=== PATIENT | female | born 1955 | race Caucasian/White ===

== ENCOUNTER 2018-02-08 07:48 | Observation (INO) | payer MEDICARE, OTHER ==
[~2018-02-08] VITALS: Ht 165.1 cm; Wt 109.1 kg
[~2018-02-08 07:48] MED LIST: ALPR1TAB2 PO; APIX5TAB3 PO; CARV-50 PO; CYCL-1 PO; FURO40TA4 PO; GLIM4TAB79 PO; LEVO100T PO; LEVO175T2 PO; METF500T PO; OXYC-150 PO; POTA10TA36 PO; ZES10T PO
[2018-02-08] MEDS ORDERED: dexamethasone sod phosphate 10mg/ml inj IV STA (08:09)
[2018-02-08] MEDS ORDERED: ketorolac trometh. 30mg/ml inj. IV ONE (08:10)
[2018-02-08] MEDS ORDERED: orphenadrine citrate 60mg/2ml inj. IM ONE (08:10)
[2018-02-08 10:27] LABS: BASOPHILS % (AUTO) 0.5 % (0-1); EOSINOPHILS # (AUTO) 0.2 X10'3 (0-0.9); EOSINOPHILS % (AUTO) 1.9 % (0-6); HEMATOCRIT 41.5 % (35.0-45.0); HEMOGLOBIN 13.6 g/dl (12.0-16.0); LYMPHOCYTES # (AUTO) 1.4 X10'3 (1.1-4.8); LYMPHOCYTES % (AUTO) 14.7 % (21-51); MEAN CORPUSCULAR HEMOGLOBIN 30.2 PG (27.0-31.0); MEAN CORPUSCULAR HGB CONC 32.8 % (33.0-36.5); MEAN CORPUSCULAR VOLUME 92.3 FL (78-98); MEAN PLATELET VOLUME 11.6 FL (7.4-10.4); MONOCYTES # (AUTO) 0.7 X10'3 (0-0.9); MONOCYTES % (AUTO) 6.9 % (2-12); NEUTROPHILS # (AUTO) 7.3 X10'3 (1.8-7.7); PLATELET COUNT 143 X10'3 (140-440); RED CELL DISTRIBUTION WIDTH 14.6 % (11.5-14.5); WHITE BLOOD COUNT 9.5 X10'3 (4.5-11.0)
[2018-02-08 10:28] LABS: INR 1.1 INR; PROTHROMBIN TIME 10.8 SECONDS (9.0-12.0)
[2018-02-08 10:39] LABS: ALANINE AMINOTRANSFERASE 10 U/L (12-78); ALBUMIN 3.6 G/DL (3.4-5.0); ALBUMIN/GLOBULIN RATIO 0.9 (1.1-1.5); ALKALINE PHOSPHATASE 91 IU/L (46-116); ANION GAP 12 (8-16); ASPARTATE AMINO TRANSFERASE 9 U/L (10-37); BILIRUBIN,TOTAL 0.5 MG/DL (0.1-1.0); BLOOD UREA NITROGEN 24 MG/DL (7-18); BUN/CREATININE RATIO 15.3 (6.6-38.0); CALCIUM 9.2 MG/DL (8.5-10.1); CHLORIDE 100 MMOL/L (99-107); CREATININE 1.57 MG/DL (0.40-0.90); POTASSIUM 3.7 MMOL/L (3.5-5.1); SODIUM 134 MMOL/L (135-145); TOTAL CARBON DIOXIDE 22.1 MMOL/L (24-32); TOTAL PROTEIN 7.4 G/DL (6.4-8.2); eGFR 33 ML/MIN
[2018-02-08 10:45] LABS: GLUCOSE 488 MG/DL (70-104)
[2018-02-08] MEDS ORDERED: heparin 25,000 UNIT/250ml bag 250 ML IV SCH (10:48)
[2018-02-08] MEDS ORDERED: heparin 10,000 units/1 ML INJ IV ONE (10:50)
[2018-02-08] MEDS ORDERED: heparin 10,000 units/1 ML INJ IV PRN (10:50)
[2018-02-08] MEDS ORDERED: normal saline 1000ML IV soln IVB ONE (11:00)
[2018-02-08] MEDS ORDERED: METFORMIN PO (11:13)
[2018-02-08] MEDS ORDERED: insulin regular, human 10 units/0.1 ml syringe SQ ONE ×2 (14:15→21:05)
[2018-02-08] MEDS ORDERED: morphine 4 MG/ML inj SYRINge IV ONE (14:55)
[2018-02-08] MEDS ORDERED: potassium Cl 20 mEq SR tablet PO PRN ×2 (16:25)
[2018-02-08] MEDS ORDERED: magnesium 1gm/100ml D5W IVPB 100 ML IV PRN (16:25)
[2018-02-08] MEDS ORDERED: magnesium 4gm in 100ml NS 100 ML IV PRN (16:25)
[2018-02-08] MEDS ORDERED: magnesium hydroxide 30ml (MOM) UD suspension PO PRN (16:25)
[2018-02-08] MEDS ORDERED: mag hydrox/Alum hydrox/simeth 30ml oral suspension PO PRN (16:25)
[2018-02-08] MEDS ORDERED: potassium Cl 40MEQ/NS 500ml 500 ML IV PRN ×2 (16:25)
[2018-02-08] MEDS ORDERED: magnesium Cl slow-release 64mg tablet PO PRN (16:25)
[2018-02-08] MEDS ORDERED: acetaminophen 325mg tablet PO PRN ×2 (16:25)
[2018-02-08] MEDS ORDERED: ALPRAZolam 0.5mg tablet PO PRN (17:15)
[2018-02-08] MEDS ORDERED: metFORMIN 500mg tablet PO SCH (17:30)
[2018-02-08] MEDS: morphine 2 MG/ML inj. syringe IV PRN (18:52)
[2018-02-08] MEDS: apixaban 5mg tablet PO SCH (19:40)
[2018-02-08] MEDS: carVEDilol 12.5mg tablet PO SCH (19:40)
[2018-02-08] MEDS ORDERED: glucagon, human recombinant 1mg kit SUBCUT PRN (19:45)
[2018-02-08] MEDS ORDERED: MESSAGE TO PHARMACY PO ONE (19:45)
[2018-02-08] MEDS ORDERED: dextrose 50%-water 50ml dispensing syringe IV PRN ×2 (19:45)
[2018-02-08] MEDS ORDERED: dextrose ORAL solution 15 GM/59 ML bottle PO PRN ×2 (19:45)
[2018-02-08] MEDS ORDERED: METFORMIN PO SCH (20:00)
[2018-02-08] MEDS ORDERED: ALPRAZOLAM PO SCH (20:00)
[2018-02-08 20:04] LABS: HEMOGLOBIN A1C 12.6 % (4.5-6.2)
[2018-02-08] MEDS ORDERED: insulin regular, human 10 units/0.1 ml syringe IV ONE (20:55)
[2018-02-08] MEDS ORDERED: temazepam 15mg capsule PO PRN (21:00)
[2018-02-08 21:20] VITALS: BP 136/74
[2018-02-08] MEDS: lisinopril 10 MG tablet PO SCH (21:43)
[2018-02-08] MEDS: insulin glargine (Lantus) pen - multi-dose SQ SCH (22:36)
[2018-02-08] MEDS: insulin Lispro (HumaLOG) vial - multi-dose SQ SCH (22:37)
[2018-02-09] VITALS (9 sets, daily range): BP systolic 72–118; BP diastolic 36–63
[2018-02-09] MEDS: oxyCODONE/APAP 10/325mg tablet PO PRN ×2 (02:13→16:30)
[2018-02-09] MEDS: morphine 2 MG/ML inj. syringe IV PRN (03:57)
[2018-02-09] MEDS: ondansetron/PF 4mg/2ml inj IV PRN ×3 (05:48→23:20)
[2018-02-09 06:20] LABS: HEMATOCRIT 37.3 % (35.0-45.0); HEMOGLOBIN 12.3 g/dl (12.0-16.0); MEAN CORPUSCULAR HEMOGLOBIN 30.3 PG (27.0-31.0); MEAN CORPUSCULAR HGB CONC 32.9 % (33.0-36.5); MEAN CORPUSCULAR VOLUME 92.1 FL (78-98); MEAN PLATELET VOLUME 10.4 FL (7.4-10.4); PLATELET COUNT 145 X10'3 (140-440); RED BLOOD COUNT 4.05 X10'6 (4.20-5.60); RED CELL DISTRIBUTION WIDTH 14.3 % (11.5-14.5); WHITE BLOOD COUNT 7.8 X10'3 (4.5-11.0)
[2018-02-09 07:12] LABS: ALBUMIN 3.3 G/DL (3.4-5.0); ANION GAP 12 (8-16); BLOOD UREA NITROGEN 30 MG/DL (7-18); BUN/CREATININE RATIO 20.4 (6.6-38.0); CALCIUM 9.2 MG/DL (8.5-10.1); CHLORIDE 99 MMOL/L (99-107); CREATININE 1.47 MG/DL (0.40-0.90); GLUCOSE 390 MG/DL (70-104); MAGNESIUM 1.8 MG/DL (1.5-2.4); POTASSIUM 3.9 MMOL/L (3.5-5.1); SODIUM 135 MMOL/L (135-145); TOTAL CARBON DIOXIDE 24.2 MMOL/L (24-32); eGFR 36 ML/MIN
[2018-02-09] MEDS: carVEDilol 12.5mg tablet PO SCH ×2 (07:53→19:58)
[2018-02-09] MEDS: apixaban 5mg tablet PO SCH ×2 (07:53→19:55)
[2018-02-09] MEDS: furosemide 40mg tablet PO SCH (07:54)
[2018-02-09] MEDS: potassium chloride 10mEq ER tablet PO SCH (07:54)
[2018-02-09] MEDS: K and/or MAG REPLACEMENT MC SCH (08:00)
[2018-02-09] MEDS ORDERED: levoTHYROXINE 100mcg tablet PO SCH (08:00)
[2018-02-09] MEDS: insulin Lispro (HumaLOG) vial - multi-dose SQ SCH ×2 (08:56→18:51)
[2018-02-09] MEDS: cyclobenzaprine 10mg tablet PO PRN (09:01)
[2018-02-09] MEDS ORDERED: levoTHYROXINE 75mcg tablet PO SCH (09:40)
[2018-02-09] MEDS ORDERED: levoTHYROXINE 25mcg tablet PO ONE (10:00)
[2018-02-09] MEDS: proCHLORperazine 5mg tablet PO PRN ×2 (11:23→17:34)
[2018-02-09] MEDS: nystatin 15 GM powder TP SCH ×2 (12:57→21:14)
[2018-02-09] MEDS ORDERED: normal saline 1000ml 1,000 ML IV ONE (19:40)
[2018-02-09] MEDS: lisinopril 10 MG tablet PO SCH (19:57)
[2018-02-09] MEDS: normal saline 1000ml 1,000 ML IV SCH ×2 (21:06→23:14)
[2018-02-09] MEDS: insulin glargine (Lantus) pen - multi-dose SQ SCH (21:13)
[2018-02-09] MEDS: DOPamine 400mg/D5W 250ml 250 ML IV SCH (23:29)
[2018-02-10] VITALS (18 sets, daily range): BP systolic 77–120; BP diastolic 31–82
[2018-02-10] MEDS ORDERED: diphenhydrAMINE 50 mg/ml inj IV PRN (00:05)
[2018-02-10] MEDS: proCHLORperazine 10 MG/2 ml inj IV PRN ×2 (00:28→15:18)
[2018-02-10 03:43] LABS: CLARITY,URINE CLOUDY (Clear); COLOR,URINE YELLOW (Yellow); GLUCOSE, URINE NEGATIVE (Neg); KETONES,URINE TRACE mg/dl (Neg); LEUKOCYTE ESTERASE ,URINE MODERATE (Neg); NITRITES, URINE NEGATIVE (Neg); OCCULT BLOOD,URINE LARGE (Neg); PROTEIN,URINE 100 mg/dl (Neg); UROBILINOGEN,URINE 0.2 E.U/dL (0.2-1.0)
[2018-02-10 03:45] LABS: UA COLLECTION TYPE NON-SPECIFIED
[2018-02-10 04:05] LABS: BACTERIA,URINE 4+ /HPF (Neg); SQUAMOUS EPITHELIAL CELL,UR MODERATE /LPF (FEW); WBC,URINE TNTC /HPF (0-4); YEAST MODERATE /HPF (NEGATIVE)
[2018-02-10] MEDS: oxyCODONE/APAP 10/325mg tablet PO PRN ×3 (04:41→19:19)
[2018-02-10 06:03] LABS: HEMATOCRIT 37.5 % (35.0-45.0); HEMOGLOBIN 12.3 g/dl (12.0-16.0); MEAN CORPUSCULAR HEMOGLOBIN 30.4 PG (27.0-31.0); MEAN CORPUSCULAR HGB CONC 32.8 % (33.0-36.5); MEAN CORPUSCULAR VOLUME 92.7 FL (78-98); MEAN PLATELET VOLUME 11.1 FL (7.4-10.4); PLATELET COUNT 182 X10'3 (140-440); RED BLOOD COUNT 4.05 X10'6 (4.20-5.60); RED CELL DISTRIBUTION WIDTH 14.4 % (11.5-14.5); WHITE BLOOD COUNT 9.7 X10'3 (4.5-11.0)
[2018-02-10 06:15] LABS: ALBUMIN 3.3 G/DL (3.4-5.0); ANION GAP 11 (8-16); BLOOD UREA NITROGEN 42 MG/DL (7-18); BUN/CREATININE RATIO 20.7 (6.6-38.0); CALCIUM 8.7 MG/DL (8.5-10.1); CHLORIDE 101 MMOL/L (99-107); CREATININE 2.03 MG/DL (0.40-0.90); GLUCOSE 287 MG/DL (70-104); MAGNESIUM 1.9 MG/DL (1.5-2.4); POTASSIUM 4.3 MMOL/L (3.5-5.1); SODIUM 136 MMOL/L (135-145); TOTAL CARBON DIOXIDE 24.4 MMOL/L (24-32); eGFR 25 ML/MIN
[2018-02-10] MEDS: carVEDilol 12.5mg tablet PO SCH (07:48)
[2018-02-10] MEDS: apixaban 5mg tablet PO SCH ×2 (07:48→19:18)
[2018-02-10] MEDS: furosemide 40mg tablet PO SCH (07:48)
[2018-02-10] MEDS: potassium chloride 10mEq ER tablet PO SCH (07:48)
[2018-02-10] MEDS: levoTHYROXINE 75mcg tablet PO SCH (07:49)
[2018-02-10] MEDS: CefTRIAXone/D5W-Rocephin 1gm 50 ML IV SCH ×2 (07:49→19:20)
[2018-02-10] MEDS: insulin Lispro (HumaLOG) vial - multi-dose SQ SCH ×2 (07:53→13:07)
[2018-02-10] MEDS: K and/or MAG REPLACEMENT MC SCH (08:00)
[2018-02-10] MEDS: DOPamine 400mg/D5W 250ml 250 ML IV SCH (08:00)
[2018-02-10] MEDS: nystatin 15 GM powder TP SCH ×3 (08:00→20:45)
[2018-02-10] MEDS ORDERED: normal saline 1000ml 1,000 ML IV ONE (10:40)
[2018-02-10] MEDS: normal saline 1000ml 1,000 ML IV SCH (11:53)
[2018-02-10] MEDS: carVEDilol 3.125mg tablet PO SCH (19:18)
[2018-02-10] MEDS: pantoprazole 40mg Tablet.DR PO SCH (19:18)
[2018-02-10] MEDS: cyclobenzaprine 10mg tablet PO PRN (20:45)
[2018-02-10] MEDS: insulin glargine (Lantus) pen - multi-dose SQ SCH (21:47)
[2018-02-11] MEDS: oxyCODONE/APAP 10/325mg tablet PO PRN ×2 (01:13→07:21)
[2018-02-11 03:00] VITALS: BP 108/63
[2018-02-11] MEDS: normal saline 1000ml 1,000 ML IV SCH (04:27)
[2018-02-11] MEDS: cyclobenzaprine 10mg tablet PO PRN (05:55)
[2018-02-11 06:38] LABS: HEMATOCRIT 34.1 % (35.0-45.0); HEMOGLOBIN 11.2 g/dl (12.0-16.0); MEAN CORPUSCULAR HEMOGLOBIN 30.4 PG (27.0-31.0); MEAN CORPUSCULAR HGB CONC 32.8 % (33.0-36.5); MEAN CORPUSCULAR VOLUME 92.7 FL (78-98); MEAN PLATELET VOLUME 10.8 FL (7.4-10.4); PLATELET COUNT 151 X10'3 (140-440); RED BLOOD COUNT 3.68 X10'6 (4.20-5.60); RED CELL DISTRIBUTION WIDTH 15.1 % (11.5-14.5); WHITE BLOOD COUNT 6.8 X10'3 (4.5-11.0)
[2018-02-11 06:54] LABS: ALBUMIN 2.8 G/DL (3.4-5.0); ANION GAP 8 (8-16); BLOOD UREA NITROGEN 46 MG/DL (7-18); BUN/CREATININE RATIO 21.8 (6.6-38.0); CHLORIDE 104 MMOL/L (99-107); CREATININE 2.11 MG/DL (0.40-0.90); GLUCOSE 204 MG/DL (70-104); MAGNESIUM 1.8 MG/DL (1.5-2.4); POTASSIUM 4.8 MMOL/L (3.5-5.1); SODIUM 135 MMOL/L (135-145); TOTAL CARBON DIOXIDE 22.6 MMOL/L (24-32); eGFR 24 ML/MIN
[2018-02-11 07:00] VITALS: BP 81/37
[2018-02-11 07:15] VITALS: BP 106/61
[2018-02-11] MEDS: levoTHYROXINE 75mcg tablet PO SCH (07:20)
[2018-02-11] MEDS: CefTRIAXone/D5W-Rocephin 1gm 50 ML IV SCH (07:20)
[2018-02-11] MEDS: pantoprazole 40mg Tablet.DR PO SCH (07:21)
[2018-02-11] MEDS: carVEDilol 3.125mg tablet PO SCH (07:22)
[2018-02-11] MEDS: furosemide 40mg tablet PO SCH (07:22)
[2018-02-11] MEDS: apixaban 5mg tablet PO SCH (07:22)
[2018-02-11] MEDS: nystatin 15 GM powder TP SCH ×2 (07:39→13:00)
[2018-02-11] MEDS: potassium chloride 10mEq ER tablet PO SCH (07:39)
[2018-02-11] MEDS: K and/or MAG REPLACEMENT MC SCH (07:39)
[2018-02-11] MEDS ORDERED: magnesium 2GM in 50ml NS 50 ML IV PRN (08:36)
[2018-02-11] MEDS: insulin Lispro (HumaLOG) vial - multi-dose SQ SCH ×2 (09:17→13:32)
[2018-02-11] MEDS: proCHLORperazine 10 MG/2 ml inj IV PRN (09:30)
[2018-02-11 11:00] VITALS: BP 119/58
[2018-02-11] MEDS ORDERED: FURO-150 PO (14:16)
[2018-02-11] MEDS ORDERED: COR3.125T PO (14:16)
[2018-02-11] MEDS ORDERED: ASPI-611 PO (14:16)
[2018-02-11] MEDS ORDERED: LISI2.5T2 PO (14:16)
[2018-02-11] MEDS ORDERED: APIX5TAB3 PO (14:16)
[2018-02-11] MEDS ORDERED: PANT40TA4 PO (14:16)
[2018-02-11] MEDS ORDERED: NYSPWD TP (14:16)
[2018-02-11] MEDS ORDERED: LANTUS SQ (14:16)
[2018-02-11] MEDS ORDERED: ALPR1TAB2 PO (14:16)
[2018-02-11] MEDS ORDERED: LEVO75TA7 PO (14:16)
[2018-02-11] MEDS ORDERED: CEFD300C3 PO (14:27)
[2018-02-11 15:00] VITALS: BP 97/47
== END 2018-02-11 16:25 | disposition home or self-care (01) ==
LOC: ER 07:48 → ED HOLD 16:24 → ORTHO 4S 21:26 → PCU 3S 02-09 22:56
PROVIDERS: ADMIT Family Medicine; ATTEND Family Medicine
DX: M51.36 Other intervertebral disc degeneration, lumbar region (principal); R26.2 Difficulty in walking, not elsewhere classified; I13.0 Hypertensive heart and chronic kidney disease with heart failure and stage 1 through stage 4 chronic kidney disease, or unspecified chronic kidney disease; E11.22 Type 2 diabetes mellitus with diabetic chronic kidney disease; I50.9 Heart failure, unspecified; N18.9 Chronic kidney disease, unspecified; E78.00 Pure hypercholesterolemia, unspecified; E87.1 Hypo-osmolality and hyponatremia; E89.0 Postprocedural hypothyroidism; I25.10 Atherosclerotic heart disease of native coronary artery without angina pectoris; I82.402 Acute embolism and thrombosis of unspecified deep veins of left lower extremity; I82.511 Chronic embolism and thrombosis of right femoral vein; I25.2 Old myocardial infarction; J44.9 Chronic obstructive pulmonary disease, unspecified; K21.9 Gastro-esophageal reflux disease without esophagitis; G89.29 Other chronic pain; E66.01 Morbid (severe) obesity due to excess calories; Z79.01 Long term (current) use of anticoagulants; Z86.711 Personal history of pulmonary embolism; Z91.19 Patient's noncompliance with other medical treatment and regimen; Z95.5 Presence of coronary angioplasty implant and graft
CPT/HCPCS: 36415; 72100; 74176; 80048; 80053; 81001; 82948; 83036; 83735; 84443; 85025; 85027; 85610; 85730; 87070; 87077; 87088; 87186; 93005; 93306; 93970; 96365; 96366; 96367; 96368; 96372; 96375; 96376; 97116; 97161; 97530; 97535; 99285; G0378; J0696; J0780; J1100; J1200; J1265; J1644; J1815; J1885; J2270; J2360; J2405; J7030; Q0164; Q2037

== ENCOUNTER 2018-05-18 12:48 | Inpatient (IN) | payer MEDICARE, OTHER | END 2018-05-21 16:45 | disposition home or self-care (01) | LOC: ER 12:48 → PCU 3S 05-19 02:51 → ED HOLD 14:35 ==

== ENCOUNTER 2018-06-05 14:08 | Emergency (ER) | payer MEDICARE, OTHER ==
[~2018-06-05] VITALS: Ht 162.6 cm; Wt 113.6 kg
[~2018-06-05 14:08] MED LIST changes: +ACET-812 PO; -ALPR1TAB2 PO; -APIX5TAB3 PO; -CARV-50 PO; +CARV3.122 PO; -CYCL-1 PO; +FAMO40TA73 PO; +FURO-149 PO; -FURO40TA4 PO; +GABA100C PO; -LEVO100T PO; -LEVO175T2 PO; +LEVO75TA7 PO; +LISI2.5T2 PO; +METF-436 PO; -METF500T PO; +NPH,100V2 SQ; -OXYC-150 PO; +PER5325T PO; +WARF-55 PO; -ZES10T PO
[2018-06-05 14:26] VITALS: BP 151/95
[2018-06-05 15:31] LABS: BASOPHILS # (AUTO) 0.1 X10'3 (0-0.2); EOSINOPHILS # (AUTO) 0.1 X10'3 (0-0.9); EOSINOPHILS % (AUTO) 1.2 % (0-6); HEMATOCRIT 43.8 % (35.0-45.0); LYMPHOCYTES % (AUTO) 15.7 % (21-51); MEAN CORPUSCULAR HEMOGLOBIN 28.4 PG (27.0-31.0); MEAN CORPUSCULAR HGB CONC 31.9 g/dL (33.0-36.5); MONOCYTES # (AUTO) 0.4 X10'3 (0-0.9); MONOCYTES % (AUTO) 7.1 % (2-12); NEUTROPHILS # (AUTO) 4.6 X10'3 (1.8-7.7); PLATELET COUNT 224 X10'3 (140-440); RED BLOOD COUNT 4.92 X10'6 (4.20-5.60); RED CELL DISTRIBUTION WIDTH 16.1 % (11.5-14.5); WHITE BLOOD COUNT 6.2 X10'3 (4.5-11.0)
[2018-06-05 15:40] LABS: INR 1.7 INR; PROTHROMBIN TIME 16.8 SECONDS (9.0-12.0)
[2018-06-05 15:53] LABS: ALANINE AMINOTRANSFERASE 33 U/L (12-78); ALBUMIN 3.6 G/DL (3.4-5.0); ALBUMIN/GLOBULIN RATIO 0.9 (1.1-1.5); ALKALINE PHOSPHATASE 188 IU/L (46-116); ANION GAP 13 (8-16); ASPARTATE AMINO TRANSFERASE 22 U/L (10-37); BILIRUBIN,TOTAL 0.6 MG/DL (0.1-1.0); BLOOD UREA NITROGEN 24 MG/DL (7-18); BUN/CREATININE RATIO 15.9 (6.6-38.0); CALCIUM 9.3 MG/DL (8.5-10.1); CHLORIDE 96 MMOL/L (99-107); CREATININE 1.51 MG/DL (0.40-0.90); POTASSIUM 3.5 MMOL/L (3.5-5.1); SODIUM 137 MMOL/L (135-145); TOTAL CARBON DIOXIDE 27.7 MMOL/L (24-32); TOTAL PROTEIN 7.5 G/DL (6.4-8.2); eGFR 35 ML/MIN
[2018-06-05 15:55] LABS: GLUCOSE 543 MG/DL (70-104)
--- NOTE | 2018-06-05 16:56 | NUR ---
PT STATED, HASNT TAKEN HER METFORMIN IN A FEW DAYS BECAUSE SHES NOT FEELING WELL. PT HAD A SMOOTHIE TODAY. INFORMED DR. OVERTON.
[2018-06-05] MEDS ORDERED: furosemide 10 MG/1 ML 10ml inj IV ONE (17:05)
[2018-06-05] MEDS ORDERED: NPH, human insulin isophane inj. SQ STA (17:09)
[2018-06-05] MEDS ORDERED: metFORMIN 500mg tablet PO ONE ×2 (17:10)
--- NOTE | 2018-06-05 17:26 | NUR ---
nph 40units 0.4 verified with loly maxwell.
[2018-06-05] MEDS ORDERED: BUDE10.2 INH (17:52)
[2018-06-05] MEDS ORDERED: ALBU18HF2 INH (17:52)
== END 2018-06-05 18:10 | disposition home or self-care (01) ==
LOC: ER 14:08
DX: I11.0 Hypertensive heart disease with heart failure (principal); I50.20 Unspecified systolic (congestive) heart failure; I50.84 End stage heart failure; E11.65 Type 2 diabetes mellitus with hyperglycemia; I25.10 Atherosclerotic heart disease of native coronary artery without angina pectoris; E78.00 Pure hypercholesterolemia, unspecified; I25.2 Old myocardial infarction; J44.9 Chronic obstructive pulmonary disease, unspecified; K21.9 Gastro-esophageal reflux disease without esophagitis; E11.9 Type 2 diabetes mellitus without complications; M19.90 Unspecified osteoarthritis, unspecified site; G89.29 Other chronic pain; Z86.718 Personal history of other venous thrombosis and embolism; Z90.710 Acquired absence of both cervix and uterus; Z95.1 Presence of aortocoronary bypass graft; Z95.0 Presence of cardiac pacemaker; Z88.6 Allergy status to analgesic agent; Z88.1 Allergy status to other antibiotic agents; Z88.2 Allergy status to sulfonamides; Z88.8 Allergy status to other drugs, medicaments and biological substances; Z79.01 Long term (current) use of anticoagulants
CPT/HCPCS: 36415; 71045; 80053; 83880; 84484; 85025; 85610; 93005; 96372; 96374; 99284; J1940

== ENCOUNTER 2018-10-02 14:54 | Observation (INO) | payer MEDICARE ==
[~2018-10-02] VITALS: Ht 162.6 cm; Wt 100.0 kg
[~2018-10-02 14:54] MED LIST changes: +ALBU18HF2 INH; +BUDE10.2 INH; +CYCL-1 PO
--- NOTE | 2018-10-02 15:13 | NUR ---
[facility] WITH C/O GLF YESTERDAY EVENING. STATES SHE TRIED TO CATCH HERSELF BY GRABBING ONTO DOOR FRAME, BUT NOW IS HAVING PAIN IN LEFT SHOULDER,RADIATING DOWN LEFT ARM. FELL TO THE GROUND ON BUTTOCKS AND C/O LOWER BACK AND BUTTOCK PAIN RATED 8/10. DENIES HITTING HEAD OR LOSS OF CONSCIOUSNESS.
[2018-10-02 16:20] LABS: BASOPHILS # (AUTO) 0.1 X10'3 (0-0.2); EOSINOPHILS # (AUTO) 0.1 X10'3 (0-0.9); EOSINOPHILS % (AUTO) 1.6 % (0-6); HEMATOCRIT 44.9 % (35.0-45.0); HEMOGLOBIN 14.5 g/dl (12.0-16.0); LYMPHOCYTES % (AUTO) 16.6 % (21-51); MEAN CORPUSCULAR HEMOGLOBIN 29.2 PG (27.0-31.0); MEAN CORPUSCULAR HGB CONC 32.2 g/dL (33.0-36.5); MEAN CORPUSCULAR VOLUME 90.6 FL (78-98); MONOCYTES # (AUTO) 0.5 X10'3 (0-0.9); NEUTROPHILS # (AUTO) 4.5 X10'3 (1.8-7.7); NEUTROPHILS % (AUTO) 72.8 % (42-75); PLATELET COUNT 197 X10'3 (140-440); RED BLOOD COUNT 4.95 X10'6 (4.20-5.60); RED CELL DISTRIBUTION WIDTH 16.2 % (11.5-14.5); WHITE BLOOD COUNT 6.1 X10'3 (4.5-11.0)
[2018-10-02 16:34] LABS: ALANINE AMINOTRANSFERASE 9 U/L (12-78); ALBUMIN/GLOBULIN RATIO 0.9 (1.1-1.5); ALKALINE PHOSPHATASE 97 IU/L (46-116); ANION GAP 11 (8-16); ASPARTATE AMINO TRANSFERASE 8 U/L (10-37); BILIRUBIN,TOTAL 0.9 MG/DL (0.1-1.0); BLOOD UREA NITROGEN 13 MG/DL (7-18); BUN/CREATININE RATIO 9.7 (6.6-38.0); CALCIUM 8.4 MG/DL (8.5-10.1); CHLORIDE 98 MMOL/L (99-107); CREATININE 1.34 MG/DL (0.40-0.90); MAGNESIUM 1.6 MG/DL (1.5-2.4); SODIUM 138 MMOL/L (135-145); TOTAL CARBON DIOXIDE 29.2 MMOL/L (24-32); TOTAL PROTEIN 6.5 G/DL (6.4-8.2); TROPONIN I < 0.04 NG/ML (0.0-0.05); eGFR 40 ML/MIN
[2018-10-02 16:40] LABS: GLUCOSE 482 MG/DL (70-104)
[2018-10-02 16:41] LABS: POTASSIUM 2.7 MMOL/L (3.5-5.1)
[2018-10-02] MEDS ORDERED: potassium Cl 20 mEq SR tablet PO ONE (17:15)
[2018-10-02] MEDS ORDERED: magnesium 2GM in 50ml NS 50 ML IV ONE (17:15)
[2018-10-02] MEDS ORDERED: potassium 10mEq/100ml NS w/LIDOcaine (10mg/bag) IV ONE (17:15)
[2018-10-02] MEDS ORDERED: potassium CL 10mEq/100ml bag 100 ML IV ONE (17:15)
[2018-10-02] MEDS ORDERED: normal saline 1000ML IV soln IVB ONE (17:45)
[2018-10-02] MEDS ORDERED: insulin regular, human 10 units/0.1 ml syringe SQ ONE (17:45)
[2018-10-02] MEDS ORDERED: morphine 4 MG/ML inj SYRINge IV ONE (17:55)
[2018-10-02] MEDS ORDERED: ALBU8.5H8 INH (18:23)
[2018-10-02] MEDS ORDERED: diphenhydrAMINE 50 mg/ml inj IV ONE (19:15)
[2018-10-02 19:37] LABS: CLARITY,URINE SLIGHTLY CLOUDY (Clear); COLOR,URINE YELLOW (Yellow); GLUCOSE, URINE >=1000 mg/dl (Neg); KETONES,URINE NEGATIVE (Neg); LEUKOCYTE ESTERASE ,URINE SMALL (Neg); NITRITES, URINE NEGATIVE (Neg); OCCULT BLOOD,URINE MODERATE (Neg); PROTEIN,URINE 100 mg/dl (Neg); UROBILINOGEN,URINE 0.2 E.U/dL (0.2-1.0)
[2018-10-02 19:39] LABS: UA COLLECTION TYPE OTHER
[2018-10-02 19:51] LABS: BACTERIA,URINE 4+ /HPF (Neg); SQUAMOUS EPITHELIAL CELL,UR FEW /LPF (FEW); WBC CLUMPS,URINE MODERATE /HPF (NEGATIVE); WBC,URINE TNTC /HPF (0-4)
[2018-10-02] MEDS ORDERED: magnesium hydroxide 30ml (MOM) UD suspension PO PRN (20:35)
[2018-10-02] MEDS ORDERED: potassium Cl 20 mEq SR tablet PO PRN (20:35)
[2018-10-02] MEDS ORDERED: acetaminophen 325mg tablet PO PRN ×2 (20:35)
[2018-10-02] MEDS ORDERED: mag hydrox/Alum hydrox/simeth 30ml oral suspension PO PRN (20:35)
[2018-10-02] MEDS ORDERED: potassium CL 10mEq/100ml bag 100 ML IV PRN ×2 (20:35)
[2018-10-02 20:49] LABS: POTASSIUM 2.6 MMOL/L (3.5-5.1)
[2018-10-02] MEDS ORDERED: insulin glargine (Lantus) pen - multi-dose SQ SCH (21:00)
[2018-10-02] MEDS: potassium Cl 20 mEq SR tablet PO PRN (21:11)
[2018-10-02] MEDS ORDERED: dextrose 50%-water 50ml dispensing syringe IV PRN ×2 (22:05)
[2018-10-02] MEDS ORDERED: dextrose ORAL solution 15 GM/59 ML bottle PO PRN ×2 (22:05)
[2018-10-02] MEDS ORDERED: glucagon, human recombinant 1mg kit SUBCUT PRN (22:05)
[2018-10-02] MEDS ORDERED: oxyCODONE/APAP 10/325mg tablet PO PRN (22:10)
[2018-10-02 22:15] VITALS: BP 133/86
[2018-10-02] MEDS: insulin Lispro (HumaLOG) vial - multi-dose SQ SCH (22:43)
[2018-10-02 23:10] LABS: HEMOGLOBIN A1C 12.4 % (4.5-6.2)
[2018-10-03] MEDS: potassium Cl 20 mEq SR tablet PO PRN (02:18)
[2018-10-03] MEDS: ondansetron/PF 4mg/2ml inj IV PRN ×2 (03:21→11:48)
[2018-10-03 05:24] LABS: BASOPHILS # (AUTO) 0.1 X10'3 (0-0.2); BASOPHILS % (AUTO) 1.2 % (0-1); EOSINOPHILS # (AUTO) 0.1 X10'3 (0-0.9); EOSINOPHILS % (AUTO) 2.5 % (0-6); HEMATOCRIT 45.4 % (35.0-45.0); HEMOGLOBIN 14.9 g/dl (12.0-16.0); LYMPHOCYTES # (AUTO) 1.4 X10'3 (1.1-4.8); LYMPHOCYTES % (AUTO) 24.8 % (21-51); MEAN CORPUSCULAR HEMOGLOBIN 29.7 PG (27.0-31.0); MEAN CORPUSCULAR HGB CONC 32.8 g/dL (33.0-36.5); MEAN CORPUSCULAR VOLUME 90.6 FL (78-98); MEAN PLATELET VOLUME 10.6 FL (7.4-10.4); MONOCYTES # (AUTO) 0.5 X10'3 (0-0.9); MONOCYTES % (AUTO) 8.4 % (2-12); NEUTROPHILS # (AUTO) 3.6 X10'3 (1.8-7.7); NEUTROPHILS % (AUTO) 63.1 % (42-75); PLATELET COUNT 183 X10'3 (140-440); RED BLOOD COUNT 5.01 X10'6 (4.20-5.60); RED CELL DISTRIBUTION WIDTH 16.7 % (11.5-14.5); WHITE BLOOD COUNT 5.8 X10'3 (4.5-11.0)
[2018-10-03 05:25] LABS: ALBUMIN 3.2 G/DL (3.4-5.0); ANION GAP 5 (8-16); BLOOD UREA NITROGEN 14 MG/DL (7-18); BUN/CREATININE RATIO 11.7 (6.6-38.0); CALCIUM 8.9 MG/DL (8.5-10.1); CHLORIDE 101 MMOL/L (99-107); GLUCOSE 361 MG/DL (70-104); POTASSIUM 3.5 MMOL/L (3.5-5.1); SODIUM 138 MMOL/L (135-145); TOTAL CARBON DIOXIDE 32.3 MMOL/L (24-32); eGFR 45 ML/MIN
[2018-10-03 06:00] VITALS: BP 119/86
--- NOTE | 2018-10-03 06:11 | NUR ---
Reviewed all of [facility] RN charting and in agreement for this shift including medication administration.
--- NOTE | 2018-10-03 06:33 | NUR ---
Report given to Alisha HERNANDEZ.
[2018-10-03] MEDS ORDERED: K and/or MAG REPLACEMENT MC SCH (08:00)
[2018-10-03] MEDS: insulin Lispro (HumaLOG) vial - multi-dose SQ SCH ×2 (09:13→13:27)
--- NOTE | 2018-10-03 09:30 | NUR ---
Report to Rachel HERNANDEZ
[2018-10-03 10:00] VITALS: BP 108/71
[2018-10-03] MEDS ORDERED: diphenhydrAMINE 25 MG/10 ML UD oral solution PO ONE (11:05)
[2018-10-03] MEDS ORDERED: PER5325T PO (12:19)
--- NOTE | 2018-10-03 14:23 | NUR ---
Patient discharged home at 1415. PIV removed with cannula intact, telemetry monitoring discontinued. Patient discharge paperwork and education was reviewed before signing. Patient belongings and packet were sent with the patient home. Patient was given medication prescription and was wheeled down by staff. Patient left via private vehicle with friend to her home.
--- NOTE | 2018-10-03 15:21 | NUR ---
DM Consult: A1C 12.4. Pt declined verbal DM ed during RD visit; written DM ed and RD contact information left at bedside. Addendum: 10/03/18 at [address] Amended: Links added.
[2018-10-03] MEDS ORDERED: insulin glargine (Lantus) pen - multi-dose SQ SCH (21:00)
== END 2018-10-03 14:25 | disposition home or self-care (01) ==
LOC: ER 14:54 → ORTHO 4S 20:40
PROVIDERS: ADMIT Hospitalist; ATTEND Hospitalist
DX: M25.512 Pain in left shoulder (principal); R20.0 Anesthesia of skin; E03.9 Hypothyroidism, unspecified; I11.0 Hypertensive heart disease with heart failure; I50.22 Chronic systolic (congestive) heart failure; E87.6 Hypokalemia; K31.84 Gastroparesis; I25.10 Atherosclerotic heart disease of native coronary artery without angina pectoris; E78.00 Pure hypercholesterolemia, unspecified; K21.9 Gastro-esophageal reflux disease without esophagitis; G89.29 Other chronic pain; F32.9 Major depressive disorder, single episode, unspecified; J44.9 Chronic obstructive pulmonary disease, unspecified; I25.2 Old myocardial infarction; E11.9 Type 2 diabetes mellitus without complications; Z90.49 Acquired absence of other specified parts of digestive tract; Z95.0 Presence of cardiac pacemaker; Z98.61 Coronary angioplasty status
CPT/HCPCS: 36415; 70450; 71045; 72110; 72125; 72170; 73030; 80048; 80053; 81001; 82947; 82948; 83036; 83735; 84132; 84484; 85025; 85610; 85730; 87077; 87081; 87088; 87186; 96361; 96365; 96366; 96368; 96372; 96375; 96376; 99284; G0378; J1200; J1815; J2270; J2405; J3475; J3480; Q0163

== ENCOUNTER 2018-10-13 08:02 | Inpatient (IN) | payer MEDICARE ==
[~2018-10-13] VITALS: Ht 162.6 cm; Wt 100.0 kg
[~2018-10-13 08:02] MED LIST changes: -ACET-812 PO; -ALBU18HF2 INH; +ALBU8.5H8 INH; -BUDE10.2 INH; -CYCL-1 PO; -GABA100C PO; +GLIM4TAB4 PO; -GLIM4TAB79 PO
[2018-10-13 09:17] LABS: ALANINE AMINOTRANSFERASE 25 U/L (12-78); ALBUMIN 3.2 G/DL (3.4-5.0); ALBUMIN/GLOBULIN RATIO 0.9 (1.1-1.5); ALKALINE PHOSPHATASE 170 IU/L (46-116); ANION GAP 10 (8-16); ASPARTATE AMINO TRANSFERASE 23 U/L (10-37); BILIRUBIN,TOTAL 0.9 MG/DL (0.1-1.0); BLOOD UREA NITROGEN 23 MG/DL (7-18); BUN/CREATININE RATIO 15.5 (6.6-38.0); CALCIUM 8.8 MG/DL (8.5-10.1); CHLORIDE 98 MMOL/L (99-107); CREATININE 1.48 MG/DL (0.40-0.90); LIPASE 211 U/L (73-393); POTASSIUM 3.8 MMOL/L (3.5-5.1); SODIUM 131 MMOL/L (135-145); TOTAL PROTEIN 6.7 G/DL (6.4-8.2); eGFR 35 ML/MIN
[2018-10-13 09:21] LABS: GLUCOSE 480 MG/DL (70-104)
[2018-10-13 09:24] LABS: PARTIAL THROMBOPLASTIN TIME 37 SECONDS (22-32)
[2018-10-13 09:35] LABS: BASOPHILS # (AUTO) 0.1 X10'3 (0-0.2); BASOPHILS % (AUTO) 1.2 % (0-1); EOSINOPHILS # (AUTO) 0.1 X10'3 (0-0.9); LYMPHOCYTES # (AUTO) 1.2 X10'3 (1.1-4.8)
[2018-10-13 09:37] LABS: CLARITY,URINE CLOUDY (Clear); COLOR,URINE YELLOW (Yellow); GLUCOSE, URINE >=1000 mg/dl (Neg); KETONES,URINE NEGATIVE (Neg); LEUKOCYTE ESTERASE ,URINE MODERATE (Neg); NITRITES, URINE NEGATIVE (Neg); OCCULT BLOOD,URINE MODERATE (Neg); PH,URINE 7.5 (4.8-8.0); PROTEIN,URINE 100 mg/dl (Neg); UROBILINOGEN,URINE 0.2 E.U/dL (0.2-1.0)
[2018-10-13 09:37] LABS: HEMATOCRIT 43.1 % (35.0-45.0); HEMOGLOBIN 14.3 g/dl (12.0-16.0); LYMPHOCYTES % (AUTO) 21.6 % (21-51); MEAN CORPUSCULAR HEMOGLOBIN 29.8 PG (27.0-31.0); MEAN CORPUSCULAR HGB CONC 33.1 g/dL (33.0-36.5); MEAN PLATELET VOLUME 10.4 FL (7.4-10.4); MONOCYTES # (AUTO) 0.4 X10'3 (0-0.9); MONOCYTES % (AUTO) 7.4 % (2-12); NEUTROPHILS # (AUTO) 3.7 X10'3 (1.8-7.7); NEUTROPHILS % (AUTO) 67.8 % (42-75); RED BLOOD COUNT 4.79 X10'6 (4.20-5.60); RED CELL DISTRIBUTION WIDTH 16.7 % (11.5-14.5); WHITE BLOOD COUNT 5.4 X10'3 (4.5-11.0)
[2018-10-13 09:38] LABS: URINE HCG NEGATIVE (NEG)
[2018-10-13] MEDS ORDERED: furosemide 10 MG/1 ML 10ml inj IV ONE (09:40)
[2018-10-13 09:46] LABS: UA COLLECTION TYPE CLN CATCH MIDSTREAM
[2018-10-13 09:49] LABS: BACTERIA,URINE 4+ /HPF (Neg); MUCUS STRANDS FEW /LPF (Neg); SQUAMOUS EPITHELIAL CELL,UR MODERATE /LPF (FEW); WBC,URINE 30-50 /HPF (0-4)
[2018-10-13 09:59] LABS: PLATELET COUNT 210 X10'3 (140-440)
[2018-10-13] MEDS ORDERED: cephalexin 250mg capsule PO ONE (10:10)
[2018-10-13] MEDS ORDERED: acetaminophen 325mg tablet PO PRN ×2 (10:15)
[2018-10-13] MEDS ORDERED: dextrose 50%-water 50ml dispensing syringe IV PRN ×2 (10:15)
[2018-10-13] MEDS ORDERED: magnesium hydroxide 30ml (MOM) UD suspension PO PRN (10:15)
[2018-10-13] MEDS ORDERED: dextrose ORAL solution 15 GM/59 ML bottle PO PRN ×2 (10:15)
[2018-10-13] MEDS ORDERED: glucagon, human recombinant 1mg kit SUBCUT PRN (10:15)
[2018-10-13] MEDS ORDERED: MESSAGE TO PHARMACY PO ONE (10:15)
[2018-10-13] MEDS ORDERED: mag hydrox/Alum hydrox/simeth 30ml oral suspension PO PRN (10:15)
[2018-10-13 12:01] LABS: HEMOGLOBIN A1C 12.8 % (4.5-6.2)
--- NOTE | 2018-10-13 12:03 | NUR ---
Patient in ED. I have received report from DAVID Mathur and had the opportunity to ask questions. Awaiting pt's arrival to PCU room 3011.
--- NOTE | 2018-10-13 12:11 | NUR ---
Pt arrived from ED via gurney. Pt ambulated independently from gurney to bed without difficulty. Pt oriented to room, including call light use and TV function. Vital signs obtained, lunch tray ordered. Will continue to closely monitor.
[2018-10-13 12:30] VITALS: BP 119/80
--- NOTE | 2018-10-13 14:02 | NUR ---
Messaged pharmacy to send up insulins for pt.
[2018-10-13] MEDS: insulin Lispro (HumaLOG) vial - multi-dose SQ SCH ×2 (15:35→19:21)
[2018-10-13] MEDS: ondansetron/PF 4mg/2ml inj IV PRN (17:24)
[2018-10-13 18:00] VITALS: BP 125/78
--- NOTE | 2018-10-13 18:38 | NUR ---
Problems reprioritized. Patient report given, questions answered & plan of care reviewed with DAVID Aceves.
--- NOTE | 2018-10-13 19:00 | NUR ---
Patient in room PCU 3011. I have received report from Grace HERNANDEZ and had the opportunity to ask questions and assume patient care.
[2018-10-13] MEDS ORDERED: albuterol 2.5 MG/3 ML nebule NEB PRN (19:10)
[2018-10-13] MEDS: famotidine 20mg tablet PO SCH (21:17)
[2018-10-13] MEDS: carVEDilol 3.125mg tablet PO SCH (21:17)
[2018-10-13] MEDS: furosemide 40mg/4ml inj IV SCH (21:18)
[2018-10-13 22:00] VITALS: BP 102/58
[2018-10-13] MEDS: insulin glargine (Lantus) pen - multi-dose SQ SCH (23:12)
[2018-10-14] VITALS (7 sets, daily range): BP systolic 98–119; BP diastolic 53–76
[2018-10-14 06:10] LABS: BASOPHILS # (AUTO) 0.1 X10'3 (0-0.2); BASOPHILS % (AUTO) 1.1 % (0-1); EOSINOPHILS # (AUTO) 0.2 X10'3 (0-0.9); EOSINOPHILS % (AUTO) 2.8 % (0-6); HEMATOCRIT 42.4 % (35.0-45.0); HEMOGLOBIN 13.9 g/dl (12.0-16.0); LYMPHOCYTES # (AUTO) 1.4 X10'3 (1.1-4.8); LYMPHOCYTES % (AUTO) 25.2 % (21-51); MEAN CORPUSCULAR HEMOGLOBIN 29.4 PG (27.0-31.0); MEAN CORPUSCULAR HGB CONC 32.8 g/dL (33.0-36.5); MEAN CORPUSCULAR VOLUME 89.6 FL (78-98); MEAN PLATELET VOLUME 10.6 FL (7.4-10.4); MONOCYTES # (AUTO) 0.4 X10'3 (0-0.9); MONOCYTES % (AUTO) 7.6 % (2-12); NEUTROPHILS # (AUTO) 3.6 X10'3 (1.8-7.7); NEUTROPHILS % (AUTO) 63.3 % (42-75); PLATELET COUNT 176 X10'3 (140-440); RED BLOOD COUNT 4.73 X10'6 (4.20-5.60); RED CELL DISTRIBUTION WIDTH 16.6 % (11.5-14.5); WHITE BLOOD COUNT 5.7 X10'3 (4.5-11.0)
[2018-10-14 06:22] LABS: ALBUMIN 2.8 G/DL (3.4-5.0); ANION GAP 8 (8-16); BLOOD UREA NITROGEN 28 MG/DL (7-18); BUN/CREATININE RATIO 17.4 (6.6-38.0); CALCIUM 9.4 MG/DL (8.5-10.1); CHLORIDE 101 MMOL/L (99-107); CREATININE 1.61 MG/DL (0.40-0.90); GLUCOSE 164 MG/DL (70-104); POTASSIUM 3.4 MMOL/L (3.5-5.1); SODIUM 138 MMOL/L (135-145); eGFR 32 ML/MIN
--- NOTE | 2018-10-14 07:10 | NUR ---
Problems reprioritized. Patient report given, questions answered & plan of care reviewed with Grace HERNANDEZ.
[2018-10-14] MEDS: carVEDilol 3.125mg tablet PO SCH ×2 (08:00→20:00)
[2018-10-14] MEDS: K and/or MAG REPLACEMENT MC SCH (08:00)
[2018-10-14] MEDS: lisinopril 2.5mg tablet PO SCH (08:00)
[2018-10-14] MEDS: famotidine 20mg tablet PO SCH ×2 (08:27→20:21)
[2018-10-14] MEDS: potassium chloride 10mEq ER tablet PO SCH (08:27)
[2018-10-14] MEDS: levoTHYROXINE 75mcg tablet PO SCH (08:27)
[2018-10-14] MEDS: furosemide 40mg/4ml inj IV SCH ×2 (08:30→20:20)
[2018-10-14] MEDS: insulin Lispro (HumaLOG) vial - multi-dose SQ SCH ×3 (08:45→19:30)
[2018-10-14] MEDS: ondansetron/PF 4mg/2ml inj IV PRN ×2 (08:47→20:21)
--- NOTE | 2018-10-14 09:15 | NUR ---
Dr. Gabriel at bedside. Orders received for PT, electrolyte replacement protocol and to have PPM interrogated.
--- NOTE | 2018-10-14 10:11 | NUR ---
Called [employer] & [employer] to obtain PPM interrogation. Pt not in either company's system. Will contact further companies.
[2018-10-14] MEDS ORDERED: potassium CL 10mEq/100ml bag 100 ML IV PRN ×2 (10:30)
--- NOTE | 2018-10-14 11:40 | NUR ---
Paged Dr. Gabriel re pt's request for gabapentin now. PAGER ID: [phone] MESSAGE: Pt Mari Delong in 301 wants gabapentin now, not scheduled until 1600. OK for dose now? thanks! Grace HERNANDEZ [phone]
[2018-10-14] MEDS: potassium Cl 20 mEq SR tablet PO PRN ×2 (13:18→21:49)
--- NOTE | 2018-10-14 14:22 | NUR ---
DM consult: Pt with A1c 12.8 previously admitted and seen by ELSA 10/03/18 and provided with written DM ed with referral to outpatient DM class and RD contact information; no further education warranted at this time. Pt admit with CHF. Pt currently on heart healthy CHO controlled diet with documented 75-100% PO intake meeting nutrient needs. LB 10/11, pt with MoM PRN. Will continue to follow. Recommendations: 1) Continue with heart healthy CHO controlled diet 2) Monitor need for f/u verbal DM education 3) Routine bowel care 4) Wt per rx Addendum: 10/14/18 at [address] Amended: Links added.
[2018-10-14] MEDS: oxyCODONE/APAP 5-325mg tablet PO PRN (14:58)
[2018-10-14] MEDS: gabapentin 300mg capsule PO SCH (16:53)
--- NOTE | 2018-10-14 18:37 | NUR ---
Problems reprioritized. Patient report given, questions answered & plan of care reviewed with Rose RN.
--- NOTE | 2018-10-14 19:30 | NUR ---
pt is obese; states denies having any edema Addendum: 10/15/18 at 0157 by Mariposa Rodriguez RN Amended: Links added.
[2018-10-14] MEDS ORDERED: warfarin 5mg tablet PO SCH (21:00)
[2018-10-14] MEDS: insulin glargine (Lantus) pen - multi-dose SQ SCH (21:46)
[2018-10-14] MEDS ORDERED: proCHLORperazine 10 MG/2 ml inj IV PRN (22:35)
[2018-10-15] VITALS (7 sets, daily range): BP systolic 88–130; BP diastolic 46–82
[2018-10-15 05:36] LABS: EOSINOPHILS # (AUTO) 0.1 X10'3 (0-0.9); EOSINOPHILS % (AUTO) 2.6 % (0-6); HEMATOCRIT 43.1 % (35.0-45.0); HEMOGLOBIN 14.1 g/dl (12.0-16.0); LYMPHOCYTES # (AUTO) 1.5 X10'3 (1.1-4.8); LYMPHOCYTES % (AUTO) 30.9 % (21-51); MEAN CORPUSCULAR HEMOGLOBIN 29.5 PG (27.0-31.0); MEAN CORPUSCULAR HGB CONC 32.7 g/dL (33.0-36.5); MEAN CORPUSCULAR VOLUME 90.2 FL (78-98); MEAN PLATELET VOLUME 10.4 FL (7.4-10.4); MONOCYTES # (AUTO) 0.5 X10'3 (0-0.9); MONOCYTES % (AUTO) 9.7 % (2-12); NEUTROPHILS # (AUTO) 2.8 X10'3 (1.8-7.7); NEUTROPHILS % (AUTO) 55.8 % (42-75); PLATELET COUNT 190 X10'3 (140-440); RED BLOOD COUNT 4.78 X10'6 (4.20-5.60); RED CELL DISTRIBUTION WIDTH 16.4 % (11.5-14.5)
[2018-10-15 05:39] LABS: ALBUMIN 2.9 G/DL (3.4-5.0); ANION GAP 8 (8-16); BLOOD UREA NITROGEN 35 MG/DL (7-18); BUN/CREATININE RATIO 23.8 (6.6-38.0); CALCIUM 9.3 MG/DL (8.5-10.1); CHLORIDE 101 MMOL/L (99-107); CREATININE 1.47 MG/DL (0.40-0.90); GLUCOSE 188 MG/DL (70-104); SODIUM 139 MMOL/L (135-145); TOTAL CARBON DIOXIDE 29.9 MMOL/L (24-32); eGFR 36 ML/MIN
--- NOTE | 2018-10-15 07:07 | NUR ---
Patient in room PCU 3011. I have received report from loly dumont and had the opportunity to ask questions and assume patient care.
[2018-10-15] MEDS: carVEDilol 3.125mg tablet PO SCH ×2 (08:00→19:23)
[2018-10-15] MEDS: K and/or MAG REPLACEMENT MC SCH (08:00)
[2018-10-15] MEDS: furosemide 40mg/4ml inj IV SCH (08:31)
[2018-10-15] MEDS: potassium chloride 10mEq ER tablet PO SCH (08:34)
[2018-10-15] MEDS: gabapentin 300mg capsule PO SCH ×4 (08:36→23:54)
[2018-10-15] MEDS: levoTHYROXINE 75mcg tablet PO SCH (08:37)
[2018-10-15] MEDS: famotidine 20mg tablet PO SCH ×2 (08:37→19:18)
[2018-10-15] MEDS: lisinopril 2.5mg tablet PO SCH (08:38)
[2018-10-15] MEDS: insulin Lispro (HumaLOG) vial - multi-dose SQ SCH ×3 (08:49→19:23)
--- NOTE | 2018-10-15 10:12 | NUR ---
PAGER ID: [phone] MESSAGE: DR. ROOT, 1485L/DIONI, URINE CX + E COLI. NOT ON ABX. CUONG [id number]. TY
[2018-10-15] MEDS: oxyCODONE/APAP 5-325mg tablet PO PRN (11:00)
--- NOTE | 2018-10-15 14:30 | NUR ---
STATES "I FEEL A LITTLE DIZZY, NEED TO CHECK MY BLOOD PRESSURE AND BLOOD SUGAR" BP WAS STABLE, ACCUCHECK WAS 74. STATES "THAT IS TO LOW FOR ME, I GET SYMPTOMATIC LESS THEN 80" PER REQUEST, GAVE ON APPLE JUICE, AND 2 PACKAGES GRAM CRACKERS.
--- NOTE | 2018-10-15 16:47 | NUR ---
PAGER ID: [phone] MESSAGE: DR. ROOT, 5765J/DIONI, SHE IS REQUESTING WE CHANGE SECOND DOSE OF LASIX TO EARLIER IN THE DAY THEN 1999? CUONG [id number]. TY
[2018-10-15] MEDS ORDERED: furosemide 40mg/4ml inj IV ONE (16:50)
--- NOTE | 2018-10-15 17:55 | NUR ---
PAGER ID: [phone] MESSAGE: DR. ROOT, MAKING SURE YOU KNEW Fortino/DIONI, COREG HELD THIS AM FOR HR 58. CUONG. [id number]. TY.
--- NOTE | 2018-10-15 18:30 | NUR ---
Problems reprioritized. Patient report given, questions answered & plan of care reviewed with DAVID FIGUEROA.
[2018-10-15] MEDS: insulin glargine (Lantus) pen - multi-dose SQ SCH (21:00)
[2018-10-15] MEDS ORDERED: warfarin 5mg tablet PO ONE (21:00)
[2018-10-16 03:00] VITALS: BP 106/76
[2018-10-16 05:30] LABS: ALBUMIN 3.1 G/DL (3.4-5.0); ANION GAP 8 (8-16); BLOOD UREA NITROGEN 34 MG/DL (7-18); BUN/CREATININE RATIO 21.3 (6.6-38.0); CHLORIDE 98 MMOL/L (99-107); GLUCOSE 156 MG/DL (70-104); POTASSIUM 4.2 MMOL/L (3.5-5.1); SODIUM 138 MMOL/L (135-145); TOTAL CARBON DIOXIDE 32.3 MMOL/L (24-32); eGFR 32 ML/MIN
[2018-10-16 05:54] LABS: BASOPHILS % (AUTO) 0.6 % (0-1); EOSINOPHILS # (AUTO) 0.1 X10'3 (0-0.9); EOSINOPHILS % (AUTO) 2.6 % (0-6); HEMATOCRIT 44.3 % (35.0-45.0); HEMOGLOBIN 14.6 g/dl (12.0-16.0); LYMPHOCYTES # (AUTO) 1.4 X10'3 (1.1-4.8); LYMPHOCYTES % (AUTO) 29.7 % (21-51); MEAN CORPUSCULAR HEMOGLOBIN 29.7 PG (27.0-31.0); MEAN CORPUSCULAR HGB CONC 33.1 g/dL (33.0-36.5); MEAN CORPUSCULAR VOLUME 89.9 FL (78-98); MEAN PLATELET VOLUME 10.3 FL (7.4-10.4); MONOCYTES # (AUTO) 0.4 X10'3 (0-0.9); MONOCYTES % (AUTO) 9.6 % (2-12); NEUTROPHILS # (AUTO) 2.7 X10'3 (1.8-7.7); NEUTROPHILS % (AUTO) 57.5 % (42-75); PLATELET COUNT 213 X10'3 (140-440); RED BLOOD COUNT 4.93 X10'6 (4.20-5.60); RED CELL DISTRIBUTION WIDTH 16.9 % (11.5-14.5); WHITE BLOOD COUNT 4.7 X10'3 (4.5-11.0)
[2018-10-16 06:00] VITALS: BP 108/62
--- NOTE | 2018-10-16 06:30 | NUR ---
Patient in room PCU 3011. I have received report from loly benitez and had the opportunity to ask questions and assume patient care.
[2018-10-16] MEDS: potassium chloride 10mEq ER tablet PO SCH (07:37)
[2018-10-16] MEDS: levoTHYROXINE 75mcg tablet PO SCH (07:37)
[2018-10-16] MEDS: lisinopril 2.5mg tablet PO SCH (07:38)
[2018-10-16] MEDS: carVEDilol 3.125mg tablet PO SCH (07:39)
[2018-10-16] MEDS: famotidine 20mg tablet PO SCH (07:39)
[2018-10-16] MEDS: gabapentin 300mg capsule PO SCH (07:39)
[2018-10-16] MEDS: oxyCODONE/APAP 5-325mg tablet PO PRN (07:40)
[2018-10-16] MEDS: furosemide 40mg/4ml inj IV SCH ×2 (07:51→15:00)
[2018-10-16] MEDS: K and/or MAG REPLACEMENT MC SCH (08:00)
[2018-10-16] MEDS ORDERED: GLIM4TAB4 PO (08:52)
[2018-10-16] MEDS ORDERED: GABA300C PO (08:52)
[2018-10-16] MEDS ORDERED: FURO-149 PO (08:52)
[2018-10-16] MEDS: insulin Lispro (HumaLOG) vial - multi-dose SQ SCH ×2 (08:56→14:23)
--- NOTE | 2018-10-16 09:31 | NUR ---
ATTEMPT TO MAKE FU CHF APPOINTMENT WITH PRIMARY MD, DR. LEVI. UNABLE TO, BECAUSE SHE IS NOT ESTABLISHED THERE, PAPERWORK IS IN THE MAIL AND DR. LEVI'S OFFICE HAS NOT RECEIVED, PER "NATHANAEL"
--- NOTE | 2018-10-16 09:55 | NUR ---
PAGER ID: [phone] MESSAGE: DR. ROOT, 3011A/DIONI HAS DISCHARGE INSTRUCTIONS, BUT NO DISCHARGE ROUTINE? CUONG [id number]. TY.
[2018-10-16 11:00] VITALS: BP 121/58
--- NOTE | 2018-10-16 11:58 | NUR ---
LAST BM 12/12. PT STATES "IT IS NOT A PROBLEM"
[2018-10-16] MEDS ORDERED: furosemide 40mg/4ml inj IV SCH (15:00)
--- NOTE | 2018-10-16 15:00 | NUR ---
NEW HIRE care professionals: I have reviewed and agree with all interventions, assessments performed and documented by DAVID CAPONE.
--- NOTE | 2018-10-16 15:21 | NUR ---
Pt discharged at 1501 to home. Picked up by friend in person vehicle. All personal belongings with pt
[2018-10-16] MEDS ORDERED: warfarin 5mg tablet PO SCH (21:00)
[2018-10-16] MEDS ORDERED: warfarin 7.5mg tablet PO ONE (21:00)
== END 2018-10-16 15:07 | disposition home or self-care (01) | DRG 291 ==
LOC: ER 08:03 → PCU 3S 12:11
PROVIDERS: ADMIT Internal Medicine; ATTEND Internal Medicine
PROC: 4B02XTZ Measurement of Cardiac Defibrillator, External Approach (ICD-10-PCS; principal; 2018-10-15)
DX: I13.0 Hypertensive heart and chronic kidney disease with heart failure and stage 1 through stage 4 chronic kidney disease, or unspecified chronic kidney disease (principal); I50.23 Acute on chronic systolic (congestive) heart failure; E11.65 Type 2 diabetes mellitus with hyperglycemia; E11.21 Type 2 diabetes mellitus with diabetic nephropathy; E11.22 Type 2 diabetes mellitus with diabetic chronic kidney disease; E03.9 Hypothyroidism, unspecified; E11.649 Type 2 diabetes mellitus with hypoglycemia without coma; E78.00 Pure hypercholesterolemia, unspecified; I25.10 Atherosclerotic heart disease of native coronary artery without angina pectoris; I34.0 Nonrheumatic mitral (valve) insufficiency; J44.9 Chronic obstructive pulmonary disease, unspecified; K21.9 Gastro-esophageal reflux disease without esophagitis; R79.1 Abnormal coagulation profile; I49.5 Sick sinus syndrome; M19.90 Unspecified osteoarthritis, unspecified site; G89.29 Other chronic pain; F32.9 Major depressive disorder, single episode, unspecified; N18.3 Chronic kidney disease, stage 3 (moderate); I48.0 Paroxysmal atrial fibrillation; Z79.01 Long term (current) use of anticoagulants; Z88.2 Allergy status to sulfonamides; Z88.1 Allergy status to other antibiotic agents; Z88.6 Allergy status to analgesic agent; Z88.8 Allergy status to other drugs, medicaments and biological substances; Z82.49 Family history of ischemic heart disease and other diseases of the circulatory system; I25.2 Old myocardial infarction; Z79.84 Long term (current) use of oral hypoglycemic drugs; Z79.899 Other long term (current) drug therapy; Z80.8 Family history of malignant neoplasm of other organs or systems; Z86.711 Personal history of pulmonary embolism; Z79.890 Hormone replacement therapy; Z90.49 Acquired absence of other specified parts of digestive tract; Z86.718 Personal history of other venous thrombosis and embolism; Z87.891 Personal history of nicotine dependence; Z91.14 Patient's other noncompliance with medication regimen; Z95.810 Presence of automatic (implantable) cardiac defibrillator
CPT/HCPCS: 36415; 71045; 80048; 80053; 81001; 81025; 82948; 83036; 83690; 83880; 84443; 84484; 85025; 85610; 85730; 87077; 87081; 87088; 87186; 93005; 93306; 96374; 97116; 97161; 97530; 99285; G0378; J0780; J1815; J1940; J2405

== ENCOUNTER 2018-11-25 18:09 | Emergency (ER) | payer MEDICARE ==
[~2018-11-25] VITALS: Ht 160 cm; Wt 109.1 kg
[~2018-11-25 18:09] MED LIST changes: +GABA300C PO; -METF-436 PO; -PER5325T PO
[2018-11-25] MEDS ORDERED: oxyCODONE/APAP 5-325mg tablet PO ONE (18:35)
[2018-11-25 19:44] VITALS: BP 117/59
== END 2018-11-25 19:46 | disposition home or self-care (01) ==
LOC: ER 18:10
DX: M25.561 Pain in right knee (principal); M25.562 Pain in left knee; G89.29 Other chronic pain; I25.10 Atherosclerotic heart disease of native coronary artery without angina pectoris; I11.0 Hypertensive heart disease with heart failure; I50.9 Heart failure, unspecified; E78.00 Pure hypercholesterolemia, unspecified; I25.2 Old myocardial infarction; J44.9 Chronic obstructive pulmonary disease, unspecified; K21.9 Gastro-esophageal reflux disease without esophagitis; E11.9 Type 2 diabetes mellitus without complications; M19.90 Unspecified osteoarthritis, unspecified site; Z86.718 Personal history of other venous thrombosis and embolism; Z95.5 Presence of coronary angioplasty implant and graft; Z95.0 Presence of cardiac pacemaker; Z90.49 Acquired absence of other specified parts of digestive tract; Z88.8 Allergy status to other drugs, medicaments and biological substances; Z88.5 Allergy status to narcotic agent; Z88.2 Allergy status to sulfonamides; Z88.1 Allergy status to other antibiotic agents; Z79.01 Long term (current) use of anticoagulants; W18.49XA Other slipping, tripping and stumbling without falling, initial encounter; Y93.89 Activity, other specified; Y92.89 Other specified places as the place of occurrence of the external cause; Y99.9 Unspecified external cause status
CPT/HCPCS: 73560; 99284

== ENCOUNTER 2019-04-02 19:57 | Emergency (ER) | payer MEDICARE ==
[~2019-04-02] VITALS: Ht 162.6 cm; Wt 109.1 kg
[~2019-04-02 19:57] MED LIST changes: -GLIM4TAB4 PO; +GLIM4TAB7 PO
[2019-04-02 20:22] LABS: BASOPHILS # (AUTO) 0.1 X10'3 (0-0.2); BASOPHILS % (AUTO) 1.2 % (0-1); EOSINOPHILS # (AUTO) 0.1 X10'3 (0-0.9); EOSINOPHILS % (AUTO) 1.4 % (0-6); HEMATOCRIT 41.4 % (35.0-45.0); HEMOGLOBIN 13.7 g/dl (12.0-16.0); LYMPHOCYTES # (AUTO) 1.6 X10'3 (1.1-4.8); LYMPHOCYTES % (AUTO) 23.4 % (21-51); MEAN CORPUSCULAR HEMOGLOBIN 31.9 PG (27.0-31.0); MEAN CORPUSCULAR VOLUME 96.7 FL (78-98); MEAN PLATELET VOLUME 9.5 FL (7.4-10.4); MONOCYTES # (AUTO) 0.5 X10'3 (0-0.9); NEUTROPHILS # (AUTO) 4.5 X10'3 (1.8-7.7); PLATELET COUNT 239 X10'3 (140-440); RED BLOOD COUNT 4.29 X10'6 (4.20-5.60); RED CELL DISTRIBUTION WIDTH 14.7 % (11.5-14.5); WHITE BLOOD COUNT 6.8 X10'3 (4.5-11.0)
[2019-04-02 20:31] LABS: ALANINE AMINOTRANSFERASE 30 U/L (12-78); ALBUMIN 3.4 G/DL (3.4-5.0); ALBUMIN/GLOBULIN RATIO 0.9 (1.1-1.5); ALKALINE PHOSPHATASE 101 IU/L (46-116); ANION GAP 10 (8-16); ASPARTATE AMINO TRANSFERASE 24 U/L (10-37); BILIRUBIN,TOTAL 0.4 MG/DL (0.1-1.0); BLOOD UREA NITROGEN 21 MG/DL (7-18); BUN/CREATININE RATIO 15.6 (6.6-38.0); CALCIUM 8.3 MG/DL (8.5-10.1); CHLORIDE 107 MMOL/L (99-107); CREATININE 1.35 MG/DL (0.40-0.90); GLUCOSE 288 MG/DL (70-104); POTASSIUM 4.1 MMOL/L (3.5-5.1); SODIUM 140 MMOL/L (135-145); TOTAL CARBON DIOXIDE 23.3 MMOL/L (24-32); TOTAL PROTEIN 7.2 G/DL (6.4-8.2); eGFR 39 ML/MIN
--- NOTE | 2019-04-02 20:48 | NUR ---
Pt requesting pain meds for 8 out of [address] moon for tylenol 650 mg x1 now.
[2019-04-02 20:51] LABS: LIPASE 223 U/L (73-393)
[2019-04-02] MEDS ORDERED: proCHLORperazine 10 MG/2 ml inj IV ONE (21:30)
[2019-04-02] MEDS ORDERED: acetaminophen 325mg tablet PO ONE (21:30)
--- NOTE | 2019-04-02 22:36 | NUR ---
trop, 2 hr lactic and 2nd set of blood cultures drawn.
--- NOTE | 2019-04-02 22:45 | NUR ---
pt with stable vs and mild headache. gait test with walker and sba and only able to walk 10 feet. states she was getting weak.
[2019-04-02 23:16] LABS: CLARITY,URINE CLOUDY (Clear); COLOR,URINE YELLOW (Yellow); GLUCOSE, URINE NEGATIVE (Neg); KETONES,URINE NEGATIVE (Neg); LEUKOCYTE ESTERASE ,URINE MODERATE (Neg); NITRITES, URINE NEGATIVE (Neg); OCCULT BLOOD,URINE SMALL (Neg); PROTEIN,URINE 100 mg/dl (Neg); UROBILINOGEN,URINE 0.2 E.U/dL (0.2-1.0)
[2019-04-02 23:25] LABS: UA COLLECTION TYPE OTHER
[2019-04-02 23:26] LABS: BACTERIA,URINE 4+ /HPF (Neg); WBC,URINE TNTC /HPF (0-4)
[2019-04-02 23:27] LABS: MUCUS STRANDS MODERATE /LPF (Neg); SQUAMOUS EPITHELIAL CELL,UR MODERATE /LPF (FEW); TRIPLE PHOSPHATE CRYST 4+ /HPF (NEGATIVE)
--- NOTE | 2019-04-02 23:48 | NUR ---
Per pt., her neighbor Love will provide transportation for her to get back home. Love called at this time and was informed that pt. will soon be discharged home.
[2019-04-03] MEDS ORDERED: CefTRIAXone/D5W-Rocephin 1gm 50 ML IV ONE (00:10)
[2019-04-03] MEDS ORDERED: cephalexin 250mg capsule PO ONE (00:10)
[2019-04-03] MEDS ORDERED: CEPH500C5 PO (00:12)
[2019-04-03] MEDS ORDERED: PROC-8 PO (00:15)
[2019-04-03 00:49] VITALS: BP 104/72
== END 2019-04-03 00:50 | disposition home or self-care (01) ==
LOC: ER 19:58
DX: N39.0 Urinary tract infection, site not specified (principal); R53.1 Weakness; I25.10 Atherosclerotic heart disease of native coronary artery without angina pectoris; E78.00 Pure hypercholesterolemia, unspecified; I25.2 Old myocardial infarction; J44.9 Chronic obstructive pulmonary disease, unspecified; K21.9 Gastro-esophageal reflux disease without esophagitis; M19.90 Unspecified osteoarthritis, unspecified site; G89.29 Other chronic pain; F17.200 Nicotine dependence, unspecified, uncomplicated; E11.22 Type 2 diabetes mellitus with diabetic chronic kidney disease; N18.9 Chronic kidney disease, unspecified; I50.9 Heart failure, unspecified; Z95.5 Presence of coronary angioplasty implant and graft; Z90.49 Acquired absence of other specified parts of digestive tract; Z95.0 Presence of cardiac pacemaker; Z88.1 Allergy status to other antibiotic agents; Z88.5 Allergy status to narcotic agent; Z88.2 Allergy status to sulfonamides; Z88.8 Allergy status to other drugs, medicaments and biological substances; Z79.899 Other long term (current) drug therapy; Z79.01 Long term (current) use of anticoagulants
CPT/HCPCS: 36415; 71045; 80053; 81001; 83605; 83690; 83880; 84484; 85025; 87040; 87077; 87088; 87186; 93005; 96365; 96375; 99284; J0696; J0780

== ENCOUNTER 2019-04-23 21:01 | Inpatient (IN) | payer MEDICARE ==
[~2019-04-23] VITALS: Ht 160 cm; Wt 137.3 kg
[~2019-04-23 21:01] MED LIST changes: +CEPH500C5 PO; +PROC-8 PO
[2019-04-23] MEDS ORDERED: normal saline 1000ML IV soln IVB ONE (22:05)
[2019-04-23 22:07] LABS: BASOPHILS # (AUTO) 0.1 X10'3 (0-0.2); BASOPHILS % (AUTO) 0.7 % (0-1); EOSINOPHILS % (AUTO) 0.5 % (0-6); HEMATOCRIT 43.1 % (35.0-45.0); HEMOGLOBIN 14.3 g/dl (12.0-16.0); LYMPHOCYTES # (AUTO) 0.9 X10'3 (1.1-4.8); LYMPHOCYTES % (AUTO) 9.2 % (21-51); MEAN CORPUSCULAR HEMOGLOBIN 31.5 PG (27.0-31.0); MEAN CORPUSCULAR HGB CONC 33.1 g/dL (33.0-36.5); MEAN CORPUSCULAR VOLUME 95.1 FL (78-98); MEAN PLATELET VOLUME 9.8 FL (7.4-10.4); MONOCYTES # (AUTO) 0.8 X10'3 (0-0.9); NEUTROPHILS # (AUTO) 7.9 X10'3 (1.8-7.7); NEUTROPHILS % (AUTO) 81.6 % (42-75); PLATELET COUNT 272 X10'3 (140-440); RED BLOOD COUNT 4.53 X10'6 (4.20-5.60); RED CELL DISTRIBUTION WIDTH 15.1 % (11.5-14.5); WHITE BLOOD COUNT 9.7 X10'3 (4.5-11.0)
[2019-04-23 22:19] LABS: ALANINE AMINOTRANSFERASE 15 U/L (12-78); ALBUMIN 3.2 G/DL (3.4-5.0); ALBUMIN/GLOBULIN RATIO 0.8 (1.1-1.5); ALKALINE PHOSPHATASE 101 IU/L (46-116); ANION GAP 9 (8-16); ASPARTATE AMINO TRANSFERASE 9 U/L (10-37); BLOOD UREA NITROGEN 21 MG/DL (7-18); BUN/CREATININE RATIO 12.7 (6.6-38.0); CALCIUM 8.8 MG/DL (8.5-10.1); CHLORIDE 104 MMOL/L (99-107); CREATININE 1.66 MG/DL (0.40-0.90); GLUCOSE 402 MG/DL (70-104); POTASSIUM 4.2 MMOL/L (3.5-5.1); SODIUM 136 MMOL/L (135-145); TOTAL PROTEIN 7.2 G/DL (6.4-8.2); eGFR 31 ML/MIN
[2019-04-23 22:43] LABS: CLARITY,URINE CLOUDY (Clear); COLOR,URINE YELLOW (Yellow); GLUCOSE, URINE 500 mg/dl (Neg); KETONES,URINE NEGATIVE (Neg); LEUKOCYTE ESTERASE ,URINE SMALL (Neg); NITRITES, URINE NEGATIVE (Neg); OCCULT BLOOD,URINE MODERATE (Neg); PH,URINE 5.5 (4.8-8.0); PROTEIN,URINE 100 mg/dl (Neg); UROBILINOGEN,URINE 0.2 E.U/dL (0.2-1.0)
[2019-04-23 22:44] LABS: UA COLLECTION TYPE STRAIGHT CATH
[2019-04-23 22:53] LABS: BACTERIA,URINE 2+ /HPF (Neg); SQUAMOUS EPITHELIAL CELL,UR FEW /LPF (FEW); WBC,URINE TNTC /HPF (0-4)
[2019-04-23] MEDS ORDERED: CefTRIAXone/D5W-Rocephin 1gm 50 ML IV ONE (23:00)
[2019-04-23] MEDS ORDERED: acetaminophen 325mg tablet PO ONE (23:05)
[2019-04-23] MEDS ORDERED: ondansetron 4mg/5ml UD cup PO ONE (23:05)
[2019-04-23] MEDS ORDERED: PRAV40TA3 PO (23:35)
[2019-04-23] MEDS ORDERED: LANTUS SQ (23:35)
[2019-04-23] MEDS ORDERED: GABA-532 PO (23:35)
[2019-04-23] MEDS ORDERED: AMA1T PO (23:35)
[2019-04-23] MEDS ORDERED: METF500T PO (23:35)
[2019-04-23] MEDS ORDERED: LISI-600 PO (23:35)
[2019-04-23] MEDS ORDERED: FURO-150 PO (23:35)
[2019-04-23] MEDS ORDERED: CARV-50 PO (23:35)
[2019-04-23] MEDS ORDERED: COU7.5T PO (23:35)
[2019-04-23] MEDS ORDERED: LEVO150T8 PO (23:35)
[2019-04-23] MEDS ORDERED: COU5T PO (23:35)
--- NOTE | 2019-04-24 01:05 | NUR ---
NOTIFIED PT UNABLE TO PASS GAIT TEST
[2019-04-24] MEDS ORDERED: magnesium Cl slow-release 64mg tablet PO PRN (01:35)
[2019-04-24] MEDS ORDERED: magnesium 4gm in 100ml NS 100 ML IV PRN (01:35)
[2019-04-24] MEDS ORDERED: potassium Cl 20 mEq SR tablet PO PRN ×2 (01:35)
[2019-04-24] MEDS ORDERED: mag hydrox/Alum hydrox/simeth 30ml oral suspension PO PRN (01:35)
[2019-04-24] MEDS ORDERED: magnesium 2GM in 50ml NS 50 ML IV PRN (01:35)
[2019-04-24] MEDS ORDERED: acetaminophen 325mg tablet PO PRN (01:35)
[2019-04-24] MEDS ORDERED: potassium CL 10mEq/100ml bag 100 ML IV PRN ×2 (01:35)
[2019-04-24] MEDS ORDERED: glucagon, human recombinant 1mg kit SUBCUT PRN (01:40)
[2019-04-24] MEDS ORDERED: MESSAGE TO PHARMACY PO ONE (01:40)
[2019-04-24] MEDS ORDERED: dextrose 50%-water 50ml dispensing syringe IV PRN ×2 (01:40)
[2019-04-24] MEDS ORDERED: dextrose ORAL solution 15 GM/59 ML bottle PO PRN ×2 (01:40)
--- NOTE | 2019-04-24 02:35 | NUR ---
Received report from Rikki HERNANDEZ in the ER. Patient arrived at 0235 on gurney, saline locked, room air, alert and oriented. No signs of distress will continue to monitor
[2019-04-24 02:40] VITALS: BP 99/60
[2019-04-24] MEDS: acetaminophen 325mg tablet PO PRN ×3 (03:41→20:31)
[2019-04-24 04:09] LABS: HEMOGLOBIN A1C 9.9 % (4.5-6.2)
--- NOTE | 2019-04-24 06:00 | NUR ---
Patient in room [facility]. I have received report from Tori HERNANDEZ and had the opportunity to ask questions and assume patient care.
--- NOTE | 2019-04-24 06:09 | NUR ---
Problems reprioritized. Patient report given, questions answered & plan of care reviewed with Pushpa HERNANDEZ.
--- NOTE | 2019-04-24 06:10 | NUR ---
Problems reprioritized. Patient report given, questions answered & plan of care reviewed with Pushpa HERNANDEZ.
[2019-04-24 06:57] LABS: ALBUMIN 2.6 G/DL (3.4-5.0); ANION GAP 13 (8-16); BLOOD UREA NITROGEN 23 MG/DL (7-18); BUN/CREATININE RATIO 13.9 (6.6-38.0); CALCIUM 8.3 MG/DL (8.5-10.1); CHLORIDE 105 MMOL/L (99-107); CREATININE 1.65 MG/DL (0.40-0.90); GLUCOSE 362 MG/DL (70-104); SODIUM 136 MMOL/L (135-145); eGFR 31 ML/MIN
[2019-04-24 07:22] VITALS: BP 116/59
[2019-04-24] MEDS: K and/or MAG REPLACEMENT MC SCH ×2 (08:00→20:00)
[2019-04-24] MEDS ORDERED: furosemide 20MG tablet PO SCH (08:00)
[2019-04-24] MEDS ORDERED: carVEDilol 12.5mg tablet PO SCH (08:00)
[2019-04-24] MEDS ORDERED: lisinopril 20mg tablet PO SCH (08:00)
[2019-04-24] MEDS: levoTHYROXINE 125mcg tablet PO SCH (08:17)
[2019-04-24] MEDS: insulin Lispro (HumaLOG) vial - multi-dose SQ SCH ×3 (08:22→18:49)
[2019-04-24 08:57] LABS: BASOPHILS # (AUTO) 0.1 X10'3 (0-0.2); EOSINOPHILS % (AUTO) 0.1 % (0-6); HEMATOCRIT 40.6 % (35.0-45.0); HEMOGLOBIN 13.4 g/dl (12.0-16.0); LYMPHOCYTES # (AUTO) 0.8 X10'3 (1.1-4.8); LYMPHOCYTES % (AUTO) 8.7 % (21-51); MEAN CORPUSCULAR HEMOGLOBIN 31.4 PG (27.0-31.0); MEAN CORPUSCULAR HGB CONC 33.1 g/dL (33.0-36.5); MEAN CORPUSCULAR VOLUME 94.8 FL (78-98); MEAN PLATELET VOLUME 9.5 FL (7.4-10.4); MONOCYTES # (AUTO) 0.8 X10'3 (0-0.9); NEUTROPHILS # (AUTO) 7.8 X10'3 (1.8-7.7); NEUTROPHILS % (AUTO) 82.2 % (42-75); PLATELET COUNT 252 X10'3 (140-440); RED BLOOD COUNT 4.28 X10'6 (4.20-5.60); RED CELL DISTRIBUTION WIDTH 14.7 % (11.5-14.5); WHITE BLOOD COUNT 9.4 X10'3 (4.5-11.0)
[2019-04-24 09:59] VITALS: BP_SYST 100; BP_SYST 143; BP_DIAS 62; BP_DIAS 98
[2019-04-24 11:21] VITALS: BP 107/62
[2019-04-24] MEDS ORDERED: CefTRIAXone/D5W-Rocephin 1gm 50 ML IV ONE (12:00)
--- NOTE | 2019-04-24 12:06 | NUR ---
DM consult: Pt with A1c 9.9. Pt previously admitted with A1c 12.8 and seen by ELSA 10/03/18 for written and verbal DM education with referral to outpatient DM class. Will continue to follow and monitor need for additional f/u DM education. Addendum: 04/24/19 at [address] Amended: Links added.
--- NOTE | 2019-04-24 12:27 | NUR ---
Dr. Olivo paged regarding trop of 0.07. Awaiting callback.
[2019-04-24] MEDS ORDERED: fluconazole 150mg tablet PO ONE (14:20)
--- NOTE | 2019-04-24 14:20 | NUR ---
Informed Dr. Olivo that pt had trop 0.07, temp 100.4, and red groin and under breasts, also is not eating well, and not following commands. MD ordered NS@ 75, fluconazole PO once, nystatin, troponin 6hrs from last trop, and ensure with meals. Will continue to monitor.
[2019-04-24] MEDS ORDERED: nystatin 15 GM powder TP ONE (14:23)
--- NOTE | 2019-04-24 14:24 | NUR ---
F/u: Pt seen by ELSA for written/verbal DM ed w/ RD contact information provided. Pt unable to stay awake during RD visit but was able to communicate she had no DM questions or concerns at this time. Addendum: 04/24/19 at [address] Amended: Links added.
[2019-04-24] MEDS: normal saline 1000ml 1,000 ML IV SCH (14:27)
--- NOTE | 2019-04-24 15:16 | NUR ---
PAGER ID: [phone] MESSAGE: [phone] I noticed there is not a lactic or BC on this patient. Wound you like them ordered. Rhina 3545
--- NOTE | 2019-04-24 15:28 | NUR ---
Patient report given to Rhina HERNANDEZ.
[2019-04-24] MEDS ORDERED: gabapentin 300mg capsule PO SCH (16:00)
--- NOTE | 2019-04-24 17:49 | NUR ---
PAGER ID: [phone] MESSAGE: 353 Chandrika Delong 353 Trop is 0.13, Procalcitonin 8.22, Lactic is pending. Do you want her transferred to tele? Rhina 5850
[2019-04-24] MEDS: NUT.TX.GLUC.INTOLER,LAC-FR,SOY (GLUCERNA) 237 ML PO SCH (18:00)
--- NOTE | 2019-04-24 18:17 | NUR ---
PAGER ID: [phone] MESSAGE: 353 Chandrika Delong Lactic 2.5, do you want a bolus. Rhina 4221
--- NOTE | 2019-04-24 18:30 | NUR ---
Patient in room [facility]. I have received report from Pushpa HERNANDEZ and Rhina HERNANDEZ and had the opportunity to ask questions and assume patient care.
--- NOTE | 2019-04-24 18:42 | NUR ---
Patient in room [facility]. I have received report from Tori HERNANDEZ and had the opportunity to ask questions and assume patient care. Addendum: 04/24/19 at 1844 by Rhina Booth RN Problems reprioritized. Patient report given, questions answered & plan of care reviewed with Tori HERNANDEZ.
[2019-04-24] MEDS: normal saline 1000ml 1,000 ML IVB SCH ×6 (18:53→23:30)
[2019-04-24] MEDS: piperacillin/tazo 3.375gm/50ml 50 ML IV SCH (19:15)
[2019-04-24 20:00] VITALS: BP 119/79
[2019-04-24] MEDS: insulin glargine (Lantus) pen - multi-dose SQ SCH (20:57)
[2019-04-24] MEDS ORDERED: warfarin 5mg tablet PO ONE (21:00)
[2019-04-24] MEDS: gabapentin 300mg capsule PO SCH (21:14)
[2019-04-24] MEDS: pravastatin 40mg tablet PO SCH (21:14)
[2019-04-24] MEDS: ondansetron/PF 4mg/2ml inj IV PRN (22:15)
[2019-04-24] MEDS: nystatin 15 GM powder TP SCH (22:15)
[2019-04-25] VITALS: BP 88/56
[2019-04-25] MEDS: piperacillin/tazo 3.375gm/50ml 50 ML IV SCH ×3 (00:57→20:00)
[2019-04-25] MEDS: LORazepam 1 MG tablet PO PRN (01:18)
[2019-04-25] MEDS: normal saline 1000ml 1,000 ML IV SCH (03:40)
--- NOTE | 2019-04-25 06:13 | NUR ---
Problems reprioritized. Patient report given, questions answered & plan of care reviewed with Katarzyna HERNANDEZ.
[2019-04-25 06:28] LABS: ALBUMIN 2.4 G/DL (3.4-5.0); ANION GAP 14 (8-16); BLOOD UREA NITROGEN 33 MG/DL (7-18); BUN/CREATININE RATIO 13.4 (6.6-38.0); CALCIUM 7.9 MG/DL (8.5-10.1); CHLORIDE 108 MMOL/L (99-107); CREATININE 2.47 MG/DL (0.40-0.90); GLUCOSE 140 MG/DL (70-104); MAGNESIUM 1.4 MG/DL (1.5-2.4); SODIUM 138 MMOL/L (135-145); TOTAL CARBON DIOXIDE 16.3 MMOL/L (24-32); TROPONIN I 0.09 NG/ML (0.0-0.05); eGFR 20 ML/MIN
--- NOTE | 2019-04-25 06:30 | NUR ---
Problems reprioritized. Patient report given, questions answered & plan of care reviewed with Katarzyna HERNANDEZ.
[2019-04-25 07:19] VITALS: BP 97/61
[2019-04-25] MEDS: gabapentin 300mg capsule PO SCH ×2 (07:33→19:16)
[2019-04-25] MEDS: nystatin 15 GM powder TP SCH ×3 (07:33→21:00)
[2019-04-25] MEDS: levoTHYROXINE 125mcg tablet PO SCH (07:33)
[2019-04-25] MEDS: K and/or MAG REPLACEMENT MC SCH ×2 (08:00→20:00)
[2019-04-25] MEDS ORDERED: CefTRIAXone/D5W-Rocephin 1gm 50 ML IV SCH (08:00)
[2019-04-25] MEDS: NUT.TX.GLUC.INTOLER,LAC-FR,SOY (GLUCERNA) 237 ML PO SCH ×4 (08:00→19:15)
[2019-04-25] MEDS: insulin Lispro (HumaLOG) vial - multi-dose SQ SCH ×3 (08:53→19:15)
--- NOTE | 2019-04-25 09:21 | NUR ---
Pt. states incontinence is a new symptom and that she was continent at home. Pt. fails to put longwall headgate operator light or notify staff when she needs to use the restroom. Addendum: 04/25/19 at 0926 by Katarzyna Manzo RN Amended: Links added.
[2019-04-25 09:22] LABS: BASOPHILS # (AUTO) 0.1 X10'3 (0-0.2); BASOPHILS % (AUTO) 0.7 % (0-1); EOSINOPHILS % (AUTO) 0.4 % (0-6); HEMATOCRIT 40.7 % (35.0-45.0); HEMOGLOBIN 13.1 g/dl (12.0-16.0); LYMPHOCYTES # (AUTO) 0.7 X10'3 (1.1-4.8); LYMPHOCYTES % (AUTO) 8.9 % (21-51); MEAN CORPUSCULAR HEMOGLOBIN 30.5 PG (27.0-31.0); MEAN CORPUSCULAR HGB CONC 32.1 g/dL (33.0-36.5); MEAN CORPUSCULAR VOLUME 94.8 FL (78-98); MEAN PLATELET VOLUME 10.3 FL (7.4-10.4); MONOCYTES # (AUTO) 0.3 X10'3 (0-0.9); MONOCYTES % (AUTO) 3.3 % (2-12); NEUTROPHILS # (AUTO) 6.8 X10'3 (1.8-7.7); NEUTROPHILS % (AUTO) 86.7 % (42-75); PLATELET COUNT 199 X10'3 (140-440); RED BLOOD COUNT 4.29 X10'6 (4.20-5.60); WHITE BLOOD COUNT 7.8 X10'3 (4.5-11.0)
--- NOTE | 2019-04-25 09:49 | NUR ---
Pt. c/o 10/28 R hip pain. made aware states to cont. to give Tylenol.
[2019-04-25] MEDS: acetaminophen 325mg tablet PO PRN (09:54)
[2019-04-25 11:16] VITALS: BP 103/50
--- NOTE | 2019-04-25 11:36 | NUR ---
PAGER ID: [phone] MESSAGE: Concerned about Mari Delong in 353 for several reasons. If you can may we have an ETA of your arrival to surgical floor? Thank you Katarzyna [phone]
--- NOTE | 2019-04-25 12:58 | NUR ---
Disscussed LS with crackles, fluid level, medications -lasix and mag. replacement with MD. Discussed kidney function of pt. MD aware of pain in R hip. He would really like pt. to be encouraged to work with physical therapy at this time, but is concerned to prescribe further medications because of kidney function. Fluids have been decreased to 50ml/hr.
--- NOTE | 2019-04-25 16:04 | NUR ---
Pt. refused orthostatic vitals multiple times
[2019-04-25] MEDS ORDERED: sodium bicarbonate (8.4%) inj. 100 MEQ in normal saline 1000ml 1,000 ML IV SCH (17:10)
--- NOTE | 2019-04-25 18:15 | NUR ---
Patient in room [facility]. I have received report from Katarzyna HERNANDEZ and had the opportunity to ask questions and assume patient care.
--- NOTE | 2019-04-25 18:30 | NUR ---
Patient in room [facility]. I have received report from Katarzyna HERNANDEZ and had the opportunity to ask questions and assume patient care.
[2019-04-25] MEDS: lactobacillus rhamnosus 10,000 MMU CELLS/CAPSULE PO SCH (19:16)
[2019-04-25] MEDS: ipratropium/albuterol 3ml nebule NEB SCH ×2 (19:42→23:33)
[2019-04-25 20:00] VITALS: BP 98/69
[2019-04-25] MEDS ORDERED: warfarin 2.5mg tablet PO ONE (21:00)
[2019-04-25] MEDS: pravastatin 40mg tablet PO SCH (21:31)
[2019-04-25] MEDS: insulin glargine (Lantus) pen - multi-dose SQ SCH (21:38)
[2019-04-26] VITALS: BP 86/46
[2019-04-26] MEDS: ipratropium/albuterol 3ml nebule NEB SCH ×6 (03:30→23:50)
--- NOTE | 2019-04-26 06:12 | NUR ---
Problems reprioritized. Patient report given, questions answered & plan of care reviewed with Pushpa HERNANDEZ. Addendum: 04/26/19 at 0617 by Perla Torres RN Report given to Key HERNANDEZ not pushpa HERNANDEZ
--- NOTE | 2019-04-26 06:13 | NUR ---
Problems reprioritized. Patient report given, questions answered & plan of care reviewed with Katarzyna HERNANDEZ. Addendum: 04/26/19 at 0613 by Tori Allen RN report given to Key Colón.
--- NOTE | 2019-04-26 06:55 | NUR ---
Problems reprioritized. Patient report given, questions answered & plan of care reviewed with Key HERNANDEZ.
--- NOTE | 2019-04-26 06:55 | NUR ---
Patient in room [facility]. I have received report from Perla aguirre and Tori HERNANDEZ and had the opportunity to ask questions and assume patient care.
[2019-04-26 07:45] LABS: BASOPHILS # (AUTO) 0.1 X10'3 (0-0.2); BASOPHILS % (AUTO) 1.1 % (0-1); EOSINOPHILS % (AUTO) 0.8 % (0-6); HEMATOCRIT 37.9 % (35.0-45.0); HEMOGLOBIN 12.5 g/dl (12.0-16.0); LYMPHOCYTES # (AUTO) 0.9 X10'3 (1.1-4.8); LYMPHOCYTES % (AUTO) 15.9 % (21-51); MEAN CORPUSCULAR HEMOGLOBIN 30.9 PG (27.0-31.0); MEAN CORPUSCULAR HGB CONC 33.1 g/dL (33.0-36.5); MEAN CORPUSCULAR VOLUME 93.6 FL (78-98); MEAN PLATELET VOLUME 9.8 FL (7.4-10.4); MONOCYTES # (AUTO) 0.3 X10'3 (0-0.9); MONOCYTES % (AUTO) 6.1 % (2-12); NEUTROPHILS # (AUTO) 4.1 X10'3 (1.8-7.7); NEUTROPHILS % (AUTO) 76.1 % (42-75); PLATELET COUNT 185 X10'3 (140-440); RED BLOOD COUNT 4.05 X10'6 (4.20-5.60); RED CELL DISTRIBUTION WIDTH 14.8 % (11.5-14.5); WHITE BLOOD COUNT 5.3 X10'3 (4.5-11.0)
[2019-04-26 08:00] VITALS: BP 121/60
[2019-04-26] MEDS: NUT.TX.GLUC.INTOLER,LAC-FR,SOY (GLUCERNA) 237 ML PO SCH ×3 (08:00→18:00)
[2019-04-26] MEDS: K and/or MAG REPLACEMENT MC SCH ×2 (08:00→20:00)
[2019-04-26 08:12] LABS: ALBUMIN 2.3 G/DL (3.4-5.0); ANION GAP 12 (8-16); BLOOD UREA NITROGEN 46 MG/DL (7-18); BUN/CREATININE RATIO 17.6 (6.6-38.0); CALCIUM 7.7 MG/DL (8.5-10.1); CHLORIDE 106 MMOL/L (99-107); CREATININE 2.61 MG/DL (0.40-0.90); GLUCOSE 133 MG/DL (70-104); MAGNESIUM 1.7 MG/DL (1.5-2.4); POTASSIUM 4.2 MMOL/L (3.5-5.1); SODIUM 133 MMOL/L (135-145); eGFR 18 ML/MIN
[2019-04-26 08:13] LABS: TOTAL CARBON DIOXIDE 14.7 MMOL/L (24-32)
--- NOTE | 2019-04-26 08:44 | NUR ---
PAGER ID: [phone] MESSAGE: CISCO [place]. CRITICAL INR 4.2 AND CO2 14.7. SURGICAL [id number]
[2019-04-26] MEDS: lactobacillus rhamnosus 10,000 MMU CELLS/CAPSULE PO SCH ×2 (10:10→20:30)
[2019-04-26] MEDS: gabapentin 300mg capsule PO SCH ×2 (10:10→20:30)
[2019-04-26] MEDS: nystatin 15 GM powder TP SCH ×3 (10:12→20:31)
[2019-04-26] MEDS: piperacillin/tazo 3.375gm/50ml 50 ML IV SCH ×2 (10:16→23:01)
[2019-04-26] MEDS: insulin Lispro (HumaLOG) vial - multi-dose SQ SCH ×3 (10:25→18:27)
[2019-04-26 11:00] VITALS: BP 102/60
[2019-04-26] MEDS: ondansetron/PF 4mg/2ml inj IV PRN (11:25)
[2019-04-26] MEDS: sodium bicarbonate (8.4%) inj. 100 MEQ in normal saline 1000ml 1,000 ML IV SCH (13:47)
--- NOTE | 2019-04-26 14:59 | NUR ---
Dr Olivo aware patients tele report this am stated patient is running Paced/ SR. Received orders to DC tele
[2019-04-26] MEDS: acetaminophen 325mg tablet PO PRN ×2 (15:42→23:03)
[2019-04-26 18:00] VITALS: BP 90/63
--- NOTE | 2019-04-26 18:49 | NUR ---
Problems reprioritized. Patient report given, questions answered & plan of care reviewed with Greg HERNANDEZ.
[2019-04-26] MEDS: pravastatin 40mg tablet PO SCH (20:30)
[2019-04-26] MEDS: insulin glargine (Lantus) pen - multi-dose SQ SCH (21:51)
[2019-04-26] MEDS: LORazepam 1 MG tablet PO PRN (23:01)
[2019-04-27] VITALS: BP 103/71
[2019-04-27] MEDS: ipratropium/albuterol 3ml nebule NEB SCH ×6 (03:54→23:00)
--- NOTE | 2019-04-27 06:49 | NUR ---
Patient in room [facility] 353. I have received report from Greg HERNANDEZ and had the opportunity to ask questions and assume patient care.
[2019-04-27 08:00] VITALS: BP 108/71
[2019-04-27] MEDS: K and/or MAG REPLACEMENT MC SCH ×2 (08:00→20:00)
[2019-04-27] MEDS: levoTHYROXINE 75mcg tablet PO SCH (08:39)
[2019-04-27] MEDS: piperacillin/tazo 3.375gm/50ml 50 ML IV SCH ×2 (08:39→20:13)
[2019-04-27] MEDS: sodium bicarbonate (8.4%) inj. 100 MEQ in normal saline 1000ml 1,000 ML IV SCH (08:39)
[2019-04-27] MEDS: gabapentin 300mg capsule PO SCH ×2 (08:40→20:07)
[2019-04-27] MEDS: lactobacillus rhamnosus 10,000 MMU CELLS/CAPSULE PO SCH ×2 (08:40→20:07)
[2019-04-27] MEDS: NUT.TX.GLUC.INTOLER,LAC-FR,SOY (GLUCERNA) 237 ML PO SCH ×3 (08:40→18:14)
[2019-04-27] MEDS: nystatin 15 GM powder TP SCH ×3 (08:41→21:45)
[2019-04-27 08:43] LABS: BASOPHILS % (AUTO) 0.7 % (0-1); EOSINOPHILS # (AUTO) 0.1 X10'3 (0-0.9); HEMOGLOBIN 12.5 g/dl (12.0-16.0); LYMPHOCYTES % (AUTO) 16.2 % (21-51); MEAN CORPUSCULAR HEMOGLOBIN 30.7 PG (27.0-31.0); MEAN CORPUSCULAR HGB CONC 32.8 g/dL (33.0-36.5); MEAN CORPUSCULAR VOLUME 93.7 FL (78-98); MEAN PLATELET VOLUME 10.4 FL (7.4-10.4); MONOCYTES # (AUTO) 0.5 X10'3 (0-0.9); MONOCYTES % (AUTO) 7.3 % (2-12); NEUTROPHILS # (AUTO) 4.6 X10'3 (1.8-7.7); NEUTROPHILS % (AUTO) 73.8 % (42-75); PLATELET COUNT 159 X10'3 (140-440); RED BLOOD COUNT 4.05 X10'6 (4.20-5.60); RED CELL DISTRIBUTION WIDTH 15.2 % (11.5-14.5); WHITE BLOOD COUNT 6.2 X10'3 (4.5-11.0)
[2019-04-27 08:54] LABS: ALBUMIN 2.3 G/DL (3.4-5.0); ANION GAP 12 (8-16); BLOOD UREA NITROGEN 50 MG/DL (7-18); BUN/CREATININE RATIO 21.8 (6.6-38.0); CALCIUM 7.9 MG/DL (8.5-10.1); CHLORIDE 105 MMOL/L (99-107); CREATININE 2.29 MG/DL (0.40-0.90); GLUCOSE 86 MG/DL (70-104); MAGNESIUM 1.9 MG/DL (1.5-2.4); POTASSIUM 4.2 MMOL/L (3.5-5.1); SODIUM 136 MMOL/L (135-145); TOTAL CARBON DIOXIDE 19.2 MMOL/L (24-32); eGFR 21 ML/MIN
[2019-04-27] MEDS: magnesium hydroxide 30ml (MOM) UD suspension PO PRN (09:15)
[2019-04-27] MEDS: insulin Lispro (HumaLOG) vial - multi-dose SQ SCH ×3 (09:17→18:50)
[2019-04-27 11:00] VITALS: BP 101/55
[2019-04-27] MEDS: sodium bicarbonate (8.4%) inj. 100 MEQ in sodium chloride 0.45% 1,000 ML IV SCH (15:13)
[2019-04-27 18:00] VITALS: BP 98/60
--- NOTE | 2019-04-27 18:27 | NUR ---
Problems reprioritized. Patient report given, questions answered & plan of care reviewed with Greg HERNANDEZ.
[2019-04-27] MEDS ORDERED: VANCOMYCIN LEVEL IV ONE (18:30)
[2019-04-27] MEDS: acetaminophen 325mg tablet PO PRN (19:47)
[2019-04-27] MEDS: pravastatin 40mg tablet PO SCH (20:08)
[2019-04-27] MEDS ORDERED: warfarin 2.5mg tablet PO ONE (21:00)
[2019-04-27] MEDS: insulin glargine (Lantus) pen - multi-dose SQ SCH (21:44)
[2019-04-28] VITALS: BP 96/57
[2019-04-28] MEDS: LORazepam 1 MG tablet PO PRN ×2 (00:09→19:31)
[2019-04-28] MEDS: ondansetron/PF 4mg/2ml inj IV PRN (00:49)
[2019-04-28] MEDS: ipratropium/albuterol 3ml nebule NEB SCH ×6 (02:36→23:21)
[2019-04-28] MEDS: sodium bicarbonate (8.4%) inj. 100 MEQ in sodium chloride 0.45% 1,000 ML IV SCH ×2 (03:38→19:52)
[2019-04-28 05:32] LABS: ALBUMIN 2.2 G/DL (3.4-5.0); ANION GAP 9 (8-16); BLOOD UREA NITROGEN 48 MG/DL (7-18); CALCIUM 8.1 MG/DL (8.5-10.1); CHLORIDE 104 MMOL/L (99-107); CREATININE 2.09 MG/DL (0.40-0.90); GLUCOSE 134 MG/DL (70-104); POTASSIUM 4.1 MMOL/L (3.5-5.1); SODIUM 137 MMOL/L (135-145); TOTAL CARBON DIOXIDE 23.8 MMOL/L (24-32); eGFR 24 ML/MIN
[2019-04-28 05:53] LABS: BASOPHILS % (AUTO) 0.6 % (0-1); EOSINOPHILS # (AUTO) 0.1 X10'3 (0-0.9); HEMATOCRIT 36.1 % (35.0-45.0); HEMOGLOBIN 12.1 g/dl (12.0-16.0); LYMPHOCYTES # (AUTO) 1.2 X10'3 (1.1-4.8); LYMPHOCYTES % (AUTO) 19.9 % (21-51); MEAN CORPUSCULAR HEMOGLOBIN 30.8 PG (27.0-31.0); MEAN CORPUSCULAR HGB CONC 33.4 g/dL (33.0-36.5); MEAN CORPUSCULAR VOLUME 92.3 FL (78-98); MEAN PLATELET VOLUME 10.5 FL (7.4-10.4); MONOCYTES # (AUTO) 0.5 X10'3 (0-0.9); MONOCYTES % (AUTO) 9.2 % (2-12); NEUTROPHILS % (AUTO) 68.3 % (42-75); PLATELET COUNT 178 X10'3 (140-440); RED BLOOD COUNT 3.91 X10'6 (4.20-5.60); WHITE BLOOD COUNT 5.8 X10'3 (4.5-11.0)
--- NOTE | 2019-04-28 06:17 | NUR ---
Patient in room [facility]. I have received report from Marlen HERNANDEZ and had the opportunity to ask questions and assume patient care.
[2019-04-28 06:57] VITALS: BP 121/62
[2019-04-28] MEDS: lactobacillus rhamnosus 10,000 MMU CELLS/CAPSULE PO SCH ×2 (07:38→19:31)
[2019-04-28] MEDS: gabapentin 300mg capsule PO SCH ×2 (07:38→19:31)
[2019-04-28] MEDS: levoTHYROXINE 75mcg tablet PO SCH (07:38)
[2019-04-28] MEDS: piperacillin/tazo 3.375gm/50ml 50 ML IV SCH ×2 (07:38→19:33)
[2019-04-28] MEDS: NUT.TX.GLUC.INTOLER,LAC-FR,SOY (GLUCERNA) 237 ML PO SCH ×3 (07:59→18:00)
[2019-04-28] MEDS: nystatin 15 GM powder TP SCH ×4 (08:00→21:42)
[2019-04-28] MEDS: K and/or MAG REPLACEMENT MC SCH ×2 (08:00→19:50)
[2019-04-28] MEDS: insulin Lispro (HumaLOG) vial - multi-dose SQ SCH ×3 (08:14→18:35)
--- NOTE | 2019-04-28 09:43 | NUR ---
2742 received call from micro: , blood cltx L arm, drawn 04/24 @ 1702 aerobic, shows budding yeast. Dr white. orders PRN
[2019-04-28] MEDS ORDERED: fluconazole-Diflucan 100MG/NS 50 ML IV SCH (10:25)
[2019-04-28 11:00] VITALS: BP 99/72
[2019-04-28 11:22] VITALS: BP 99/72
[2019-04-28] MEDS: micafungin inj 100 MG in normal saline 100ml IV soln 100 ML IV SCH (13:18)
[2019-04-28 18:00] VITALS: BP 116/89
--- NOTE | 2019-04-28 18:46 | NUR ---
Problems reprioritized. Patient report given, questions answered & plan of care reviewed with Prudence RN.
--- NOTE | 2019-04-28 18:53 | NUR ---
Patient in room [facility] 353. I have received report from ELDA HERNANDEZ and had the opportunity to ask questions and assume patient care.
[2019-04-28] MEDS: insulin glargine (Lantus) pen - multi-dose SQ SCH (21:00)
[2019-04-28] MEDS ORDERED: warfarin 2.5mg tablet PO ONE (21:00)
[2019-04-28] MEDS: pravastatin 40mg tablet PO SCH (21:41)
[2019-04-29] VITALS: BP 110/70
[2019-04-29] MEDS: LORazepam 1 MG tablet PO PRN ×2 (02:34→19:39)
[2019-04-29] MEDS: acetaminophen 325mg tablet PO PRN ×2 (02:34→19:39)
[2019-04-29] MEDS: ipratropium/albuterol 3ml nebule NEB SCH ×6 (03:32→22:41)
[2019-04-29 05:29] LABS: ALBUMIN 2.3 G/DL (3.4-5.0); ANION GAP 9 (8-16); BLOOD UREA NITROGEN 40 MG/DL (7-18); BUN/CREATININE RATIO 24.8 (6.6-38.0); CALCIUM 8.4 MG/DL (8.5-10.1); CHLORIDE 101 MMOL/L (99-107); CREATININE 1.61 MG/DL (0.40-0.90); GLUCOSE 128 MG/DL (70-104); POTASSIUM 4.9 MMOL/L (3.5-5.1); SODIUM 135 MMOL/L (135-145); TOTAL CARBON DIOXIDE 25.3 MMOL/L (24-32); eGFR 32 ML/MIN
[2019-04-29 05:33] LABS: BASOPHILS % (AUTO) 0.4 % (0-1); EOSINOPHILS # (AUTO) 0.1 X10'3 (0-0.9); EOSINOPHILS % (AUTO) 1.3 % (0-6); HEMATOCRIT 36.4 % (35.0-45.0); HEMOGLOBIN 12.1 g/dl (12.0-16.0); LYMPHOCYTES # (AUTO) 1.4 X10'3 (1.1-4.8); MEAN CORPUSCULAR HGB CONC 33.3 g/dL (33.0-36.5); MEAN CORPUSCULAR VOLUME 93.2 FL (78-98); MEAN PLATELET VOLUME 10.5 FL (7.4-10.4); MONOCYTES # (AUTO) 0.7 X10'3 (0-0.9); MONOCYTES % (AUTO) 10.5 % (2-12); NEUTROPHILS # (AUTO) 4.1 X10'3 (1.8-7.7); NEUTROPHILS % (AUTO) 65.8 % (42-75); PLATELET COUNT 179 X10'3 (140-440); RED CELL DISTRIBUTION WIDTH 15.1 % (11.5-14.5); WHITE BLOOD COUNT 6.2 X10'3 (4.5-11.0)
--- NOTE | 2019-04-29 06:18 | NUR ---
Problems reprioritized. Patient report given, questions answered & plan of care reviewed with Rhina HERNANDEZ.
--- NOTE | 2019-04-29 06:42 | NUR ---
Patient in room [facility]. I have received report from Marlen HERNANDEZ and had the opportunity to ask questions and assume patient care.
[2019-04-29] MEDS: K and/or MAG REPLACEMENT MC SCH ×2 (06:57→20:00)
[2019-04-29 07:11] VITALS: BP 126/85
[2019-04-29] MEDS: sodium bicarbonate (8.4%) inj. 100 MEQ in sodium chloride 0.45% 1,000 ML IV SCH (07:15)
[2019-04-29] MEDS: micafungin inj 100 MG in normal saline 100ml IV soln 100 ML IV SCH (07:26)
[2019-04-29] MEDS: gabapentin 300mg capsule PO SCH ×2 (07:29→19:37)
[2019-04-29] MEDS: lactobacillus rhamnosus 10,000 MMU CELLS/CAPSULE PO SCH ×2 (07:29→19:37)
[2019-04-29] MEDS: levoTHYROXINE 75mcg tablet PO SCH (07:30)
[2019-04-29] MEDS: nystatin 15 GM powder TP SCH ×3 (07:30→21:18)
[2019-04-29] MEDS: NUT.TX.GLUC.INTOLER,LAC-FR,SOY (GLUCERNA) 237 ML PO SCH ×3 (08:00→19:37)
[2019-04-29] MEDS: insulin Lispro (HumaLOG) vial - multi-dose SQ SCH ×3 (08:32→18:36)
[2019-04-29] MEDS: piperacillin/tazo 3.375gm/50ml 50 ML IV SCH ×2 (10:51→19:40)
[2019-04-29] MEDS: normal saline 1000ml 1,000 ML IV SCH (10:58)
[2019-04-29 12:00] VITALS: BP 139/87
[2019-04-29 15:20] VITALS: BP 147/76
--- NOTE | 2019-04-29 15:51 | NUR ---
Initial: Pt admit w/ sepsis secondary to UTI and possible type II RI from demand ischemia per MD note. PO 25-50% avg meals fluctuating this admit and AOx3 today. Pt declined Glucerna at lunch today w/ 100% PO of ONS prior. LBM 2/7. 13kg wt gain past 3 days w/ over 6L positive fluid balance. Will continue to monitor for additional protein needs. Rec: 1. continue carb controlled diet; encourage PO 2. Glucerna TIDWM per MD 3. bowel care as needed 4. weekly wts Addendum: 04/29/19 at [address] Amended: Links added.
--- NOTE | 2019-04-29 17:30 | NUR ---
PAGER ID: [phone] MESSAGE: [id number] needs a breathing treatment but doesn't have PRNs, can I get an order for a PRN RT tx? Rhina 7228
[2019-04-29] MEDS ORDERED: ipratropium/albuterol 3ml nebule NEB PRN (17:50)
--- NOTE | 2019-04-29 17:51 | NUR ---
RT paged for PRN treatment for SOB. New order obtained from and placed.
--- NOTE | 2019-04-29 18:00 | NUR ---
Patient in room [facility]. I have received report from Rhina HERNANDEZ and had the opportunity to ask questions and assume patient care.
[2019-04-29 20:00] VITALS: BP 118/74
[2019-04-29] MEDS: insulin glargine (Lantus) pen - multi-dose SQ SCH (20:55)
[2019-04-29] MEDS ORDERED: warfarin 5mg tablet PO ONE (21:00)
[2019-04-29] MEDS: pravastatin 40mg tablet PO SCH (21:12)
[2019-04-30] VITALS: BP 102/67
[2019-04-30] MEDS: ipratropium/albuterol 3ml nebule NEB SCH ×6 (04:29→23:00)
[2019-04-30] MEDS: LORazepam 1 MG tablet PO PRN ×3 (04:38→22:31)
[2019-04-30] MEDS: acetaminophen 325mg tablet PO PRN ×3 (04:41→22:31)
[2019-04-30] MEDS: normal saline 1000ml 1,000 ML IV SCH (04:46)
--- NOTE | 2019-04-30 06:28 | NUR ---
Problems reprioritized. Patient report given, questions answered & plan of care reviewed with Maia HERNANDEZ.
--- NOTE | 2019-04-30 06:33 | NUR ---
Patient in room [facility] 353. I have received report from DAVID PASTOR and had the opportunity to ask questions and assume patient care.
[2019-04-30 07:00] VITALS: BP 134/91
[2019-04-30] MEDS: lactobacillus rhamnosus 10,000 MMU CELLS/CAPSULE PO SCH ×2 (07:31→20:23)
[2019-04-30] MEDS: levoTHYROXINE 75mcg tablet PO SCH (07:31)
[2019-04-30] MEDS: piperacillin/tazo 3.375gm/50ml 50 ML IV SCH ×2 (07:31→20:26)
[2019-04-30] MEDS: gabapentin 300mg capsule PO SCH ×2 (07:31→20:23)
[2019-04-30] MEDS: nystatin 15 GM powder TP SCH ×3 (07:33→22:35)
[2019-04-30] MEDS: NUT.TX.GLUC.INTOLER,LAC-FR,SOY (GLUCERNA) 237 ML PO SCH ×4 (07:38→20:35)
[2019-04-30] MEDS: K and/or MAG REPLACEMENT MC SCH ×2 (08:00→20:00)
[2019-04-30] MEDS: insulin Lispro (HumaLOG) vial - multi-dose SQ SCH ×2 (09:35→18:48)
[2019-04-30 11:00] VITALS: BP 146/86
[2019-04-30] MEDS: micafungin inj 100 MG in normal saline 100ml IV soln 100 ML IV SCH (13:56)
--- NOTE | 2019-04-30 18:26 | NUR ---
Patient in room [facility]. I have received report from Maia HERNANDEZ and had the opportunity to ask questions and assume patient care.
--- NOTE | 2019-04-30 19:09 | NUR ---
Problems reprioritized. Patient report given, questions answered & plan of care reviewed with DAVID PASTOR.
[2019-04-30 20:00] VITALS: BP 98/75
[2019-04-30] MEDS: pravastatin 40mg tablet PO SCH (20:22)
[2019-04-30] MEDS ORDERED: warfarin 7.5mg tablet PO ONE (21:00)
[2019-04-30] MEDS: insulin glargine (Lantus) pen - multi-dose SQ SCH (21:40)
[2019-05-01] VITALS: BP_SYST 127; BP_SYST 139; BP_DIAS 76; BP_DIAS 82
[2019-05-01] MEDS: normal saline 1000ml 1,000 ML IV SCH (02:46)
[2019-05-01] MEDS: ipratropium/albuterol 3ml nebule NEB SCH ×6 (03:00→22:23)
--- NOTE | 2019-05-01 06:27 | NUR ---
Problems reprioritized. Patient report given, questions answered & plan of care reviewed with Lesley HERNANDEZ.
[2019-05-01 08:00] VITALS: BP 107/76
[2019-05-01] MEDS: K and/or MAG REPLACEMENT MC SCH ×2 (08:00→20:00)
[2019-05-01] MEDS: levoTHYROXINE 75mcg tablet PO SCH (09:51)
[2019-05-01] MEDS: nystatin 15 GM powder TP SCH ×3 (09:51→23:21)
[2019-05-01] MEDS: lactobacillus rhamnosus 10,000 MMU CELLS/CAPSULE PO SCH ×2 (09:51→19:26)
[2019-05-01] MEDS: gabapentin 300mg capsule PO SCH ×2 (09:51→19:26)
[2019-05-01] MEDS: micafungin inj 100 MG in normal saline 100ml IV soln 100 ML IV SCH (09:52)
[2019-05-01] MEDS: piperacillin/tazo 3.375gm/50ml 50 ML IV SCH (09:53)
[2019-05-01 11:00] VITALS: BP 163/109
[2019-05-01] MEDS: NUT.TX.GLUC.INTOLER,LAC-FR,SOY (GLUCERNA) 237 ML PO SCH ×2 (13:00→19:27)
[2019-05-01] MEDS: insulin Lispro (HumaLOG) vial - multi-dose SQ SCH ×2 (13:26→19:41)
[2019-05-01] MEDS: magnesium hydroxide 30ml (MOM) UD suspension PO PRN (16:07)
--- NOTE | 2019-05-01 18:00 | NUR ---
Patient in room [facility]. I have received report from Lesley HERNANDEZ and had the opportunity to ask questions and assume patient care.
--- NOTE | 2019-05-01 18:39 | NUR ---
Problems reprioritized. Patient report given, questions answered & plan of care reviewed with Perla HERNANDEZ.
[2019-05-01 20:00] VITALS: BP 111/82
[2019-05-01] MEDS: LORazepam 1 MG tablet PO PRN (20:35)
--- NOTE | 2019-05-01 20:36 | NUR ---
ativan package was torn, would not scan
[2019-05-01] MEDS ORDERED: warfarin 5mg tablet PO ONE (21:00)
[2019-05-01] MEDS: ondansetron/PF 4mg/2ml inj IV PRN (21:35)
[2019-05-01] MEDS: insulin glargine (Lantus) pen - multi-dose SQ SCH (21:59)
[2019-05-01] MEDS: pravastatin 40mg tablet PO SCH (23:00)
[2019-05-02] MEDS: ipratropium/albuterol 3ml nebule NEB SCH ×6 (02:36→23:43)
--- NOTE | 2019-05-02 06:30 | NUR ---
Problems reprioritized. Patient report given, questions answered & plan of care reviewed with Chad RN.
--- NOTE | 2019-05-02 06:30 | NUR ---
Patient in room [facility]. I have received report from DARBY HERNANDEZ and had the opportunity to ask questions and assume patient care.
[2019-05-02 06:33] LABS: BASOPHILS % (AUTO) 0.8 % (0-1); EOSINOPHILS # (AUTO) 0.1 X10'3 (0-0.9); EOSINOPHILS % (AUTO) 1.8 % (0-6); HEMATOCRIT 37.9 % (35.0-45.0); HEMOGLOBIN 12.3 g/dl (12.0-16.0); LYMPHOCYTES # (AUTO) 1.7 X10'3 (1.1-4.8); LYMPHOCYTES % (AUTO) 26.5 % (21-51); MEAN CORPUSCULAR HEMOGLOBIN 30.6 PG (27.0-31.0); MEAN CORPUSCULAR HGB CONC 32.4 g/dL (33.0-36.5); MEAN CORPUSCULAR VOLUME 94.4 FL (78-98); MEAN PLATELET VOLUME 9.5 FL (7.4-10.4); MONOCYTES # (AUTO) 0.6 X10'3 (0-0.9); MONOCYTES % (AUTO) 9.1 % (2-12); NEUTROPHILS % (AUTO) 61.8 % (42-75); PLATELET COUNT 283 X10'3 (140-440); RED BLOOD COUNT 4.02 X10'6 (4.20-5.60); RED CELL DISTRIBUTION WIDTH 14.8 % (11.5-14.5); WHITE BLOOD COUNT 6.5 X10'3 (4.5-11.0)
[2019-05-02 07:03] VITALS: BP 133/79
[2019-05-02] MEDS: K and/or MAG REPLACEMENT MC SCH ×2 (08:00→20:00)
[2019-05-02] MEDS: NUT.TX.GLUC.INTOLER,LAC-FR,SOY (GLUCERNA) 237 ML PO SCH ×3 (08:00→18:15)
--- NOTE | 2019-05-02 08:32 | NUR ---
Patient asleep and requested not to be awaken for SVN tx. No shortness of breath noted. rt busy in er pt sleeping comfortably when checked on at 0830 NAD Addendum: 05/02/19 at 0834 by Bhavana Gifford RT Amended: Links added.
[2019-05-02] MEDS: micafungin inj 100 MG in normal saline 100ml IV soln 100 ML IV SCH (09:19)
[2019-05-02] MEDS: gabapentin 300mg capsule PO SCH ×2 (09:22→21:25)
[2019-05-02] MEDS: lactobacillus rhamnosus 10,000 MMU CELLS/CAPSULE PO SCH ×2 (09:22→21:25)
[2019-05-02] MEDS: levoTHYROXINE 75mcg tablet PO SCH (09:23)
[2019-05-02] MEDS: insulin Lispro (HumaLOG) vial - multi-dose SQ SCH (09:31)
[2019-05-02] MEDS: nystatin 15 GM powder TP SCH ×3 (09:36→21:24)
[2019-05-02 11:00] VITALS: BP 125/84
--- NOTE | 2019-05-02 14:07 | NUR ---
Reassessment: Patient's blood culture became positive for budding yeast/angélica glabrata per MD notes. Pt continues with average 25-50% PO intake not meeting nutrient needs. Pt documented to have refused three ONS however overall with 100% PO intake of ONS, still not meeting nutrient needs for ABW. Pt seen at bedside. Pt confirms low appetite. RD encouraged PO intake and provided pt with alternative CHO controlled menu to provide additional food options. Attempted to obtain food preferences however pt fell asleep during RD interview. Lunch tray and Glucerna visible at bedside noted to be 0% consumed. Per bedside RN pt sleeps through meals often. RD contact information left at patient's bedside. LBM 05/01. Will continue to follow closely. Rec: 1. continue carb controlled diet; encourage PO 2. Glucerna TIDWM per MD 3. bowel care as needed 4. weekly wts Addendum: 05/02/19 at [address] Amended: Links added.
[2019-05-02 18:00] VITALS: BP 116/69
--- NOTE | 2019-05-02 18:30 | NUR ---
Problems reprioritized. Patient report given, questions answered & plan of care reviewed with Idalia HERNANDEZ.
--- NOTE | 2019-05-02 18:44 | NUR ---
Patient in room [facility]. I have received report from DAVID Bonilla and had the opportunity to ask questions and assume patient care.
[2019-05-02] MEDS: pravastatin 40mg tablet PO SCH (21:24)
[2019-05-02] MEDS: insulin glargine (Lantus) pen - multi-dose SQ SCH (21:34)
[2019-05-03] VITALS: BP 138/74
[2019-05-03] MEDS: ipratropium/albuterol 3ml nebule NEB SCH ×5 (03:06→23:25)
[2019-05-03] MEDS: LORazepam 1 MG tablet PO PRN ×2 (03:16→20:18)
--- NOTE | 2019-05-03 06:09 | NUR ---
Problems reprioritized. Patient report given, questions answered & plan of care reviewed with Chad RN.
--- NOTE | 2019-05-03 06:39 | NUR ---
Problems reprioritized. Patient report given, questions answered & plan of care reviewed with DAVID Carvalho.
[2019-05-03 08:00] VITALS: BP 134/73
[2019-05-03] MEDS: K and/or MAG REPLACEMENT MC SCH ×2 (08:00→20:00)
[2019-05-03] MEDS: lactobacillus rhamnosus 10,000 MMU CELLS/CAPSULE PO SCH ×2 (08:45→20:18)
[2019-05-03] MEDS: gabapentin 300mg capsule PO SCH ×2 (08:45→20:18)
[2019-05-03] MEDS: micafungin inj 100 MG in normal saline 100ml IV soln 100 ML IV SCH (08:45)
[2019-05-03] MEDS: levoTHYROXINE 75mcg tablet PO SCH (08:45)
[2019-05-03] MEDS: nystatin 15 GM powder TP SCH ×3 (08:46→21:00)
[2019-05-03] MEDS: NUT.TX.GLUC.INTOLER,LAC-FR,SOY (GLUCERNA) 237 ML PO SCH ×3 (08:51→18:01)
[2019-05-03] MEDS: insulin Lispro (HumaLOG) vial - multi-dose SQ SCH (08:58)
[2019-05-03] MEDS: normal saline 1000ml 1,000 ML IV SCH (11:45)
[2019-05-03 12:00] VITALS: BP 128/89
[2019-05-03 13:15] LABS: BASOPHILS # (AUTO) 0.1 X10'3 (0-0.2); BASOPHILS % (AUTO) 1.2 % (0-1); EOSINOPHILS # (AUTO) 0.1 X10'3 (0-0.9); EOSINOPHILS % (AUTO) 1.9 % (0-6); LYMPHOCYTES # (AUTO) 1.1 X10'3 (1.1-4.8); MEAN CORPUSCULAR HEMOGLOBIN 30.5 PG (27.0-31.0); MEAN CORPUSCULAR HGB CONC 32.4 g/dL (33.0-36.5); MEAN CORPUSCULAR VOLUME 94.2 FL (78-98); MEAN PLATELET VOLUME 8.6 FL (7.4-10.4); MONOCYTES # (AUTO) 0.6 X10'3 (0-0.9); MONOCYTES % (AUTO) 9.8 % (2-12); NEUTROPHILS # (AUTO) 3.8 X10'3 (1.8-7.7); NEUTROPHILS % (AUTO) 67.1 % (42-75); PLATELET COUNT 318 X10'3 (140-440); RED BLOOD COUNT 3.93 X10'6 (4.20-5.60); RED CELL DISTRIBUTION WIDTH 15.7 % (11.5-14.5); WHITE BLOOD COUNT 5.7 X10'3 (4.5-11.0)
[2019-05-03 13:41] LABS: ALANINE AMINOTRANSFERASE 189 U/L (12-78); ALBUMIN 2.4 G/DL (3.4-5.0); ALBUMIN/GLOBULIN RATIO 0.6 (1.1-1.5); ALKALINE PHOSPHATASE 562 IU/L (46-116); ANION GAP 9 (8-16); ASPARTATE AMINO TRANSFERASE 256 U/L (10-37); BILIRUBIN,TOTAL 0.7 MG/DL (0.1-1.0); BLOOD UREA NITROGEN 31 MG/DL (7-18); CHLORIDE 106 MMOL/L (99-107); CREATININE 1.41 MG/DL (0.40-0.90); GLUCOSE 96 MG/DL (70-104); POTASSIUM 5.1 MMOL/L (3.5-5.1); SODIUM 138 MMOL/L (135-145); TOTAL CARBON DIOXIDE 23.3 MMOL/L (24-32); TOTAL PROTEIN 6.2 G/DL (6.4-8.2); eGFR 37 ML/MIN
--- NOTE | 2019-05-03 14:06 | NUR ---
patient feel on floor nurses assist to get in bed sao2 94% on 4lpm o2 hr86 bs clear no intervention
--- NOTE | 2019-05-03 14:11 | NUR ---
patient passes out feel on floor and put back in bed and woke up sa02 94% hr 86 bs clear Addendum: 05/03/19 at 1415 by Lolis Anne RT Amended: Links added.
[2019-05-03 18:00] VITALS: BP 106/67
--- NOTE | 2019-05-03 18:30 | NUR ---
Problems reprioritized. Patient report given, questions answered & plan of care reviewed with Quincy HERNANDEZ.
[2019-05-03] MEDS: pravastatin 40mg tablet PO SCH (20:18)
[2019-05-03] MEDS: insulin glargine (Lantus) pen - multi-dose SQ SCH (21:00)
[2019-05-04] VITALS: BP 119/73
[2019-05-04] MEDS: ipratropium/albuterol 3ml nebule NEB SCH ×6 (03:14→23:19)
[2019-05-04] MEDS: LORazepam 1 MG tablet PO PRN (04:53)
--- NOTE | 2019-05-04 06:20 | NUR ---
Patient in room [facility]. I have received report from DAVID Mathew and had the opportunity to ask questions and assume patient care.
[2019-05-04 06:30] VITALS: BP 141/89
[2019-05-04] MEDS: NUT.TX.GLUC.INTOLER,LAC-FR,SOY (GLUCERNA) 237 ML PO SCH ×3 (08:00→18:00)
[2019-05-04 08:33] LABS: BASOPHILS # (AUTO) 0.1 X10'3 (0-0.2); EOSINOPHILS # (AUTO) 0.1 X10'3 (0-0.9); HEMATOCRIT 39.8 % (35.0-45.0); HEMOGLOBIN 12.8 g/dl (12.0-16.0); LYMPHOCYTES % (AUTO) 19.2 % (21-51); MEAN CORPUSCULAR HEMOGLOBIN 30.6 PG (27.0-31.0); MEAN CORPUSCULAR HGB CONC 32.3 g/dL (33.0-36.5); MEAN CORPUSCULAR VOLUME 94.9 FL (78-98); MEAN PLATELET VOLUME 8.8 FL (7.4-10.4); MONOCYTES # (AUTO) 0.6 X10'3 (0-0.9); MONOCYTES % (AUTO) 10.6 % (2-12); NEUTROPHILS # (AUTO) 3.6 X10'3 (1.8-7.7); NEUTROPHILS % (AUTO) 67.2 % (42-75); PLATELET COUNT 293 X10'3 (140-440); RED BLOOD COUNT 4.19 X10'6 (4.20-5.60); RED CELL DISTRIBUTION WIDTH 15.9 % (11.5-14.5); WHITE BLOOD COUNT 5.3 X10'3 (4.5-11.0)
[2019-05-04 08:40] LABS: ALBUMIN 2.5 G/DL (3.4-5.0); ANION GAP 9 (8-16); BLOOD UREA NITROGEN 31 MG/DL (7-18); BUN/CREATININE RATIO 20.8 (6.6-38.0); CALCIUM 8.9 MG/DL (8.5-10.1); CHLORIDE 105 MMOL/L (99-107); CREATININE 1.49 MG/DL (0.40-0.90); GLUCOSE 120 MG/DL (70-104); POTASSIUM 5.7 MMOL/L (3.5-5.1); SODIUM 139 MMOL/L (135-145); TOTAL CARBON DIOXIDE 24.6 MMOL/L (24-32); eGFR 35 ML/MIN
[2019-05-04] MEDS: K and/or MAG REPLACEMENT MC SCH ×2 (09:10→20:00)
[2019-05-04] MEDS: levoTHYROXINE 75mcg tablet PO SCH (09:31)
[2019-05-04] MEDS: nystatin 15 GM powder TP SCH ×3 (09:31→20:25)
[2019-05-04] MEDS: gabapentin 300mg capsule PO SCH ×2 (09:31→20:25)
[2019-05-04] MEDS: micafungin inj 100 MG in normal saline 100ml IV soln 100 ML IV SCH (09:31)
[2019-05-04] MEDS: lactobacillus rhamnosus 10,000 MMU CELLS/CAPSULE PO SCH ×2 (09:31→20:25)
[2019-05-04 11:00] VITALS: BP 138/87
[2019-05-04] MEDS ORDERED: sodium polystyrene sulfonate 15gm/60ml oral suspension PO ONE (16:25)
[2019-05-04 18:00] VITALS: BP 135/93
--- NOTE | 2019-05-04 18:10 | NUR ---
Problems reprioritized. Patient report given, questions answered & plan of care reviewed with DAVID Mathew.
[2019-05-04] MEDS: lactulose 20gm/30ml cup PO SCH (20:25)
[2019-05-04] MEDS: rifaximin 550mg tablet PO SCH (20:25)
[2019-05-04] MEDS: pravastatin 40mg tablet PO SCH (20:25)
[2019-05-04] MEDS: insulin glargine (Lantus) pen - multi-dose SQ SCH (22:14)
[2019-05-05] VITALS: BP 141/72
[2019-05-05] MEDS: lactulose 20gm/30ml cup PO SCH ×3 (02:00→15:24)
[2019-05-05] MEDS: ipratropium/albuterol 3ml nebule NEB SCH ×6 (02:53→23:12)
[2019-05-05 05:24] LABS: EOSINOPHILS # (AUTO) 0.1 X10'3 (0-0.9); EOSINOPHILS % (AUTO) 2.3 % (0-6); HEMATOCRIT 37.5 % (35.0-45.0); HEMOGLOBIN 12.2 g/dl (12.0-16.0); LYMPHOCYTES # (AUTO) 1.1 X10'3 (1.1-4.8); LYMPHOCYTES % (AUTO) 23.4 % (21-51); MEAN CORPUSCULAR HEMOGLOBIN 30.7 PG (27.0-31.0); MEAN CORPUSCULAR HGB CONC 32.5 g/dL (33.0-36.5); MEAN CORPUSCULAR VOLUME 94.5 FL (78-98); MEAN PLATELET VOLUME 8.9 FL (7.4-10.4); MONOCYTES # (AUTO) 0.5 X10'3 (0-0.9); MONOCYTES % (AUTO) 11.3 % (2-12); PLATELET COUNT 301 X10'3 (140-440); RED BLOOD COUNT 3.97 X10'6 (4.20-5.60); RED CELL DISTRIBUTION WIDTH 15.7 % (11.5-14.5); WHITE BLOOD COUNT 4.8 X10'3 (4.5-11.0)
[2019-05-05 05:34] LABS: ALANINE AMINOTRANSFERASE 127 U/L (12-78); ALBUMIN 2.4 G/DL (3.4-5.0); ALBUMIN/GLOBULIN RATIO 0.6 (1.1-1.5); ALKALINE PHOSPHATASE 563 IU/L (46-116); ANION GAP 6 (8-16); ASPARTATE AMINO TRANSFERASE 107 U/L (10-37); BILIRUBIN,TOTAL 0.9 MG/DL (0.1-1.0); BLOOD UREA NITROGEN 30 MG/DL (7-18); BUN/CREATININE RATIO 20.3 (6.6-38.0); CALCIUM 8.7 MG/DL (8.5-10.1); CHLORIDE 106 MMOL/L (99-107); CREATININE 1.48 MG/DL (0.40-0.90); GLUCOSE 191 MG/DL (70-104); MAGNESIUM 1.8 MG/DL (1.5-2.4); PHOSPHORUS 4.3 MG/DL (2.3-4.5); POTASSIUM 5.2 MMOL/L (3.5-5.1); SODIUM 140 MMOL/L (135-145); TOTAL CARBON DIOXIDE 27.7 MMOL/L (24-32); TOTAL PROTEIN 6.2 G/DL (6.4-8.2); eGFR 35 ML/MIN
--- NOTE | 2019-05-05 06:10 | NUR ---
Patient in room [facility]. I have received report from DAVID Mathew and had the opportunity to ask questions and assume patient care.
--- NOTE | 2019-05-05 06:15 | NUR ---
Problems reprioritized. Patient report given, questions answered & plan of care reviewed with DAVID Mathew.
[2019-05-05 06:30] VITALS: BP 133/77
[2019-05-05] MEDS: K and/or MAG REPLACEMENT MC SCH ×2 (06:46→20:00)
[2019-05-05] MEDS: lactobacillus rhamnosus 10,000 MMU CELLS/CAPSULE PO SCH ×2 (08:35→20:11)
[2019-05-05] MEDS: levoTHYROXINE 75mcg tablet PO SCH (08:35)
[2019-05-05] MEDS: gabapentin 300mg capsule PO SCH ×2 (08:35→20:11)
[2019-05-05] MEDS: rifaximin 550mg tablet PO SCH (08:36)
[2019-05-05] MEDS: nystatin 15 GM powder TP SCH ×3 (08:37→20:18)
[2019-05-05] MEDS: micafungin inj 100 MG in normal saline 100ml IV soln 100 ML IV SCH (08:37)
[2019-05-05] MEDS: NUT.TX.GLUC.INTOLER,LAC-FR,SOY (GLUCERNA) 237 ML PO SCH ×3 (08:37→18:04)
[2019-05-05] MEDS: insulin Lispro (HumaLOG) vial - multi-dose SQ SCH (08:50)
[2019-05-05] MEDS ORDERED: phytonadione inj. 10 MG in normal saline 100ml IV soln 99 ML IV ONE (10:45)
[2019-05-05] MEDS: normal saline 1000ml 1,000 ML IV SCH (10:51)
[2019-05-05 11:00] VITALS: BP 110/78
[2019-05-05] MEDS: ondansetron/PF 4mg/2ml inj IV PRN (12:10)
--- NOTE | 2019-05-05 16:35 | NUR ---
Reassessment: Patient's PO intake continues to fluctuate. Pt documented to have refused breakfast and lunch yesterday however up to 75-100% at dinner with 100% PO intake at breakfast today. Pt documented to have refused lunch today. PO intake of ONS fluctuates however documented with 0% PO intake x 2 most recent with 100% consumed with dinner last night. Pt seen at bedside. Glucerna at bedside noted to be about 50% consumed. Food preferences were obtained and d/w dietary, see below. RD discussed feeding tube for alternate nutrition given concern for poor PO intake for an extended duration. Pt states she would not want a feeding tube at this time. RD encouraged PO intake of meals for strength and meeting nutrient needs. Pt verbalized understanding. Pt now stating she dislikes the ONS however agrees to continue to receive them so long as she gets a cup of ice with it. LBM 05/05. Pt now receiving routine Lactulose given elevated LFTs per MD notes. Will continue to follow closely. Rec: 1. continue carb controlled diet; encourage PO 2. Glucerna TIDWM with a cup of ice 3. No peas, fish, scrambled or hard boiled eggs; [place] yogurt BIDBL 4. bowel care as needed 5. weekly wts Addendum: 05/05/19 at [address] Amended: Links added.
[2019-05-05 18:00] VITALS: BP 102/57
[2019-05-05] MEDS: lisinopril 10 MG tablet PO SCH (18:15)
[2019-05-05] MEDS ORDERED: sodium polystyrene sulfonate 15gm/60ml oral suspension PO ONE (18:45)
--- NOTE | 2019-05-05 18:48 | NUR ---
Paged Dr Olivo to ensure he wants spironolactone given despite K+ this AM=5.2. states to give the spironolactone as RX'd.
[2019-05-05] MEDS: carVEDilol 3.125mg tablet PO SCH (20:00)
[2019-05-05] MEDS: pravastatin 40mg tablet PO SCH (20:11)
[2019-05-05] MEDS: spironolactone 25 MG tablet PO SCH (20:11)
[2019-05-05] MEDS: insulin glargine (Lantus) pen - multi-dose SQ SCH (21:00)
[2019-05-06] VITALS: BP 127/74
[2019-05-06] MEDS: lactulose 20gm/30ml cup PO SCH ×2 (00:25→08:32)
[2019-05-06] MEDS: ipratropium/albuterol 3ml nebule NEB SCH ×6 (03:04→22:51)
--- NOTE | 2019-05-06 06:15 | NUR ---
Patient in room [facility]. I have received report from DAVID Mathew and had the opportunity to ask questions and assume patient care.
[2019-05-06 06:16] LABS: BASOPHILS # (AUTO) 0.1 X10'3 (0-0.2); BASOPHILS % (AUTO) 0.8 % (0-1); EOSINOPHILS # (AUTO) 0.1 X10'3 (0-0.9); EOSINOPHILS % (AUTO) 0.7 % (0-6); HEMATOCRIT 38.7 % (35.0-45.0); HEMOGLOBIN 12.6 g/dl (12.0-16.0); LYMPHOCYTES # (AUTO) 0.5 X10'3 (1.1-4.8); MEAN CORPUSCULAR HEMOGLOBIN 31.3 PG (27.0-31.0); MEAN CORPUSCULAR HGB CONC 32.6 g/dL (33.0-36.5); MONOCYTES # (AUTO) 0.4 X10'3 (0-0.9); NEUTROPHILS # (AUTO) 7.6 X10'3 (1.8-7.7); NEUTROPHILS % (AUTO) 87.5 % (42-75); PLATELET COUNT 272 X10'3 (140-440); RED BLOOD COUNT 4.03 X10'6 (4.20-5.60); RED CELL DISTRIBUTION WIDTH 16.1 % (11.5-14.5); WHITE BLOOD COUNT 8.7 X10'3 (4.5-11.0)
[2019-05-06 06:30] VITALS: BP 111/71
[2019-05-06 06:37] LABS: ALANINE AMINOTRANSFERASE 105 U/L (12-78); ALBUMIN 2.4 G/DL (3.4-5.0); ALBUMIN/GLOBULIN RATIO 0.6 (1.1-1.5); ALKALINE PHOSPHATASE 566 IU/L (46-116); ANION GAP 13 (8-16); ASPARTATE AMINO TRANSFERASE 77 U/L (10-37); BILIRUBIN,TOTAL 1.1 MG/DL (0.1-1.0); BLOOD UREA NITROGEN 27 MG/DL (7-18); CALCIUM 8.7 MG/DL (8.5-10.1); CHLORIDE 107 MMOL/L (99-107); CREATININE 1.59 MG/DL (0.40-0.90); GLUCOSE 134 MG/DL (70-104); MAGNESIUM 1.7 MG/DL (1.5-2.4); PHOSPHORUS 3.9 MG/DL (2.3-4.5); POTASSIUM 4.8 MMOL/L (3.5-5.1); SODIUM 143 MMOL/L (135-145); TOTAL CARBON DIOXIDE 23.5 MMOL/L (24-32); TOTAL PROTEIN 6.2 G/DL (6.4-8.2); eGFR 33 ML/MIN
[2019-05-06] MEDS: K and/or MAG REPLACEMENT MC SCH ×2 (06:54→19:19)
[2019-05-06] MEDS ORDERED: phytonadione inj. 10 MG in normal saline 100ml IV soln 99 ML IV ONE (08:00)
[2019-05-06] MEDS: NUT.TX.GLUC.INTOLER,LAC-FR,SOY (GLUCERNA) 237 ML PO SCH ×3 (08:00→18:00)
[2019-05-06] MEDS: furosemide 40mg/4ml inj IV SCH (08:32)
[2019-05-06] MEDS: spironolactone 25 MG tablet PO SCH (08:32)
[2019-05-06] MEDS: nystatin 15 GM powder TP SCH ×3 (08:32→20:32)
[2019-05-06] MEDS: levoTHYROXINE 75mcg tablet PO SCH (08:32)
[2019-05-06] MEDS: carVEDilol 3.125mg tablet PO SCH ×2 (08:33→20:32)
[2019-05-06] MEDS: gabapentin 300mg capsule PO SCH ×2 (08:33→20:32)
[2019-05-06] MEDS: lisinopril 10 MG tablet PO SCH (08:33)
[2019-05-06] MEDS: micafungin inj 100 MG in normal saline 100ml IV soln 100 ML IV SCH (08:33)
[2019-05-06] MEDS: lactobacillus rhamnosus 10,000 MMU CELLS/CAPSULE PO SCH ×2 (08:33→20:32)
[2019-05-06] MEDS: acetaminophen 325mg tablet PO PRN (08:49)
[2019-05-06] MEDS: insulin Lispro (HumaLOG) vial - multi-dose SQ SCH ×2 (08:53→13:55)
[2019-05-06 11:00] VITALS: BP 112/58
--- NOTE | 2019-05-06 18:35 | NUR ---
Problems reprioritized. Patient report given, questions answered & plan of care reviewed with DAVID Aceves.
[2019-05-06 19:00] VITALS: BP 110/62
--- NOTE | 2019-05-06 19:52 | NUR ---
Patient in room [facility]. I have received report from DAVID Smalls and had the opportunity to ask questions and assume patient care. Addendum: 05/06/19 at 1954 by Yola Telles RN Amended: Links added.
[2019-05-06] MEDS: insulin glargine (Lantus) pen - multi-dose SQ SCH (20:59)
[2019-05-06] MEDS: pravastatin 40mg tablet PO SCH (21:00)
[2019-05-06] MEDS ORDERED: warfarin 1mg tablet PO ONE (21:00)
--- NOTE | 2019-05-06 21:34 | NUR ---
pk in place with brit urine in canister Addendum: 05/06/19 at 2135 by Yola Telles RN Amended: Links added.
[2019-05-06 23:53] VITALS: BP 96/46
[2019-05-07] MEDS: LORazepam 1 MG tablet PO PRN ×2 (02:30→11:59)
[2019-05-07] MEDS: acetaminophen 325mg tablet PO PRN ×2 (02:31→11:59)
[2019-05-07] MEDS: ipratropium/albuterol 3ml nebule NEB SCH ×3 (02:49→11:33)
[2019-05-07 04:29] LABS: BASOPHILS # (AUTO) 0.1 X10'3 (0-0.2); EOSINOPHILS # (AUTO) 0.2 X10'3 (0-0.9); LYMPHOCYTES # (AUTO) 1.2 X10'3 (1.1-4.8); MEAN CORPUSCULAR HGB CONC 32.4 g/dL (33.0-36.5); MEAN PLATELET VOLUME 8.5 FL (7.4-10.4)
[2019-05-07 04:31] LABS: BASOPHILS % (AUTO) 1.1 % (0-1); EOSINOPHILS % (AUTO) 3.4 % (0-6); HEMATOCRIT 35.9 % (35.0-45.0); HEMOGLOBIN 11.6 g/dl (12.0-16.0); LYMPHOCYTES % (AUTO) 24.6 % (21-51); MEAN CORPUSCULAR HEMOGLOBIN 30.8 PG (27.0-31.0); MEAN CORPUSCULAR VOLUME 95.1 FL (78-98); MONOCYTES # (AUTO) 0.7 X10'3 (0-0.9); NEUTROPHILS # (AUTO) 2.9 X10'3 (1.8-7.7); NEUTROPHILS % (AUTO) 57.9 % (42-75); PLATELET COUNT 256 X10'3 (140-440); RED BLOOD COUNT 3.78 X10'6 (4.20-5.60); RED CELL DISTRIBUTION WIDTH 15.9 % (11.5-14.5)
[2019-05-07 04:56] LABS: ALANINE AMINOTRANSFERASE 82 U/L (12-78); ALBUMIN 2.2 G/DL (3.4-5.0); ALBUMIN/GLOBULIN RATIO 0.6 (1.1-1.5); ALKALINE PHOSPHATASE 443 IU/L (46-116); ANION GAP 3 (8-16); ASPARTATE AMINO TRANSFERASE 54 U/L (10-37); BILIRUBIN,TOTAL 0.8 MG/DL (0.1-1.0); BLOOD UREA NITROGEN 26 MG/DL (7-18); BUN/CREATININE RATIO 17.1 (6.6-38.0); CALCIUM 8.5 MG/DL (8.5-10.1); CHLORIDE 109 MMOL/L (99-107); CREATININE 1.52 MG/DL (0.40-0.90); GLUCOSE 116 MG/DL (70-104); MAGNESIUM 1.5 MG/DL (1.5-2.4); PHOSPHORUS 4.5 MG/DL (2.3-4.5); POTASSIUM 4.3 MMOL/L (3.5-5.1); SODIUM 142 MMOL/L (135-145); TOTAL CARBON DIOXIDE 29.6 MMOL/L (24-32); TOTAL PROTEIN 5.6 G/DL (6.4-8.2); eGFR 34 ML/MIN
--- NOTE | 2019-05-07 06:18 | NUR ---
Problems reprioritized. Patient report given, questions answered & plan of care reviewed with DAVID Barlow. Addendum: 05/07/19 at 0619 by Yola Telles RN Amended: Links added.
[2019-05-07 07:01] VITALS: BP 84/70
[2019-05-07] MEDS: K and/or MAG REPLACEMENT MC SCH (08:00)
[2019-05-07] MEDS: lisinopril 10 MG tablet PO SCH (08:00)
[2019-05-07] MEDS ORDERED: lactulose 20gm/30ml cup PO SCH (08:00)
[2019-05-07] MEDS: furosemide 40mg/4ml inj IV SCH (08:53)
[2019-05-07] MEDS: lactobacillus rhamnosus 10,000 MMU CELLS/CAPSULE PO SCH (08:54)
[2019-05-07] MEDS: gabapentin 300mg capsule PO SCH (08:54)
[2019-05-07] MEDS: carVEDilol 3.125mg tablet PO SCH (08:54)
[2019-05-07] MEDS: levoTHYROXINE 75mcg tablet PO SCH (08:54)
[2019-05-07] MEDS: spironolactone 25 MG tablet PO SCH (08:54)
[2019-05-07] MEDS: micafungin inj 100 MG in normal saline 100ml IV soln 100 ML IV SCH (08:54)
[2019-05-07] MEDS: NUT.TX.GLUC.INTOLER,LAC-FR,SOY (GLUCERNA) 237 ML PO SCH (08:54)
[2019-05-07] MEDS: insulin Lispro (HumaLOG) vial - multi-dose SQ SCH (09:09)
[2019-05-07] MEDS ORDERED: warfarin 1mg tablet PO ONE (21:00)
== END 2019-05-07 14:15 | DRG 871 ==
LOC: ER 21:01 → ED HOLD 04-24 01:39 → EDBEDREQ 04-24 02:21 → SUR 3N 04-24 02:39
PROVIDERS: ADMIT Hospitalist; ATTEND Family Medicine
PROC: 02HV33Z Insertion of Infusion Device into Superior Vena Cava, Percutaneous Approach (ICD-10-PCS; principal; 2019-05-04)
DX: A41.9 Sepsis, unspecified organism (principal); I21.A1 Myocardial infarction type 2; I50.23 Acute on chronic systolic (congestive) heart failure; N39.0 Urinary tract infection, site not specified; N17.9 Acute kidney failure, unspecified; E66.2 Morbid (severe) obesity with alveolar hypoventilation; I42.9 Cardiomyopathy, unspecified; Z68.43 Body mass index [BMI] 50.0-59.9, adult; B96.20 Unspecified Escherichia coli [E. coli] as the cause of diseases classified elsewhere; E11.21 Type 2 diabetes mellitus with diabetic nephropathy; M54.9 Dorsalgia, unspecified; G89.29 Other chronic pain; N18.9 Chronic kidney disease, unspecified; E11.22 Type 2 diabetes mellitus with diabetic chronic kidney disease; E78.00 Pure hypercholesterolemia, unspecified; F17.200 Nicotine dependence, unspecified, uncomplicated; I25.10 Atherosclerotic heart disease of native coronary artery without angina pectoris; M19.90 Unspecified osteoarthritis, unspecified site; J44.9 Chronic obstructive pulmonary disease, unspecified; E03.9 Hypothyroidism, unspecified; E78.5 Hyperlipidemia, unspecified; Z88.5 Allergy status to narcotic agent; Z88.2 Allergy status to sulfonamides; Z88.8 Allergy status to other drugs, medicaments and biological substances; Z82.49 Family history of ischemic heart disease and other diseases of the circulatory system; I25.2 Old myocardial infarction; Z79.01 Long term (current) use of anticoagulants; Z79.890 Hormone replacement therapy; Z79.899 Other long term (current) drug therapy; Z86.711 Personal history of pulmonary embolism; Z87.440 Personal history of urinary (tract) infections; Z91.14 Patient's other noncompliance with medication regimen; Z95.0 Presence of cardiac pacemaker; Z95.828 Presence of other vascular implants and grafts; Z98.61 Coronary angioplasty status
CPT/HCPCS: 36415; 36573; 71045; 76700; 76937; 80048; 80053; 80202; 81001; 82140; 82948; 83036; 83605; 83735; 84100; 84145; 84443; 84484; 85025; 85610; 87040; 87081; 87088; 93005; 93308; 94640; 94760; 97110; 97112; 97116; 97162; 97530; 99285; G0378; J0696; J1815; J1940; J2248; J2405; J2543; J3370; J3430; J7030

== ENCOUNTER 2019-05-30 09:52 | Outpatient (CLI) | payer MEDICARE ==
[~2019-05-30 09:52] MED LIST changes: -ALBU8.5H8 INH; +AMA1T PO; +CARV-50 PO; -CARV3.122 PO; -CEPH500C5 PO; +COU5T PO; +COU7.5T PO; -FAMO40TA73 PO; -FURO-149 PO; +FURO-150 PO; +GABA-532 PO; -GABA300C PO; -GLIM4TAB7 PO; +LANTUS SQ; +LEVO150T8 PO; -LEVO75TA7 PO; -LISI2.5T2 PO; +METF500T PO; -NPH,100V2 SQ; -POTA10TA36 PO; +PRAV40TA3 PO; -PROC-8 PO; -WARF-55 PO
[2019-05-31] MEDS ORDERED: LISI-604 PO (03:50)
[2019-05-31] MEDS ORDERED: SPIR25TA PO (03:50)
[2019-05-31] MEDS ORDERED: LIDO1ADH TP (03:50)
[2019-05-31] MEDS ORDERED: IPRA3AMP31 IH (03:50)
[2019-05-31] MEDS ORDERED: LACT10SO PO (03:50)
[2019-05-31] MEDS ORDERED: LEVO125T PO (10:30)
[2019-06-02] MEDS ORDERED: FURO-150 PO (10:01)
== END 2019-05-30 23:59 | disposition home or self-care (01) ==
LOC: LAB SPEC 09:52
PROVIDERS: ATTEND Family Medicine
DX: I50.9 Heart failure, unspecified (principal); Z86.711 Personal history of pulmonary embolism
CPT/HCPCS: 36415; 85610

== ENCOUNTER 2019-09-29 10:35 | Emergency (ER) | payer MEDICARE ==
[~2019-09-29] VITALS: Ht 160 cm; Wt 85.0 kg
[~2019-09-29 10:35] MED LIST changes: -COU5T PO; -GABA-532 PO; +IPRA3AMP31 IH; +LACT10SO PO; +LEVO125T PO; -LEVO150T8 PO; +LIDO1ADH TP; +LISI-604 PO; +SPIR25TA PO; +WARF-113 PO
[2019-09-29 11:29] LABS: D-DIMER 5.27 MG/L FEU (0-0.50)
[2019-09-29] MEDS ORDERED: acetaminophen 325mg tablet PO ONE (11:35)
[2019-09-29] MEDS ORDERED: LIDOcaine Viscous 15ml cup MM PRN (13:10)
[2019-09-29] MEDS ORDERED: sucralfate 1gm/10ml UD suspension PO ONE (13:10)
[2019-09-29] MEDS ORDERED: sucralfate 1gm/10ml UD suspension PO SCH (13:10)
[2019-09-29] MEDS ORDERED: mag hydrox/Alum hydrox/simeth 30ml oral suspension PO ONE (13:10)
[2019-09-29 13:41] VITALS: BP 151/80
[2019-09-29] MEDS ORDERED: TRAM50TA2 PO (19:13)
== END 2019-09-29 13:42 | disposition home or self-care (01) ==
LOC: ER 10:35
DX: S86.912A Strain of unspecified muscle(s) and tendon(s) at lower leg level, left leg, initial encounter (principal); M19.90 Unspecified osteoarthritis, unspecified site; I25.10 Atherosclerotic heart disease of native coronary artery without angina pectoris; I50.9 Heart failure, unspecified; E78.00 Pure hypercholesterolemia, unspecified; I25.2 Old myocardial infarction; J44.9 Chronic obstructive pulmonary disease, unspecified; K21.9 Gastro-esophageal reflux disease without esophagitis; N18.9 Chronic kidney disease, unspecified; E11.22 Type 2 diabetes mellitus with diabetic chronic kidney disease; G89.29 Other chronic pain; F32.9 Major depressive disorder, single episode, unspecified; Z86.718 Personal history of other venous thrombosis and embolism; Z86.711 Personal history of pulmonary embolism; Z88.2 Allergy status to sulfonamides; Z88.5 Allergy status to narcotic agent; Z88.8 Allergy status to other drugs, medicaments and biological substances; Z79.4 Long term (current) use of insulin; Z79.01 Long term (current) use of anticoagulants; Z79.899 Other long term (current) drug therapy; X58.XXXA Exposure to other specified factors, initial encounter; Y93.89 Activity, other specified; Y92.89 Other specified places as the place of occurrence of the external cause; Y99.8 Other external cause status
CPT/HCPCS: 36415; 85379; 93971; 99284

== ENCOUNTER 2019-09-29 18:09 | Emergency (ER) | payer MEDICARE ==
[~2019-09-29] VITALS: Ht 160 cm; Wt 109.1 kg
[2019-09-29 18:22] VITALS: BP 133/87
[2019-09-29] MEDS ORDERED: TRAM50TA2 PO (19:13)
[2019-09-29] MEDS ORDERED: ketorolac trometh inj. 60 MG/2 ML VIAL IM ONE (19:15)
[2019-09-29] MEDS ORDERED: ketorolac trometh. 30mg/ml inj. IM ONE (19:15)
== END 2019-09-29 19:52 | disposition home or self-care (01) ==
LOC: ER 18:10
DX: M19.90 Unspecified osteoarthritis, unspecified site (principal); I25.10 Atherosclerotic heart disease of native coronary artery without angina pectoris; I50.9 Heart failure, unspecified; E78.00 Pure hypercholesterolemia, unspecified; I25.2 Old myocardial infarction; J44.9 Chronic obstructive pulmonary disease, unspecified; K21.9 Gastro-esophageal reflux disease without esophagitis; N18.9 Chronic kidney disease, unspecified; E11.22 Type 2 diabetes mellitus with diabetic chronic kidney disease; G89.29 Other chronic pain; Z98.61 Coronary angioplasty status; Z95.0 Presence of cardiac pacemaker; Z90.49 Acquired absence of other specified parts of digestive tract; Z98.890 Other specified postprocedural states; Z88.2 Allergy status to sulfonamides; Z88.5 Allergy status to narcotic agent; Z79.4 Long term (current) use of insulin; Z79.01 Long term (current) use of anticoagulants; Z79.899 Other long term (current) drug therapy
CPT/HCPCS: 82948; 96372; 99283; J1885

== ENCOUNTER 2019-10-02 10:04 | Inpatient (IN) | payer MEDICARE ==
[2019-10-02] VITALS (15 sets, daily range): BP systolic 100–140; BP diastolic 53–81
[~2019-10-02] VITALS: Ht 160 cm; Wt 129.0 kg
[~2019-10-02 10:04] MED LIST changes: +TRAM50TA2 PO
--- NOTE | 2019-10-02 10:18 | NUR ---
left doralis pedis and posterior tibial are pulseless to doppler. Patient complains of numbness and inability to move the toes. Urvashi Gutierrez NP notified.
[2019-10-02 10:46] LABS: BASOPHILS # (AUTO) 0.1 X10'3 (0-0.2); EOSINOPHILS # (AUTO) 0.2 X10'3 (0-0.9); EOSINOPHILS % (AUTO) 2.6 % (0-6); HEMATOCRIT 43.1 % (35.0-45.0); HEMOGLOBIN 14.4 g/dl (12.0-16.0); LYMPHOCYTES # (AUTO) 1.7 X10'3 (1.1-4.8); MEAN CORPUSCULAR HEMOGLOBIN 30.8 PG (27.0-31.0); MEAN CORPUSCULAR HGB CONC 33.4 g/dL (33.0-36.5); MEAN CORPUSCULAR VOLUME 92.3 FL (78-98); MEAN PLATELET VOLUME 9.4 FL (7.4-10.4); MONOCYTES # (AUTO) 0.9 X10'3 (0-0.9); MONOCYTES % (AUTO) 10.4 % (2-12); NEUTROPHILS # (AUTO) 5.7 X10'3 (1.8-7.7); PLATELET COUNT 186 X10'3 (140-440); RED BLOOD COUNT 4.67 X10'6 (4.20-5.60); RED CELL DISTRIBUTION WIDTH 14.5 % (11.5-14.5); WHITE BLOOD COUNT 8.6 X10'3 (4.5-11.0)
[2019-10-02 11:04] LABS: PARTIAL THROMBOPLASTIN TIME 21 SECONDS (22-32)
[2019-10-02 11:05] LABS: ALANINE AMINOTRANSFERASE 29 U/L (12-78); ALBUMIN 3.4 G/DL (3.4-5.0); ALBUMIN/GLOBULIN RATIO 0.8 (1.1-1.5); ALKALINE PHOSPHATASE 79 IU/L (46-116); ANION GAP 10 (8-16); ASPARTATE AMINO TRANSFERASE 150 U/L (10-37); BILIRUBIN,TOTAL 0.6 MG/DL (0.1-1.0); BLOOD UREA NITROGEN 27 MG/DL (7-18); BUN/CREATININE RATIO 19.6 (6.6-38.0); CHLORIDE 100 MMOL/L (99-107); CREATININE 1.38 MG/DL (0.40-0.90); GLUCOSE 290 MG/DL (70-104); SODIUM 134 MMOL/L (135-145); TOTAL CARBON DIOXIDE 24.2 MMOL/L (24-32); TOTAL PROTEIN 7.7 G/DL (6.4-8.2); eGFR 38 ML/MIN
[2019-10-02] MEDS ORDERED: iohexol 350 MG/ML 50ML vial IV ONE (11:34)
[2019-10-02] MEDS ORDERED: iohexol 350MG/ML 100ml bottle IV ONE (11:35)
[2019-10-02] MEDS ORDERED: normal saline 1000ML IV soln IVB ONE (11:35)
[2019-10-02 11:50] LABS: D-DIMER 1.77 MG/L FEU (0-0.50)
[2019-10-02] MEDS ORDERED: ondansetron/PF 4mg/2ml inj IV ONE (12:05)
[2019-10-02] MEDS ORDERED: fentaNYL/PF 50MCG/1 ML 2ML syringe IV ONE (12:05)
[2019-10-02] MEDS ORDERED: magnesium hydroxide 30ml (MOM) UD suspension PO PRN (12:35)
[2019-10-02] MEDS ORDERED: potassium CL 10mEq/100ml bag 100 ML IV PRN ×2 (12:35)
[2019-10-02] MEDS ORDERED: heparin 10,000 units/1 ML INJ IV ONE (12:35)
[2019-10-02] MEDS ORDERED: heparin 10,000 units/1 ML INJ IV PRN ×2 (12:35→22:00)
[2019-10-02] MEDS ORDERED: potassium Cl 20 mEq SR tablet PO PRN ×2 (12:35)
[2019-10-02] MEDS ORDERED: acetaminophen 325mg tablet PO PRN ×3 (12:35→14:10)
[2019-10-02] MEDS: heparin 25,000 UNIT/250ml bag 250 ML IV SCH (12:35)
[2019-10-02] MEDS ORDERED: LEVO125T PO (13:11)
[2019-10-02] MEDS ORDERED: SPIR25TA5 PO (13:11)
[2019-10-02] MEDS ORDERED: RIVA20TA PO (13:11)
[2019-10-02] MEDS ORDERED: PROC10TA10 PO (13:11)
[2019-10-02] MEDS ORDERED: CARV3.122 PO (13:11)
[2019-10-02] MEDS ORDERED: ACET-1008 PO (13:11)
[2019-10-02] MEDS ORDERED: GABA300C PO (13:11)
[2019-10-02] MEDS ORDERED: METF-438 PO (13:11)
[2019-10-02] MEDS ORDERED: LISI10TA4 PO (13:11)
[2019-10-02] MEDS ORDERED: PRAV40TA3 PO (13:11)
[2019-10-02] MEDS ORDERED: INSU100V9 SQ (13:11)
[2019-10-02] MEDS ORDERED: heparin 10,000 units/1 ML INJ ONE (13:20)
[2019-10-02] MEDS ORDERED: LIDOcaine 1% (10mg/ml) 2ml vial ONE (13:20)
[2019-10-02] MEDS: normal saline 1000ml 1,000 ML IV SCH (13:30)
[2019-10-02] MEDS ORDERED: sevoflurane 250ml liquid IH ONE (13:35)
[2019-10-02] MEDS ORDERED: neostigmine methylsulfate 1 MG/ML 10ml vial ONE (13:35)
[2019-10-02] MEDS ORDERED: glycopyrrolate 0.2mg/ml inj ONE (13:35)
[2019-10-02] MEDS ORDERED: fentaNYL /PF 50mcg/ml 5ml ampule ONE (13:50)
[2019-10-02] MEDS ORDERED: midazolam 2 mg/2 ml injection ONE (13:55)
[2019-10-02] MEDS ORDERED: NORepinephrine 8 MG in NS 250 ML BAG (32 mcg/ml) IV ONE (14:00)
[2019-10-02] MEDS ORDERED: heparin 1,000unit/ml 10ml vial 10 ML ONE (14:49)
[2019-10-02] MEDS ORDERED: ePHEDrine 50MG/ML INJ. ONE (14:49)
[2019-10-02] MEDS ORDERED: rocuronium 10mg/ml inj IV ONE (14:49)
[2019-10-02] MEDS ORDERED: 0.9 % SODIUM CHLORIDE 10 ML VIAL ONE (14:49)
[2019-10-02] MEDS ORDERED: LIDOcaine 2% (20mg/ml) 5ml vial ONE (14:50)
[2019-10-02] MEDS ORDERED: ceFAZolin 1000mg inj ONE ×2 (14:50)
[2019-10-02] MEDS ORDERED: phenylephrine 10mg/ml inj. ONE (14:50)
[2019-10-02] MEDS ORDERED: propofol inj 20 ML IV ONE (14:50)
[2019-10-02] MEDS ORDERED: insulin regular, human U-100 3ml vial - multi-dose ONE (15:09)
[2019-10-02] MEDS ORDERED: ondansetron/PF 4mg/2ml inj ONE (15:11)
[2019-10-02] MEDS ORDERED: dexamethasone sod phosphate 4mg/ml inj. ONE (15:11)
[2019-10-02] MEDS ORDERED: ondansetron/PF 4mg/2ml inj IV PRN (15:35)
[2019-10-02] MEDS ORDERED: ringers solution, lacted 1,000 ML IV SCH (15:35)
[2019-10-02] MEDS ORDERED: HYDROmorphone inj. 0.5 MG/0.5 ML DISP.SYRIN IV PRN (15:35)
[2019-10-02] MEDS ORDERED: proCHLORperazine 10 MG/2 ml inj IV PRN (15:35)
[2019-10-02] MEDS ORDERED: fentaNYL/PF 50MCG/1 ML 2ML syringe IV PRN ×2 (15:35)
--- NOTE | 2019-10-02 16:04 | NUR ---
RECEIVED FROM OR VIA BED ACCOMPANIED BY ANESTHESIOLOGIST DR OLVERA, REPORT GIVEN.TRIPLE LUMEN CENTRAL LINE R JUGULAR, 20 GAUGE ART LINE R WRIST, 20 GAUGE PIV R HAND, F/C DRAINING CLEAR YELLOW FLUID, PROVENA DRESSING L GROIN INTACT, KERLIX DRESSING LLE DRY AND INTACT WITH SCANT SS DRAINAGE NEAR ANKLE. PERIPHERAL PULSES PRESENT, PEDAL PULSES LOCATED WITH DOPPLER. RESTING COMFORTABLY.
[2019-10-02] MEDS: ondansetron/PF 4mg/2ml inj IV PRN (17:01)
[2019-10-02] MEDS: HYDROmorphone inj. 0.5 MG/0.5 ML DISP.SYRIN IV PRN ×2 (17:02→18:33)
[2019-10-02] MEDS: metFORMIN 500mg tablet PO SCH (17:30)
--- NOTE | 2019-10-02 17:30 | NUR ---
Received patient from OR via hospital bed accompanied by OR nurse. Patient vital signs stable. Left foot warm, palpable pulse, patient states that she is still unable to move foot purposely. L leg dressing with minimal bloody drainage.
--- NOTE | 2019-10-02 17:34 | NUR ---
TRANSFERRED VIA BED ACCOMPANIED MYSELF, REPORT GIVEN.TRIPLE LUMEN CENTRAL LINE R JUGULAR, 20 GAUGE ART LINE R WRIST, 20 GAUGE PIV R HAND, F/C DRAINING CLEAR YELLOW FLUID, PROVENA DRESSING L GROIN INTACT, KERLIX DRESSING LLE DRY AND INTACT WITH SCANT SS DRAINAGE NEAR ANKLE. PERIPHERAL PULSES PRESENT, PEDAL PULSES LOCATED WITH DOPPLER. RESTING COMFORTABLY.LEFT IN CARE OF ICU NURSE
--- NOTE | 2019-10-02 18:07 | NUR ---
Patient in room ICU 2041. I have received report from Julieta HERNANDEZ, and had the opportunity to ask questions and assume patient care.
--- NOTE | 2019-10-02 19:42 | NUR ---
Problems reprioritized. Patient report given, questions answered & plan of care reviewed with Leatha HERNANDEZ.
[2019-10-02 19:43] LABS: HEMATOCRIT 36.5 % (35.0-45.0); MEAN CORPUSCULAR HEMOGLOBIN 30.6 PG (27.0-31.0); MEAN CORPUSCULAR VOLUME 92.7 FL (78-98); MEAN PLATELET VOLUME 9.4 FL (7.4-10.4); PLATELET COUNT 163 X10'3 (140-440); RED BLOOD COUNT 3.93 X10'6 (4.20-5.60); RED CELL DISTRIBUTION WIDTH 14.3 % (11.5-14.5); WHITE BLOOD COUNT 13.2 X10'3 (4.5-11.0)
--- NOTE | 2019-10-02 20:30 | NUR ---
Patient in room ICU 2041. I have received report from DAVID Keller and had the opportunity to ask questions and assume patient care.
[2019-10-02] MEDS: famotidine 10mg tablet PO SCH (22:25)
[2019-10-02] MEDS: sennosides/docusate sodium tablet PO SCH (22:26)
[2019-10-02] MEDS: docusate sod 100mg capsule PO SCH (22:27)
[2019-10-02] MEDS: carVEDilol 3.125mg tablet PO SCH (22:27)
[2019-10-02] MEDS: pravastatin 40mg tablet PO SCH (22:28)
[2019-10-02] MEDS: gabapentin 300mg capsule PO SCH (22:28)
[2019-10-02] MEDS: insulin glargine (Lantus) pen - multi-dose SQ SCH (22:31)
[2019-10-03] VITALS (33 sets, daily range): BP systolic 63–117; BP diastolic 24–72
--- NOTE | 2019-10-03 01:15 | NUR ---
Pt regaining movement in L lower extremity, able to move foot.
[2019-10-03] MEDS: heparin 25,000 UNIT/250ml bag 250 ML IV SCH (01:45)
[2019-10-03] MEDS: normal saline 1000ml 1,000 ML IV SCH ×4 (01:55→19:04)
[2019-10-03] MEDS: HYDROmorphone inj. 0.5 MG/0.5 ML DISP.SYRIN IV PRN ×2 (02:02→09:14)
[2019-10-03 04:28] LABS: BASOPHILS % (AUTO) 0.3 % (0-1); EOSINOPHILS % (AUTO) 0 % (0-6); HEMATOCRIT 35.8 % (35.0-45.0); HEMOGLOBIN 11.4 g/dl (12.0-16.0); LYMPHOCYTES # (AUTO) 0.9 X10'3 (1.1-4.8); LYMPHOCYTES % (AUTO) 6.7 % (21-51); MEAN CORPUSCULAR HEMOGLOBIN 29.8 PG (27.0-31.0); MEAN CORPUSCULAR HGB CONC 31.9 g/dL (33.0-36.5); MEAN CORPUSCULAR VOLUME 93.5 FL (78-98); MEAN PLATELET VOLUME 9.9 FL (7.4-10.4); MONOCYTES # (AUTO) 0.6 X10'3 (0-0.9); MONOCYTES % (AUTO) 4.6 % (2-12); NEUTROPHILS # (AUTO) 11.8 X10'3 (1.8-7.7); NEUTROPHILS % (AUTO) 88.4 % (42-75); PLATELET COUNT 156 X10'3 (140-440); RED BLOOD COUNT 3.83 X10'6 (4.20-5.60); RED CELL DISTRIBUTION WIDTH 14.3 % (11.5-14.5); WHITE BLOOD COUNT 13.3 X10'3 (4.5-11.0)
[2019-10-03 04:45] LABS: ALANINE AMINOTRANSFERASE 44 U/L (12-78); ALBUMIN 2.5 G/DL (3.4-5.0); ALBUMIN/GLOBULIN RATIO 0.7 (1.1-1.5); ALKALINE PHOSPHATASE 62 IU/L (46-116); ANION GAP 6 (8-16); ASPARTATE AMINO TRANSFERASE 322 U/L (10-37); BILIRUBIN,TOTAL 0.3 MG/DL (0.1-1.0); BLOOD UREA NITROGEN 29 MG/DL (7-18); CALCIUM 11.1 MG/DL (8.5-10.1); CHLORIDE 105 MMOL/L (99-107); CREATININE 1.71 MG/DL (0.40-0.90); GLUCOSE 242 MG/DL (70-104); MAGNESIUM 1.3 MG/DL (1.5-2.4); POTASSIUM 5.9 MMOL/L (3.5-5.1); SODIUM 134 MMOL/L (135-145); TOTAL CARBON DIOXIDE 23.4 MMOL/L (24-32); eGFR 30 ML/MIN
--- NOTE | 2019-10-03 06:41 | NUR ---
Problems reprioritized. Patient report given, questions answered & plan of care reviewed with DAVID Abel.
--- NOTE | 2019-10-03 06:47 | NUR ---
Patient in room ICU 2041. I have received report from DAVID Zhang and had the opportunity to ask questions and assume patient care.
[2019-10-03] MEDS: metFORMIN 500mg tablet PO SCH ×2 (07:30→17:30)
[2019-10-03] MEDS ORDERED: lisinopril 10 MG tablet PO SCH (08:00)
[2019-10-03] MEDS ORDERED: spironolactone 25 MG tablet PO SCH (08:00)
[2019-10-03] MEDS: carVEDilol 3.125mg tablet PO SCH (08:00)
[2019-10-03] MEDS: gabapentin 300mg capsule PO SCH ×3 (08:51→21:04)
[2019-10-03] MEDS: docusate sod 100mg capsule PO SCH ×2 (08:51→21:04)
[2019-10-03] MEDS: levoTHYROXINE 125mcg tablet PO SCH (08:51)
[2019-10-03] MEDS: famotidine 10mg tablet PO SCH ×2 (08:51→21:04)
[2019-10-03] MEDS ORDERED: MESSAGE TO NURSING PO NR (10:00)
[2019-10-03 11:18] LABS: HEMOGLOBIN A1C 9.9 % (4.5-6.2)
[2019-10-03] MEDS ORDERED: glucagon, human recombinant 1mg kit SUBCUT PRN (11:35)
[2019-10-03] MEDS ORDERED: dextrose ORAL solution 15 GM/59 ML bottle PO PRN ×2 (11:35)
[2019-10-03] MEDS ORDERED: MESSAGE TO PHARMACY PO ONE (11:35)
[2019-10-03] MEDS ORDERED: dextrose 50%-water 50ml dispensing syringe IV PRN ×2 (11:35)
[2019-10-03] MEDS ORDERED: CADD PCA waste documentation MC PRN ×2 (11:55→12:00)
[2019-10-03] MEDS ORDERED: naloxone 0.4 mg/ml inj IV PRN ×2 (11:55→12:00)
[2019-10-03] MEDS ORDERED: normal saline 1000ml 1,000 ML IV SCH (12:00)
--- NOTE | 2019-10-03 12:50 | NUR ---
ELSA d/w RN regarding updated A1C given hx DM prior A1C 9.9 in April. Addendum: 10/03/19 at [address] Amended: Links added.
[2019-10-03] MEDS: HYDROmorphone/NS 1 mg/ml CADD 50 ML IV SCH ×7 (13:00→23:00)
[2019-10-03] MEDS ORDERED: HYDROmorphone/NS 1 mg/ml CADD 50 ML IV SCH (13:00)
[2019-10-03] MEDS: insulin Lispro (HumaLOG) vial - multi-dose SQ SCH ×2 (13:41→19:21)
--- NOTE | 2019-10-03 13:47 | NUR ---
Cardiac diet consult: Pt A1C results 9.9 w/ no lipid panel this admit; likely supposed to be DM consult. Pt would benefit from DM ed once PO diet advanced from clears and tolerated prior to discharge. Addendum: 10/03/19 at [address] Amended: Links added.
[2019-10-03] MEDS: apixaban 5mg tablet PO SCH ×2 (14:35→20:00)
[2019-10-03 16:42] LABS: CLARITY,URINE CLOUDY (Clear); COLOR,URINE YELLOW (Yellow); GLUCOSE, URINE 100 mg/dl (Neg); KETONES,URINE TRACE mg/dl (Neg); LEUKOCYTE ESTERASE ,URINE MODERATE (Neg); NITRITES, URINE NEGATIVE (Neg); OCCULT BLOOD,URINE LARGE (Neg); PROTEIN,URINE 30 mg/dl (Neg); UROBILINOGEN,URINE 0.2 E.U/dL (0.2-1.0)
[2019-10-03 16:52] LABS: UA COLLECTION TYPE NON-SPECIFIED
[2019-10-03 17:51] LABS: WBC,URINE TNTC /HPF (0-4)
[2019-10-03 17:54] LABS: BACTERIA,URINE 1+ /HPF (Neg); MUCUS STRANDS FEW /LPF (Neg); RBC,URINE 20-50 /HPF (0-2); SQUAMOUS EPITHELIAL CELL,UR MANY /LPF (FEW); TRANSITIONAL EPI CELLS,URINE FEW /HPF
[2019-10-03 17:55] LABS: WBC CLUMPS,URINE MANY /HPF (NEGATIVE)
--- NOTE | 2019-10-03 18:36 | NUR ---
Problems reprioritized. Patient report given, questions answered & plan of care reviewed with DAVID Duncan.
--- NOTE | 2019-10-03 18:36 | NUR ---
Patient in room ICU 2041. I have received report from Grace HERNANDEZ and had the opportunity to ask questions and assume patient care.
[2019-10-03 18:40] LABS: UA EOSINOPHILS NO EOS /HPF
--- NOTE | 2019-10-03 20:28 | NUR ---
Arterial line d/c'd. Pt hypotensive,BP:84/24@2027. Awake and alert, answering questions but confused at times. Unsure of day of the week. Central line not d/c'd. Sutures of the central were cut prior to patient becoming hypotensive. Secured central line with tape. Adela notified, transfer to Surgical floor canceled. Orders received.
[2019-10-03] MEDS ORDERED: normal saline 250ml IV soln 250 ML IV ONE ×2 (20:40→21:30)
[2019-10-03] MEDS ORDERED: insulin glargine (Lantus) pen - multi-dose SQ SCH (21:00)
[2019-10-03 21:05] LABS: HEMATOCRIT 31.1 % (35.0-45.0); HEMOGLOBIN 10.1 g/dl (12.0-16.0); MEAN CORPUSCULAR HEMOGLOBIN 30.9 PG (27.0-31.0); MEAN CORPUSCULAR HGB CONC 32.6 g/dL (33.0-36.5); MEAN CORPUSCULAR VOLUME 94.8 FL (78-98); MEAN PLATELET VOLUME 9.7 FL (7.4-10.4); PLATELET COUNT 159 X10'3 (140-440); RED BLOOD COUNT 3.28 X10'6 (4.20-5.60); RED CELL DISTRIBUTION WIDTH 14.6 % (11.5-14.5); WHITE BLOOD COUNT 11.2 X10'3 (4.5-11.0)
[2019-10-03] MEDS: pravastatin 40mg tablet PO SCH (21:06)
[2019-10-03] MEDS: sennosides/docusate sodium tablet PO SCH (21:07)
[2019-10-03] MEDS: nystatin 15 GM powder TP SCH (21:08)
[2019-10-03] MEDS ORDERED: FENTANYL-0.9 % NACL/PF 100 ML IV PRN (21:56)
[2019-10-03] MEDS ORDERED: propofol 1000mg/100ml bottle 100 ML IV SCH (21:56)
[2019-10-03 22:40] LABS: OXYGEN SATURATION (MIXED VEN) 53.3 % (60-80); PO2 MIXED VENOUS (TEMP COR) 29.7 mmHg (35-46)
[2019-10-03] MEDS ORDERED: normal saline 1000ml 1,000 ML IVB ONE (22:46)
[2019-10-03] MEDS ORDERED: pantoprazole 40mg Tablet.DR PO ONE (22:55)
[2019-10-03] MEDS: insulin glargine (Lantus) pen - multi-dose SQ SCH (22:59)
[2019-10-03 23:18] LABS: ALBUMIN 2.3 G/DL (3.4-5.0); ANION GAP 6 (8-16); BILIRUBIN,TOTAL 0.2 MG/DL (0.1-1.0); BLOOD UREA NITROGEN 36 MG/DL (7-18); BUN/CREATININE RATIO 12.3 (6.6-38.0); CHLORIDE 107 MMOL/L (99-107); CREATININE 2.93 MG/DL (0.40-0.90); GLUCOSE 237 MG/DL (70-104); POTASSIUM 5.8 MMOL/L (3.5-5.1); SODIUM 133 MMOL/L (135-145); TOTAL CARBON DIOXIDE 20.1 MMOL/L (24-32); TOTAL PROTEIN 5.5 G/DL (6.4-8.2); eGFR 16 ML/MIN
[2019-10-03 23:19] LABS: ALANINE AMINOTRANSFERASE 38 U/L (12-78); ALBUMIN/GLOBULIN RATIO 0.7 (1.1-1.5); ALKALINE PHOSPHATASE 54 IU/L (46-116); ASPARTATE AMINO TRANSFERASE 301 U/L (10-37)
[2019-10-03] MEDS ORDERED: aspirin 81mg tab.chew PO ONE (23:30)
[2019-10-04] VITALS (23 sets, daily range): BP systolic 81–154; BP diastolic 16–96
[2019-10-04] MEDS: apixaban 5mg tablet PO SCH ×3 (00:05→20:24)
[2019-10-04] MEDS: HYDROmorphone/NS 1 mg/ml CADD 50 ML IV SCH ×12 (01:00→23:00)
[2019-10-04] MEDS ORDERED: normal saline 1000ml 1,000 ML IVB ONE ×2 (01:10→03:10)
[2019-10-04] MEDS: NORepinephrine 8mg/ 250ml NS 250 ML IV PRN ×2 (01:38→13:33)
[2019-10-04 02:17] LABS: BASOPHILS # (AUTO) 0.1 X10'3 (0-0.2); BASOPHILS % (AUTO) 0.9 % (0-1); EOSINOPHILS % (AUTO) 0.1 % (0-6); HEMATOCRIT 31.4 % (35.0-45.0); HEMOGLOBIN 10.1 g/dl (12.0-16.0); LYMPHOCYTES # (AUTO) 1.2 X10'3 (1.1-4.8); LYMPHOCYTES % (AUTO) 9.9 % (21-51); MEAN CORPUSCULAR HEMOGLOBIN 30.4 PG (27.0-31.0); MEAN CORPUSCULAR HGB CONC 32.1 g/dL (33.0-36.5); MEAN CORPUSCULAR VOLUME 94.6 FL (78-98); MEAN PLATELET VOLUME 9.8 FL (7.4-10.4); MONOCYTES # (AUTO) 1.2 X10'3 (0-0.9); MONOCYTES % (AUTO) 9.3 % (2-12); NEUTROPHILS # (AUTO) 9.9 X10'3 (1.8-7.7); NEUTROPHILS % (AUTO) 79.8 % (42-75); PLATELET COUNT 177 X10'3 (140-440); RED BLOOD COUNT 3.32 X10'6 (4.20-5.60); RED CELL DISTRIBUTION WIDTH 14.9 % (11.5-14.5); WHITE BLOOD COUNT 12.4 X10'3 (4.5-11.0)
[2019-10-04 02:36] LABS: ALANINE AMINOTRANSFERASE 42 U/L (12-78); ALBUMIN 2.4 G/DL (3.4-5.0); ALBUMIN/GLOBULIN RATIO 0.7 (1.1-1.5); ALKALINE PHOSPHATASE 64 IU/L (46-116); ANION GAP 7 (8-16); ASPARTATE AMINO TRANSFERASE 307 U/L (10-37); BILIRUBIN,TOTAL 0.2 MG/DL (0.1-1.0); BLOOD UREA NITROGEN 35 MG/DL (7-18); BUN/CREATININE RATIO 12.2 (6.6-38.0); CALCIUM 9.1 MG/DL (8.5-10.1); CHLORIDE 105 MMOL/L (99-107); CREATININE 2.88 MG/DL (0.40-0.90); GLUCOSE 253 MG/DL (70-104); MAGNESIUM 1.2 MG/DL (1.5-2.4); PHOSPHORUS 3.8 MG/DL (2.3-4.5); SODIUM 133 MMOL/L (135-145); TOTAL CARBON DIOXIDE 20.8 MMOL/L (24-32); TOTAL PROTEIN 5.8 G/DL (6.4-8.2); eGFR 16 ML/MIN
[2019-10-04 02:39] LABS: POTASSIUM 6.2 MMOL/L (3.5-5.1)
[2019-10-04 02:40] LABS: TROPONIN I 0.74 NG/ML (0.0-0.05)
[2019-10-04 03:02] LABS: PARTIAL THROMBOPLASTIN TIME 26 SECONDS (22-32)
[2019-10-04] MEDS ORDERED: metoprolol tartrate 1mg/ml inj IV ONE (03:35)
--- NOTE | 2019-10-04 03:35 | NUR ---
Pt sinus tach in the 140's, pale and nauseated. Hypotensive, titrating Levophed to maintain BP. Alexia Cross notified and updated on current critical values. Orders received.
[2019-10-04] MEDS: ondansetron/PF 4mg/2ml inj IV PRN (03:38)
[2019-10-04 06:25] LABS: ALBUMIN 2.5 G/DL (3.4-5.0); ANION GAP 12 (8-16); BLOOD UREA NITROGEN 37 MG/DL (7-18); BUN/CREATININE RATIO 12.4 (6.6-38.0); CALCIUM 8.3 MG/DL (8.5-10.1); CHLORIDE 105 MMOL/L (99-107); CREATININE 2.99 MG/DL (0.40-0.90); GLUCOSE 362 MG/DL (70-104); PHOSPHORUS 4.1 MG/DL (2.3-4.5); SODIUM 133 MMOL/L (135-145); TOTAL CARBON DIOXIDE 15.8 MMOL/L (24-32); eGFR 16 ML/MIN
--- NOTE | 2019-10-04 06:29 | NUR ---
Problems reprioritized. Patient report given, questions answered & plan of care reviewed with Jaycob HERNANDEZ.
[2019-10-04 06:38] LABS: POTASSIUM 6.1 MMOL/L (3.5-5.1); TROPONIN I 0.67 NG/ML (0.0-0.05)
--- NOTE | 2019-10-04 07:04 | NUR ---
Patient woke up very confused. Pulling of leads, and trying to take off [place]a. She is saying that she is going to be late to her Mom and Dad's wedding. She does know that she is in the hospital in [facility], but doesn't know the year, or why she is here.
--- NOTE | 2019-10-04 07:04 | NUR ---
Patient in room ICU 2041. I have received report from Perla HERNANDEZ and had the opportunity to ask questions and assume patient care.
[2019-10-04] MEDS ORDERED: albuterol 2.5 MG/3 ML nebule CONTNEB STA (07:11)
[2019-10-04] MEDS ORDERED: dextrose 50%-water 50ml dispensing syringe IV ONE (07:15)
[2019-10-04] MEDS ORDERED: sodium polystyrene sulfonate 15gm/60ml oral suspension PO ONE (07:15)
[2019-10-04] MEDS ORDERED: insulin regular, human U-100 3ml vial - multi-dose IV ONE (07:15)
[2019-10-04] MEDS: levoTHYROXINE 125mcg tablet PO SCH (08:15)
[2019-10-04] MEDS: docusate sod 100mg capsule PO SCH ×2 (08:15→20:25)
[2019-10-04] MEDS: gabapentin 300mg capsule PO SCH (08:15)
[2019-10-04] MEDS: famotidine 10mg tablet PO SCH ×2 (08:16→20:23)
[2019-10-04] MEDS: sodium bicarbonate (8.4%) inj. 150 MEQ in dextrose 5%-water 1,000 ML IV SCH ×2 (08:47→20:42)
[2019-10-04] MEDS: insulin Lispro (HumaLOG) vial - multi-dose SQ SCH ×3 (09:07→20:21)
[2019-10-04] MEDS: nystatin 15 GM powder TP SCH ×3 (10:51→20:25)
[2019-10-04 11:09] LABS: ALBUMIN 2.3 G/DL (3.4-5.0); ANION GAP 9 (8-16); BLOOD UREA NITROGEN 39 MG/DL (7-18); BUN/CREATININE RATIO 12.1 (6.6-38.0); CALCIUM 8.6 MG/DL (8.5-10.1); CHLORIDE 104 MMOL/L (99-107); CREATININE 3.22 MG/DL (0.40-0.90); GLUCOSE 390 MG/DL (70-104); PHOSPHORUS 3.9 MG/DL (2.3-4.5); POTASSIUM 5.6 MMOL/L (3.5-5.1); SODIUM 132 MMOL/L (135-145); TOTAL CARBON DIOXIDE 19.3 MMOL/L (24-32); eGFR 14 ML/MIN
--- NOTE | 2019-10-04 11:47 | NUR ---
Initial: Pt admit with acute vascular occlusion in the LLE. Pt now s/p left leg iliofemoral popliteal tibial thrombectomy and 4-compartment fasciotomy. Pt with a wound VAC to groin. Pt with SANDRA and EF 25% with hx of cardiomyopathy per MD notes. Pt on a CHO controlled diet documented with 100% PO intake down to 25-50% PO intake at breakfast this morning. A1c is 9.9% which is stable since April of this year per records. Per physical assessment pt is A/O x 3 and confused. Pt would benefit from protein and DM educations once stable. No documented BM however pt receiving multiple bowel care medications. Will continue to follow closely. Recommendations: 1) Continue CHO controlled diet 2) Monitor need for additional protein/ONS 3) Routine bowel care 4) Scaled weights per rx 5) Protein and DM educations once stable Addendum: 10/04/19 at [address] Amended: Links added.
[2019-10-04 15:24] LABS: ALBUMIN 2.4 G/DL (3.4-5.0); ANION GAP 9 (8-16); BLOOD UREA NITROGEN 39 MG/DL (7-18); BUN/CREATININE RATIO 11.8 (6.6-38.0); CALCIUM 8.5 MG/DL (8.5-10.1); CHLORIDE 105 MMOL/L (99-107); CREATININE 3.31 MG/DL (0.40-0.90); GLUCOSE 212 MG/DL (70-104); PHOSPHORUS 3.9 MG/DL (2.3-4.5); POTASSIUM 4.9 MMOL/L (3.5-5.1); SODIUM 135 MMOL/L (135-145); TOTAL CARBON DIOXIDE 20.8 MMOL/L (24-32); eGFR 14 ML/MIN
[2019-10-04 15:27] LABS: TROPONIN I 1.92 NG/ML (0.0-0.05)
[2019-10-04] MEDS ORDERED: furosemide 20 MG/2 ML vial IV ONE (15:40)
[2019-10-04] MEDS: pravastatin 40mg tablet PO SCH (20:24)
[2019-10-04] MEDS: sennosides/docusate sodium tablet PO SCH (20:24)
[2019-10-04] MEDS: insulin glargine (Lantus) pen - multi-dose SQ SCH (22:19)
[2019-10-05] VITALS (23 sets, daily range): BP systolic 84–153; BP diastolic 38–93
--- NOTE | 2019-10-05 00:47 | NUR ---
troponin critical at 3.1, its trending up, Pt denies chest pain, Thiago Moncada notified. he said to check it again in two hours.
[2019-10-05] MEDS: HYDROmorphone/NS 1 mg/ml CADD 50 ML IV SCH ×12 (01:00→23:00)
[2019-10-05 03:40] LABS: BASOPHILS # (AUTO) 0.1 X10'3 (0-0.2); BASOPHILS % (AUTO) 0.6 % (0-1); EOSINOPHILS # (AUTO) 0.2 X10'3 (0-0.9); EOSINOPHILS % (AUTO) 2.1 % (0-6); HEMATOCRIT 30.3 % (35.0-45.0); HEMOGLOBIN 9.9 g/dl (12.0-16.0); MEAN CORPUSCULAR HEMOGLOBIN 30.7 PG (27.0-31.0); MEAN CORPUSCULAR HGB CONC 32.7 g/dL (33.0-36.5); MEAN CORPUSCULAR VOLUME 93.9 FL (78-98); MONOCYTES # (AUTO) 0.8 X10'3 (0-0.9); MONOCYTES % (AUTO) 8.6 % (2-12); NEUTROPHILS # (AUTO) 6.4 X10'3 (1.8-7.7); NEUTROPHILS % (AUTO) 67.7 % (42-75); PLATELET COUNT 171 X10'3 (140-440); RED BLOOD COUNT 3.23 X10'6 (4.20-5.60); RED CELL DISTRIBUTION WIDTH 14.9 % (11.5-14.5); WHITE BLOOD COUNT 9.5 X10'3 (4.5-11.0)
[2019-10-05 03:57] LABS: ALANINE AMINOTRANSFERASE 38 U/L (12-78); ALBUMIN 2.3 G/DL (3.4-5.0); ALBUMIN/GLOBULIN RATIO 0.7 (1.1-1.5); ALKALINE PHOSPHATASE 103 IU/L (46-116); ANION GAP 10 (8-16); ASPARTATE AMINO TRANSFERASE 252 U/L (10-37); BILIRUBIN,TOTAL 0.3 MG/DL (0.1-1.0); BLOOD UREA NITROGEN 42 MG/DL (7-18); BUN/CREATININE RATIO 11.7 (6.6-38.0); CHLORIDE 101 MMOL/L (99-107); CREATININE 3.58 MG/DL (0.40-0.90); GLUCOSE 161 MG/DL (70-104); MAGNESIUM 1.2 MG/DL (1.5-2.4); PHOSPHORUS 3.4 MG/DL (2.3-4.5); POTASSIUM 4.9 MMOL/L (3.5-5.1); SODIUM 134 MMOL/L (135-145); TOTAL CARBON DIOXIDE 23.1 MMOL/L (24-32); TOTAL PROTEIN 5.6 G/DL (6.4-8.2); eGFR 13 ML/MIN
--- NOTE | 2019-10-05 06:47 | NUR ---
Patient in room ICU 2041. I have received report from Aleksander HERNANDEZ and had the opportunity to ask questions and assume patient care.
[2019-10-05] MEDS: sodium bicarbonate (8.4%) inj. 150 MEQ in dextrose 5%-water 1,000 ML IV SCH ×2 (07:22→19:42)
--- NOTE | 2019-10-05 07:55 | NUR ---
Patient report given, questions answered & plan of care reviewed with Grace HERNANDEZ.
--- NOTE | 2019-10-05 08:11 | NUR ---
Patient in room ICU 2041. I have received report from DAVID George and had the opportunity to ask questions and assume patient care.
[2019-10-05] MEDS: famotidine 10mg tablet PO SCH ×2 (08:54→19:42)
[2019-10-05] MEDS: apixaban 5mg tablet PO SCH ×2 (08:54→19:42)
[2019-10-05] MEDS: nystatin 15 GM powder TP SCH ×3 (08:55→22:42)
[2019-10-05] MEDS: gabapentin 300mg capsule PO SCH (08:55)
[2019-10-05] MEDS: levoTHYROXINE 125mcg tablet PO SCH (08:55)
[2019-10-05] MEDS: docusate sod 100mg capsule PO SCH ×2 (08:55→19:42)
--- NOTE | 2019-10-05 08:56 | NUR ---
critical troponin of 2.34; primary RN, Grace, notified. Addendum: 10/05/19 at 1301 by Page Gomes RN MD informed within 30 min. no new orders at this time.
[2019-10-05] MEDS: insulin Lispro (HumaLOG) vial - multi-dose SQ SCH ×4 (09:07→21:13)
[2019-10-05] MEDS ORDERED: DOBUTamine-DoBUTrex 500mg/D5W 250 ML IV ONE (12:18)
[2019-10-05] MEDS: NORepinephrine 8mg/ 250ml NS 250 ML IV PRN (15:34)
--- NOTE | 2019-10-05 18:02 | NUR ---
redressed pt. R leg surgical site per MD consent.
--- NOTE | 2019-10-05 18:25 | NUR ---
Problems reprioritized. Patient report given, questions answered & plan of care reviewed with DAVID Harrison.
--- NOTE | 2019-10-05 18:30 | NUR ---
Patient in room ICU 2041. I have received report from DAVID Edwards and had the opportunity to ask questions and assume patient care.
[2019-10-05] MEDS: sennosides/docusate sodium tablet PO SCH (21:00)
[2019-10-05] MEDS: pravastatin 40mg tablet PO SCH (21:00)
[2019-10-05] MEDS: insulin glargine (Lantus) pen - multi-dose SQ SCH (21:12)
[2019-10-06] VITALS (23 sets, daily range): BP systolic 81–120; BP diastolic 43–69
[2019-10-06] MEDS: HYDROmorphone/NS 1 mg/ml CADD 50 ML IV SCH ×8 (01:00→17:00)
[2019-10-06 02:40] LABS: BASOPHILS % (AUTO) 0.3 % (0-1); EOSINOPHILS # (AUTO) 0.2 X10'3 (0-0.9); EOSINOPHILS % (AUTO) 2.2 % (0-6); HEMATOCRIT 27.7 % (35.0-45.0); HEMOGLOBIN 9.2 g/dl (12.0-16.0); LYMPHOCYTES # (AUTO) 1.3 X10'3 (1.1-4.8); LYMPHOCYTES % (AUTO) 16.4 % (21-51); MEAN CORPUSCULAR HEMOGLOBIN 30.7 PG (27.0-31.0); MEAN CORPUSCULAR HGB CONC 33.1 g/dL (33.0-36.5); MEAN CORPUSCULAR VOLUME 92.8 FL (78-98); MONOCYTES # (AUTO) 0.9 X10'3 (0-0.9); MONOCYTES % (AUTO) 11.1 % (2-12); NEUTROPHILS # (AUTO) 5.7 X10'3 (1.8-7.7); PLATELET COUNT 160 X10'3 (140-440); RED BLOOD COUNT 2.99 X10'6 (4.20-5.60); RED CELL DISTRIBUTION WIDTH 14.2 % (11.5-14.5); WHITE BLOOD COUNT 8.2 X10'3 (4.5-11.0)
[2019-10-06 03:06] LABS: ALANINE AMINOTRANSFERASE 26 U/L (12-78); ALBUMIN/GLOBULIN RATIO 0.6 (1.1-1.5); ALKALINE PHOSPHATASE 100 IU/L (46-116); ANION GAP 9 (8-16); ASPARTATE AMINO TRANSFERASE 170 U/L (10-37); BILIRUBIN,TOTAL 0.4 MG/DL (0.1-1.0); BLOOD UREA NITROGEN 46 MG/DL (7-18); CALCIUM 6.8 MG/DL (8.5-10.1); CHLORIDE 101 MMOL/L (99-107); CREATININE 3.84 MG/DL (0.40-0.90); GLUCOSE 208 MG/DL (70-104); MAGNESIUM 1.1 MG/DL (1.5-2.4); PHOSPHORUS 2.9 MG/DL (2.3-4.5); POTASSIUM 4.3 MMOL/L (3.5-5.1); SODIUM 135 MMOL/L (135-145); TOTAL CARBON DIOXIDE 24.9 MMOL/L (24-32); TOTAL PROTEIN 5.3 G/DL (6.4-8.2); eGFR 12 ML/MIN
[2019-10-06] MEDS: sodium bicarbonate (8.4%) inj. 150 MEQ in dextrose 5%-water 1,000 ML IV SCH ×2 (04:31→07:20)
--- NOTE | 2019-10-06 06:34 | NUR ---
Problems reprioritized. Patient report given, questions answered & plan of care reviewed with Art,RN.
[2019-10-06] MEDS: apixaban 5mg tablet PO SCH ×2 (07:42→21:37)
[2019-10-06] MEDS: docusate sod 100mg capsule PO SCH ×2 (07:42→21:37)
[2019-10-06] MEDS: famotidine 10mg tablet PO SCH ×2 (07:42→21:38)
[2019-10-06] MEDS: levoTHYROXINE 125mcg tablet PO SCH (07:42)
[2019-10-06] MEDS: gabapentin 300mg capsule PO SCH (07:42)
[2019-10-06] MEDS: nystatin 15 GM powder TP SCH ×3 (08:45→21:37)
[2019-10-06] MEDS: insulin Lispro (HumaLOG) vial - multi-dose SQ SCH ×2 (09:00→14:52)
--- NOTE | 2019-10-06 15:42 | NUR ---
Wound dressings changed.
[2019-10-06] MEDS: insulin glargine (Lantus) pen - multi-dose SQ SCH (21:00)
[2019-10-06] MEDS: pravastatin 40mg tablet PO SCH (21:38)
[2019-10-06] MEDS: sennosides/docusate sodium tablet PO SCH (21:38)
[2019-10-06 22:41] LABS: ALANINE AMINOTRANSFERASE 21 U/L (12-78); ALBUMIN/GLOBULIN RATIO 0.6 (1.1-1.5); ALKALINE PHOSPHATASE 95 IU/L (46-116); ANION GAP 5 (8-16); ASPARTATE AMINO TRANSFERASE 117 U/L (10-37); BILIRUBIN,TOTAL 0.4 MG/DL (0.1-1.0); BLOOD UREA NITROGEN 45 MG/DL (7-18); BUN/CREATININE RATIO 14.5 (6.6-38.0); CALCIUM 6.7 MG/DL (8.5-10.1); CHLORIDE 101 MMOL/L (99-107); GLUCOSE 109 MG/DL (70-104); MAGNESIUM 1.1 MG/DL (1.5-2.4); PHOSPHORUS 2.6 MG/DL (2.3-4.5); POTASSIUM 3.7 MMOL/L (3.5-5.1); SODIUM 136 MMOL/L (135-145); TOTAL CARBON DIOXIDE 30.2 MMOL/L (24-32); TOTAL PROTEIN 5.4 G/DL (6.4-8.2); eGFR 15 ML/MIN
[2019-10-06] MEDS ORDERED: magnesium 2GM in 50ml NS 50 ML IV ONE (23:15)
[2019-10-07] VITALS (32 sets, daily range): BP systolic 87–128; BP diastolic 39–71
[2019-10-07] MEDS: NORepinephrine 8mg/ 250ml NS 250 ML IV PRN ×3 (00:59→19:05)
[2019-10-07 03:39] LABS: BASOPHILS % (AUTO) 0.2 % (0-1); EOSINOPHILS # (AUTO) 0.2 X10'3 (0-0.9); EOSINOPHILS % (AUTO) 2.7 % (0-6); HEMOGLOBIN 9.2 g/dl (12.0-16.0); LYMPHOCYTES # (AUTO) 1.4 X10'3 (1.1-4.8); LYMPHOCYTES % (AUTO) 16.6 % (21-51); MEAN CORPUSCULAR HEMOGLOBIN 30.6 PG (27.0-31.0); MEAN CORPUSCULAR HGB CONC 32.9 g/dL (33.0-36.5); MEAN CORPUSCULAR VOLUME 92.9 FL (78-98); MEAN PLATELET VOLUME 9.6 FL (7.4-10.4); MONOCYTES # (AUTO) 0.9 X10'3 (0-0.9); MONOCYTES % (AUTO) 10.5 % (2-12); PLATELET COUNT 199 X10'3 (140-440); RED BLOOD COUNT 3.01 X10'6 (4.20-5.60); RED CELL DISTRIBUTION WIDTH 14.4 % (11.5-14.5); WHITE BLOOD COUNT 8.6 X10'3 (4.5-11.0)
[2019-10-07 03:42] LABS: ALANINE AMINOTRANSFERASE 21 U/L (12-78); ALBUMIN 1.9 G/DL (3.4-5.0); ALBUMIN/GLOBULIN RATIO 0.6 (1.1-1.5); ALKALINE PHOSPHATASE 95 IU/L (46-116); ANION GAP 3 (8-16); ASPARTATE AMINO TRANSFERASE 101 U/L (10-37); BILIRUBIN,TOTAL 0.5 MG/DL (0.1-1.0); BLOOD UREA NITROGEN 42 MG/DL (7-18); BUN/CREATININE RATIO 15.3 (6.6-38.0); CALCIUM 6.8 MG/DL (8.5-10.1); CHLORIDE 103 MMOL/L (99-107); CREATININE 2.74 MG/DL (0.40-0.90); GLUCOSE 155 MG/DL (70-104); MAGNESIUM 1.5 MG/DL (1.5-2.4); PHOSPHORUS 2.5 MG/DL (2.3-4.5); POTASSIUM 3.8 MMOL/L (3.5-5.1); SODIUM 139 MMOL/L (135-145); TOTAL CARBON DIOXIDE 33.2 MMOL/L (24-32); TOTAL PROTEIN 5.2 G/DL (6.4-8.2); eGFR 17 ML/MIN
[2019-10-07] MEDS ORDERED: famotidine 10mg tablet PO ONE (06:00)
[2019-10-07 06:56] LABS: PARTIAL THROMBOPLASTIN TIME 29 SECONDS (22-32)
[2019-10-07] MEDS: HYDROmorphone/NS 1 mg/ml CADD 50 ML IV SCH ×11 (07:00→23:00)
[2019-10-07] MEDS ORDERED: midazolam 2 mg/2 ml injection ONE (07:57)
[2019-10-07] MEDS ORDERED: fentaNYL/PF 50MCG/1 ML 2ML syringe ONE (07:57)
[2019-10-07] MEDS: famotidine 10mg tablet PO SCH ×2 (08:00→19:29)
[2019-10-07] MEDS: sodium bicarbonate (8.4%) inj. 150 MEQ in dextrose 5%-water 1,000 ML IV SCH (08:00)
[2019-10-07] MEDS ORDERED: DOBUTamine/D5W 500mg/250ml premix IV ONE (08:07)
[2019-10-07] MEDS ORDERED: calcium chloride 100 MG/1 ML inj IV ONE (08:07)
[2019-10-07] MEDS ORDERED: desflurane 240ml liquid inh. IH ONE (08:07)
[2019-10-07] MEDS ORDERED: NORepinephrine 8 MG in NS 250 ML BAG (32 mcg/ml) IV ONE (08:07)
[2019-10-07] MEDS ORDERED: propofol inj 20 ML IV ONE (08:13)
[2019-10-07] MEDS ORDERED: ringers solution, lacted 1,000 ML IV SCH (08:41)
[2019-10-07] MEDS ORDERED: proCHLORperazine 10 MG/2 ml inj IV PRN (08:45)
[2019-10-07] MEDS ORDERED: meperidine/PF 25mg/ml syringe IV PRN ×3 (08:45)
[2019-10-07] MEDS ORDERED: ondansetron/PF 4mg/2ml inj IV PRN (08:45)
[2019-10-07] MEDS: ondansetron/PF 4mg/2ml inj IV PRN (09:14)
[2019-10-07] MEDS: apixaban 5mg tablet PO SCH ×2 (09:45→19:28)
[2019-10-07] MEDS: nystatin 15 GM powder TP SCH ×3 (09:45→21:00)
[2019-10-07] MEDS: levoTHYROXINE 125mcg tablet PO SCH (09:45)
[2019-10-07] MEDS: gabapentin 300mg capsule PO SCH (09:45)
[2019-10-07] MEDS: docusate sod 100mg capsule PO SCH ×2 (09:45→19:28)
[2019-10-07] MEDS: DOBUTamine-DoBUTrex 500mg/D5W 250 ML IV PRN (11:42)
--- NOTE | 2019-10-07 12:24 | NUR ---
Reassessment: Pt seen by RD for written/verbal high protein/DM eds w/ RD contact information provided. Pt is agreeable to Seth smoothie BIDBD; strawberry at breakfast/banana at dinner. notified. Pt s/p OR this AM for wound close s/p prior fasciotomy. PO decreased recent meals 50-75% avg down from 75-100% initial. No BM yet this admit receiving routine colace and senna. Will continue to monitor for additional protein needs post-op. Recommendations: 1) Continue CHO controlled diet 2) Seth smoothie BIDBD for wound; strawberry breakfast/banana dinner 3) Routine bowel care 4) weekly wts Addendum: 10/07/19 at [address] Amended: Links added.
[2019-10-07] MEDS: insulin Lispro (HumaLOG) vial - multi-dose SQ SCH ×2 (13:59→19:20)
[2019-10-07] MEDS: JUVEN Smoothie Arginine/Glut./Ca2+Bmb (Juven 19.3pkt) 240ml cup PO SCH (17:30)
--- NOTE | 2019-10-07 18:15 | NUR ---
Problems reprioritized. Patient report given Martín (DAVID), questions answered & plan of care reviewed with .
[2019-10-07] MEDS: pravastatin 40mg tablet PO SCH (19:28)
[2019-10-07] MEDS: sennosides/docusate sodium tablet PO SCH (19:29)
[2019-10-07] MEDS: insulin glargine (Lantus) pen - multi-dose SQ SCH (21:37)
[2019-10-08] VITALS (23 sets, daily range): BP systolic 75–124; BP diastolic 36–106
[2019-10-08] MEDS: HYDROmorphone/NS 1 mg/ml CADD 50 ML IV SCH ×11 (01:00→23:00)
[2019-10-08] MEDS: NORepinephrine 8mg/ 250ml NS 250 ML IV PRN ×2 (01:40→12:07)
--- NOTE | 2019-10-08 02:19 | NUR ---
patients Cadd pump was leaking at the cassette site. pump stopped, cassette detatched and Pharmacy notified. pharmacy to replace defective cassette chema
[2019-10-08 03:00] LABS: BASOPHILS # (AUTO) 0.1 X10'3 (0-0.2); BASOPHILS % (AUTO) 0.7 % (0-1); EOSINOPHILS # (AUTO) 0.2 X10'3 (0-0.9); EOSINOPHILS % (AUTO) 2.8 % (0-6); HEMATOCRIT 28.8 % (35.0-45.0); HEMOGLOBIN 9.4 g/dl (12.0-16.0); LYMPHOCYTES # (AUTO) 1.6 X10'3 (1.1-4.8); LYMPHOCYTES % (AUTO) 19.5 % (21-51); MEAN CORPUSCULAR HEMOGLOBIN 30.5 PG (27.0-31.0); MEAN CORPUSCULAR HGB CONC 32.6 g/dL (33.0-36.5); MEAN CORPUSCULAR VOLUME 93.6 FL (78-98); MEAN PLATELET VOLUME 9.9 FL (7.4-10.4); NEUTROPHILS # (AUTO) 5.3 X10'3 (1.8-7.7); PLATELET COUNT 224 X10'3 (140-440); RED BLOOD COUNT 3.08 X10'6 (4.20-5.60); RED CELL DISTRIBUTION WIDTH 14.4 % (11.5-14.5); WHITE BLOOD COUNT 8.2 X10'3 (4.5-11.0)
[2019-10-08 03:09] LABS: ALANINE AMINOTRANSFERASE 17 U/L (12-78); ALBUMIN 1.8 G/DL (3.4-5.0); ALBUMIN/GLOBULIN RATIO 0.5 (1.1-1.5); ALKALINE PHOSPHATASE 85 IU/L (46-116); ANION GAP 3 (8-16); ASPARTATE AMINO TRANSFERASE 60 U/L (10-37); BILIRUBIN,TOTAL 0.4 MG/DL (0.1-1.0); BLOOD UREA NITROGEN 27 MG/DL (7-18); BUN/CREATININE RATIO 14.5 (6.6-38.0); CHLORIDE 107 MMOL/L (99-107); CREATININE 1.86 MG/DL (0.40-0.90); GLUCOSE 103 MG/DL (70-104); MAGNESIUM 1.4 MG/DL (1.5-2.4); PHOSPHORUS 2.4 MG/DL (2.3-4.5); POTASSIUM 3.4 MMOL/L (3.5-5.1); SODIUM 142 MMOL/L (135-145); TOTAL CARBON DIOXIDE 32.1 MMOL/L (24-32); TOTAL PROTEIN 5.3 G/DL (6.4-8.2); eGFR 27 ML/MIN
--- NOTE | 2019-10-08 06:31 | NUR ---
report given and care assumed by Viola HERNANDEZ.
--- NOTE | 2019-10-08 06:32 | NUR ---
Patient in room ICU 2041. I have received report from Martín HERNANDEZ and had the opportunity to ask questions and assume patient care.
[2019-10-08] MEDS: JUVEN Smoothie Arginine/Glut./Ca2+Bmb (Juven 19.3pkt) 240ml cup PO SCH ×2 (07:30→17:30)
[2019-10-08] MEDS: gabapentin 300mg capsule PO SCH (07:52)
[2019-10-08] MEDS: apixaban 5mg tablet PO SCH ×2 (07:53→20:10)
[2019-10-08] MEDS: docusate sod 100mg capsule PO SCH ×2 (07:53→20:10)
[2019-10-08] MEDS: levoTHYROXINE 125mcg tablet PO SCH (07:53)
[2019-10-08] MEDS: nystatin 15 GM powder TP SCH ×3 (07:53→20:11)
[2019-10-08] MEDS: famotidine 10mg tablet PO SCH ×2 (07:53→20:10)
[2019-10-08] MEDS: insulin Lispro (HumaLOG) vial - multi-dose SQ SCH ×2 (13:22→20:00)
[2019-10-08 14:50] LABS: OXYGEN SATURATION (MIXED VEN) 46.4 % (60-80); PO2 MIXED VENOUS (TEMP COR) 25.2 mmHg (35-46)
[2019-10-08] MEDS: DOBUTamine-DoBUTrex 500mg/D5W 250 ML IV PRN (16:47)
[2019-10-08] MEDS: sennosides/docusate sodium tablet PO SCH (20:09)
[2019-10-08] MEDS: pravastatin 40mg tablet PO SCH (20:10)
[2019-10-08] MEDS: insulin glargine (Lantus) pen - multi-dose SQ SCH (21:29)
[2019-10-09] VITALS (23 sets, daily range): BP systolic 78–114; BP diastolic 43–74
[2019-10-09] MEDS: HYDROmorphone/NS 1 mg/ml CADD 50 ML IV SCH ×6 (03:00→13:00)
[2019-10-09 03:02] LABS: BASOPHILS # (AUTO) 0.1 X10'3 (0-0.2); BASOPHILS % (AUTO) 0.9 % (0-1); EOSINOPHILS # (AUTO) 0.3 X10'3 (0-0.9); EOSINOPHILS % (AUTO) 4.1 % (0-6); HEMOGLOBIN 9.3 g/dl (12.0-16.0); LYMPHOCYTES # (AUTO) 1.6 X10'3 (1.1-4.8); MEAN CORPUSCULAR HEMOGLOBIN 30.2 PG (27.0-31.0); MEAN CORPUSCULAR VOLUME 94.4 FL (78-98); MEAN PLATELET VOLUME 9.6 FL (7.4-10.4); NEUTROPHILS # (AUTO) 4.8 X10'3 (1.8-7.7); PLATELET COUNT 263 X10'3 (140-440); RED BLOOD COUNT 3.07 X10'6 (4.20-5.60); RED CELL DISTRIBUTION WIDTH 14.6 % (11.5-14.5); WHITE BLOOD COUNT 7.8 X10'3 (4.5-11.0)
[2019-10-09 03:19] LABS: ALANINE AMINOTRANSFERASE 12 U/L (12-78); ALBUMIN 1.8 G/DL (3.4-5.0); ALBUMIN/GLOBULIN RATIO 0.5 (1.1-1.5); ALKALINE PHOSPHATASE 80 IU/L (46-116); ANION GAP 3 (8-16); ASPARTATE AMINO TRANSFERASE 36 U/L (10-37); BILIRUBIN,TOTAL 0.5 MG/DL (0.1-1.0); BLOOD UREA NITROGEN 18 MG/DL (7-18); BUN/CREATININE RATIO 12.9 (6.6-38.0); CALCIUM 7.8 MG/DL (8.5-10.1); CHLORIDE 106 MMOL/L (99-107); CREATININE 1.39 MG/DL (0.40-0.90); GLUCOSE 97 MG/DL (70-104); MAGNESIUM 1.4 MG/DL (1.5-2.4); POTASSIUM 3.5 MMOL/L (3.5-5.1); SODIUM 142 MMOL/L (135-145); TOTAL CARBON DIOXIDE 33.3 MMOL/L (24-32); TOTAL PROTEIN 5.4 G/DL (6.4-8.2); eGFR 38 ML/MIN
[2019-10-09] MEDS: NORepinephrine 8mg/ 250ml NS 250 ML IV PRN ×2 (05:10→16:54)
--- NOTE | 2019-10-09 06:24 | NUR ---
Problems reprioritized. Patient report given, questions answered & plan of care reviewed with Art RN.
[2019-10-09] MEDS: ondansetron/PF 4mg/2ml inj IV PRN ×2 (06:37→12:10)
[2019-10-09] MEDS: JUVEN Smoothie Arginine/Glut./Ca2+Bmb (Juven 19.3pkt) 240ml cup PO SCH ×2 (07:30→17:30)
[2019-10-09] MEDS: nystatin 15 GM powder TP SCH ×3 (07:40→20:31)
[2019-10-09] MEDS: famotidine 10mg tablet PO SCH ×2 (07:40→20:30)
[2019-10-09] MEDS: gabapentin 300mg capsule PO SCH (07:40)
[2019-10-09] MEDS: apixaban 5mg tablet PO SCH ×2 (07:40→20:31)
[2019-10-09] MEDS: docusate sod 100mg capsule PO SCH ×2 (07:40→20:31)
[2019-10-09] MEDS: levoTHYROXINE 125mcg tablet PO SCH (07:40)
[2019-10-09] MEDS ORDERED: magnesium 4gm in 100ml NS 100 ML IV PRN (08:40)
[2019-10-09] MEDS ORDERED: potassium Cl 20mEq/100mL bag 100 ML IV PRN (08:40)
[2019-10-09] MEDS ORDERED: sodium phosphate inj. 30 MMOL in dextrose 5%-water 250 ML IV PRN (08:40)
[2019-10-09] MEDS ORDERED: magnesium 2GM in 50ml NS 50 ML IV PRN (08:40)
[2019-10-09] MEDS ORDERED: Neutra Phos packet PO PRN (08:40)
[2019-10-09] MEDS ORDERED: sodium phosphate inj. 15 MMOL in dextrose 5%-water 250 ML IV PRN (08:40)
[2019-10-09] MEDS ORDERED: HYDROcodone/acetaminophen 10/325mg tab PO PRN (08:40)
[2019-10-09] MEDS ORDERED: potassium Cl 20 mEq SR tablet PO PRN ×2 (08:40)
[2019-10-09] MEDS: insulin Lispro (HumaLOG) vial - multi-dose SQ SCH ×3 (09:27→18:59)
--- NOTE | 2019-10-09 10:55 | NUR ---
Physical therapy is working with pt.
[2019-10-09] MEDS: traMADol 50MG tablet PO SCH ×2 (14:17→20:29)
--- NOTE | 2019-10-09 18:30 | NUR ---
Patient in room ICU 2041. I have received report from Art RN and had the opportunity to ask questions and assume patient care.
[2019-10-09] MEDS: fludrocortisone acetate 0.1mg tablet PO SCH (20:29)
[2019-10-09] MEDS: sennosides/docusate sodium tablet PO SCH (20:31)
[2019-10-09] MEDS: pravastatin 40mg tablet PO SCH (20:32)
[2019-10-09] MEDS: insulin glargine (Lantus) pen - multi-dose SQ SCH (20:42)
[2019-10-10] VITALS (25 sets, daily range): BP systolic 79–137; BP diastolic 42–73
[2019-10-10] MEDS: traMADol 50MG tablet PO SCH ×4 (02:45→20:22)
[2019-10-10] MEDS: ondansetron/PF 4mg/2ml inj IV PRN (02:45)
[2019-10-10 02:53] LABS: BASOPHILS % (AUTO) 0.5 % (0-1); EOSINOPHILS # (AUTO) 0.3 X10'3 (0-0.9); EOSINOPHILS % (AUTO) 4.6 % (0-6); HEMATOCRIT 28.5 % (35.0-45.0); HEMOGLOBIN 9.1 g/dl (12.0-16.0); LYMPHOCYTES # (AUTO) 1.8 X10'3 (1.1-4.8); LYMPHOCYTES % (AUTO) 24.8 % (21-51); MEAN CORPUSCULAR HEMOGLOBIN 30.2 PG (27.0-31.0); MEAN CORPUSCULAR HGB CONC 31.9 g/dL (33.0-36.5); MEAN CORPUSCULAR VOLUME 94.7 FL (78-98); MEAN PLATELET VOLUME 9.7 FL (7.4-10.4); MONOCYTES # (AUTO) 0.9 X10'3 (0-0.9); MONOCYTES % (AUTO) 13.1 % (2-12); NEUTROPHILS # (AUTO) 4.1 X10'3 (1.8-7.7); PLATELET COUNT 261 X10'3 (140-440); RED BLOOD COUNT 3.01 X10'6 (4.20-5.60); RED CELL DISTRIBUTION WIDTH 14.4 % (11.5-14.5); WHITE BLOOD COUNT 7.2 X10'3 (4.5-11.0)
[2019-10-10 03:07] LABS: ALANINE AMINOTRANSFERASE 13 U/L (12-78); ALBUMIN 1.8 G/DL (3.4-5.0); ALBUMIN/GLOBULIN RATIO 0.5 (1.1-1.5); ALKALINE PHOSPHATASE 76 IU/L (46-116); ANION GAP 5 (8-16); ASPARTATE AMINO TRANSFERASE 32 U/L (10-37); BILIRUBIN,TOTAL 0.4 MG/DL (0.1-1.0); BLOOD UREA NITROGEN 18 MG/DL (7-18); BUN/CREATININE RATIO 14.1 (6.6-38.0); CALCIUM 8.2 MG/DL (8.5-10.1); CHLORIDE 106 MMOL/L (99-107); CREATININE 1.28 MG/DL (0.40-0.90); GLUCOSE 71 MG/DL (70-104); MAGNESIUM 1.5 MG/DL (1.5-2.4); PHOSPHORUS 3.7 MG/DL (2.3-4.5); POTASSIUM 3.7 MMOL/L (3.5-5.1); SODIUM 141 MMOL/L (135-145); TOTAL CARBON DIOXIDE 29.7 MMOL/L (24-32); TOTAL PROTEIN 5.7 G/DL (6.4-8.2); eGFR 42 ML/MIN
--- NOTE | 2019-10-10 06:10 | NUR ---
Received report from Sheila HERNANDEZ, [facility].
[2019-10-10] MEDS: K and/or MAG REPLACEMENT MC SCH (08:00)
[2019-10-10] MEDS: docusate sod 100mg capsule PO SCH ×2 (08:26→20:22)
[2019-10-10] MEDS: levoTHYROXINE 125mcg tablet PO SCH (08:26)
[2019-10-10] MEDS: apixaban 5mg tablet PO SCH ×2 (08:26→20:22)
[2019-10-10] MEDS: famotidine 10mg tablet PO SCH ×2 (08:27→20:22)
[2019-10-10] MEDS: fludrocortisone acetate 0.1mg tablet PO SCH ×2 (08:27→20:22)
[2019-10-10] MEDS: nystatin 15 GM powder TP SCH ×3 (08:27→21:50)
[2019-10-10] MEDS: gabapentin 300mg capsule PO SCH (08:27)
[2019-10-10] MEDS: JUVEN Smoothie Arginine/Glut./Ca2+Bmb (Juven 19.3pkt) 240ml cup PO SCH ×2 (08:28→17:30)
[2019-10-10] MEDS: insulin Lispro (HumaLOG) vial - multi-dose SQ SCH ×3 (08:47→18:44)
[2019-10-10] MEDS: lactulose 20gm/30ml cup PO SCH ×3 (08:59→20:22)
--- NOTE | 2019-10-10 14:23 | NUR ---
PICC Line Inserted in Right Upper Arm (Basilic). Double Lumen, 5 [place]. REF [id number], LOT [id number], Exp. 06/18/20
--- NOTE | 2019-10-10 15:09 | NUR ---
PLAN IS FOR PATIENT TO TRANSFER TO [facility], CASE MANAGEMENT INFORMED THIS NURSE THAT NO BEDS WERE AVAILABLE TODAY. PICC LINE HAS BEEN PLACED AND LEVOPHED IV WILL BE MOVED OVER FROM CVL TO PICC LINE.
--- NOTE | 2019-10-10 18:20 | NUR ---
GAVE REPORT TO POOJA HERNANDEZ, TRANSFERRED CARE.
[2019-10-10] MEDS: pravastatin 40mg tablet PO SCH (20:21)
[2019-10-10] MEDS: sennosides/docusate sodium tablet PO SCH (20:22)
[2019-10-10] MEDS: insulin glargine (Lantus) pen - multi-dose SQ SCH (21:00)
[2019-10-11] VITALS (24 sets, daily range): BP systolic 80–102; BP diastolic 50–67
[2019-10-11] MEDS: lactulose 20gm/30ml cup PO SCH ×4 (02:14→20:35)
[2019-10-11] MEDS: traMADol 50MG tablet PO SCH ×4 (02:14→20:35)
[2019-10-11 03:13] LABS: BASOPHILS # (AUTO) 0.1 X10'3 (0-0.2); BASOPHILS % (AUTO) 0.9 % (0-1); EOSINOPHILS # (AUTO) 0.3 X10'3 (0-0.9); HEMATOCRIT 28.3 % (35.0-45.0); HEMOGLOBIN 8.9 g/dl (12.0-16.0); LYMPHOCYTES # (AUTO) 1.6 X10'3 (1.1-4.8); LYMPHOCYTES % (AUTO) 22.9 % (21-51); MEAN CORPUSCULAR HEMOGLOBIN 29.9 PG (27.0-31.0); MEAN CORPUSCULAR HGB CONC 31.5 g/dL (33.0-36.5); MEAN CORPUSCULAR VOLUME 94.9 FL (78-98); MEAN PLATELET VOLUME 9.9 FL (7.4-10.4); MONOCYTES # (AUTO) 0.8 X10'3 (0-0.9); MONOCYTES % (AUTO) 11.1 % (2-12); NEUTROPHILS # (AUTO) 4.1 X10'3 (1.8-7.7); NEUTROPHILS % (AUTO) 61.1 % (42-75); PLATELET COUNT 274 X10'3 (140-440); RED BLOOD COUNT 2.99 X10'6 (4.20-5.60); RED CELL DISTRIBUTION WIDTH 14.2 % (11.5-14.5); WHITE BLOOD COUNT 6.8 X10'3 (4.5-11.0)
[2019-10-11 03:36] LABS: ALANINE AMINOTRANSFERASE 12 U/L (12-78); ALBUMIN 1.8 G/DL (3.4-5.0); ALBUMIN/GLOBULIN RATIO 0.5 (1.1-1.5); ALKALINE PHOSPHATASE 78 IU/L (46-116); ANION GAP 8 (8-16); ASPARTATE AMINO TRANSFERASE 22 U/L (10-37); BILIRUBIN,TOTAL 0.3 MG/DL (0.1-1.0); BLOOD UREA NITROGEN 21 MG/DL (7-18); BUN/CREATININE RATIO 14.3 (6.6-38.0); CALCIUM 8.1 MG/DL (8.5-10.1); CHLORIDE 101 MMOL/L (99-107); CREATININE 1.47 MG/DL (0.40-0.90); GLUCOSE 122 MG/DL (70-104); MAGNESIUM 1.3 MG/DL (1.5-2.4); PHOSPHORUS 4.1 MG/DL (2.3-4.5); POTASSIUM 3.5 MMOL/L (3.5-5.1); SODIUM 138 MMOL/L (135-145); TOTAL CARBON DIOXIDE 29.5 MMOL/L (24-32); TOTAL PROTEIN 5.7 G/DL (6.4-8.2); eGFR 36 ML/MIN
--- NOTE | 2019-10-11 06:36 | NUR ---
REPORT RECEIVED FROM POOJA HERNANDEZ
[2019-10-11] MEDS: JUVEN Smoothie Arginine/Glut./Ca2+Bmb (Juven 19.3pkt) 240ml cup PO SCH ×2 (07:30→17:30)
[2019-10-11] MEDS: levoTHYROXINE 125mcg tablet PO SCH (07:46)
[2019-10-11] MEDS: gabapentin 300mg capsule PO SCH (07:46)
[2019-10-11] MEDS: docusate sod 100mg capsule PO SCH ×2 (07:47→20:34)
[2019-10-11] MEDS: famotidine 10mg tablet PO SCH ×2 (07:47→20:36)
[2019-10-11] MEDS: apixaban 5mg tablet PO SCH ×2 (07:47→20:35)
[2019-10-11] MEDS: fludrocortisone acetate 0.1mg tablet PO SCH ×2 (07:47→20:34)
[2019-10-11] MEDS: K and/or MAG REPLACEMENT MC SCH (08:00)
[2019-10-11] MEDS: nystatin 15 GM powder TP SCH ×3 (08:00→20:43)
[2019-10-11] MEDS: ondansetron/PF 4mg/2ml inj IV PRN ×2 (08:26→20:45)
[2019-10-11] MEDS: insulin Lispro (HumaLOG) vial - multi-dose SQ SCH ×3 (08:31→20:54)
--- NOTE | 2019-10-11 11:55 | NUR ---
Reassessment: Pt PO fluctuating 50-75% avg meals though refused this AM. Refused past 2 Seth smoothies. RN reports pt has had BM though no documented BM's in EMR this admit 9 days. Is receiving routine colace, senna, and lactulose was held this AM per EMR. Hopefully constipation resolution. Constipation likely to impact PO as well though pt reports not liking generic ONS options during prior RD visit for protein ed. Will continue to monitor for additional protein needs. Recommendations: 1) Continue CHO controlled diet; encourage PO 2) Seth smoothie BIDBD for wound; strawberry breakfast/banana dinner 3) Routine bowel care 4) weekly wts Addendum: 10/11/19 at [address] Amended: Links added.
[2019-10-11] MEDS: proCHLORperazine 10mg tablet PO PRN (17:35)
[2019-10-11] MEDS: magnesium Cl slow-release 64mg tablet PO PRN (17:35)
--- NOTE | 2019-10-11 18:30 | NUR ---
Patient in room ICU 2041. I have received report from DAVID Varela and had the opportunity to ask questions and assume patient care.
[2019-10-11] MEDS: sennosides/docusate sodium tablet PO SCH (20:35)
[2019-10-11] MEDS: pravastatin 40mg tablet PO SCH (20:35)
[2019-10-11] MEDS: insulin glargine (Lantus) pen - multi-dose SQ SCH (20:52)
[2019-10-12] VITALS (25 sets, daily range): BP systolic 80–118; BP diastolic 37–64
[2019-10-12] MEDS: lactulose 20gm/30ml cup PO SCH ×5 (01:49→20:00)
[2019-10-12] MEDS: traMADol 50MG tablet PO SCH ×4 (01:49→20:23)
[2019-10-12 03:11] LABS: BASOPHILS # (AUTO) 0.1 X10'3 (0-0.2); BASOPHILS % (AUTO) 0.9 % (0-1); EOSINOPHILS # (AUTO) 0.2 X10'3 (0-0.9); EOSINOPHILS % (AUTO) 2.9 % (0-6); HEMATOCRIT 26.5 % (35.0-45.0); HEMOGLOBIN 8.5 g/dl (12.0-16.0); LYMPHOCYTES # (AUTO) 1.8 X10'3 (1.1-4.8); LYMPHOCYTES % (AUTO) 25.4 % (21-51); MEAN CORPUSCULAR HEMOGLOBIN 30.2 PG (27.0-31.0); MEAN CORPUSCULAR VOLUME 94.4 FL (78-98); MEAN PLATELET VOLUME 10.2 FL (7.4-10.4); MONOCYTES # (AUTO) 0.6 X10'3 (0-0.9); MONOCYTES % (AUTO) 8.9 % (2-12); NEUTROPHILS # (AUTO) 4.4 X10'3 (1.8-7.7); NEUTROPHILS % (AUTO) 61.9 % (42-75); PLATELET COUNT 263 X10'3 (140-440); RED BLOOD COUNT 2.81 X10'6 (4.20-5.60); RED CELL DISTRIBUTION WIDTH 14.4 % (11.5-14.5); WHITE BLOOD COUNT 7.2 X10'3 (4.5-11.0)
[2019-10-12] MEDS: ondansetron/PF 4mg/2ml inj IV PRN ×3 (03:21→18:44)
[2019-10-12 03:25] LABS: ALANINE AMINOTRANSFERASE 13 U/L (12-78); ALBUMIN 1.8 G/DL (3.4-5.0); ALBUMIN/GLOBULIN RATIO 0.4 (1.1-1.5); ALKALINE PHOSPHATASE 83 IU/L (46-116); ANION GAP 7 (8-16); ASPARTATE AMINO TRANSFERASE 22 U/L (10-37); BILIRUBIN,TOTAL 0.4 MG/DL (0.1-1.0); BLOOD UREA NITROGEN 22 MG/DL (7-18); BUN/CREATININE RATIO 13.7 (6.6-38.0); CALCIUM 8.3 MG/DL (8.5-10.1); CHLORIDE 101 MMOL/L (99-107); CREATININE 1.61 MG/DL (0.40-0.90); GLUCOSE 133 MG/DL (70-104); MAGNESIUM 1.4 MG/DL (1.5-2.4); PHOSPHORUS 4.2 MG/DL (2.3-4.5); SODIUM 137 MMOL/L (135-145); TOTAL CARBON DIOXIDE 28.8 MMOL/L (24-32); TOTAL PROTEIN 6.2 G/DL (6.4-8.2); eGFR 32 ML/MIN
--- NOTE | 2019-10-12 06:31 | NUR ---
Problems reprioritized. Patient report given, questions answered & plan of care reviewed with DAVID Nj.
--- NOTE | 2019-10-12 06:47 | NUR ---
Patient in room ICU 2041. I have received report from Christy HERNANDEZ and had the opportunity to ask questions and assume patient care.
[2019-10-12] MEDS: magnesium Cl slow-release 64mg tablet PO PRN (07:19)
[2019-10-12] MEDS: levoTHYROXINE 125mcg tablet PO SCH (07:20)
[2019-10-12] MEDS: proCHLORperazine 10mg tablet PO PRN (07:20)
[2019-10-12] MEDS: docusate sod 100mg capsule PO SCH ×2 (07:20→20:24)
[2019-10-12] MEDS: famotidine 10mg tablet PO SCH ×2 (07:20→20:22)
[2019-10-12] MEDS: fludrocortisone acetate 0.1mg tablet PO SCH ×2 (07:22→20:22)
[2019-10-12] MEDS: gabapentin 300mg capsule PO SCH (07:22)
[2019-10-12] MEDS: nystatin 15 GM powder TP SCH ×3 (07:22→20:23)
[2019-10-12] MEDS: apixaban 5mg tablet PO SCH ×2 (07:22→20:23)
[2019-10-12] MEDS: JUVEN Smoothie Arginine/Glut./Ca2+Bmb (Juven 19.3pkt) 240ml cup PO SCH ×2 (07:30→17:30)
[2019-10-12] MEDS: K and/or MAG REPLACEMENT MC SCH (08:00)
--- NOTE | 2019-10-12 08:00 | NUR ---
Pt is refusing Lactulose because she states it makes her extremely nauseous and has caused her to vomit. She states she thinks and enema would work better. Nurse will request Enema order from .
[2019-10-12] MEDS ORDERED: mineral oil 133ml enema RC ONE (10:20)
[2019-10-12] MEDS: insulin Lispro (HumaLOG) vial - multi-dose SQ SCH ×2 (13:30→20:35)
--- NOTE | 2019-10-12 16:17 | NUR ---
Call placed to Dr Watkins due to pt only having 200 ml urine output today thus far and she id Addendum: 10/12/19 at 1619 by Ondina Lambert RN CONTINUED: Pt has had very little po intake as well. Orders obtained.
[2019-10-12] MEDS ORDERED: normal saline 500ml IV soln 500 ML IV ONE (16:35)
[2019-10-12] MEDS: DOBUTamine-DoBUTrex 500mg/D5W 250 ML IV PRN (17:08)
[2019-10-12] MEDS: NORepinephrine 8mg/ 250ml NS 250 ML IV PRN (18:37)
--- NOTE | 2019-10-12 18:39 | NUR ---
Problems reprioritized. Patient report given, questions answered & plan of care reviewed with Christy HERNANDEZ.
[2019-10-12] MEDS: sennosides/docusate sodium tablet PO SCH (20:22)
[2019-10-12] MEDS: pravastatin 40mg tablet PO SCH (20:23)
[2019-10-12] MEDS: insulin glargine (Lantus) pen - multi-dose SQ SCH (20:36)
--- NOTE | 2019-10-12 23:46 | NUR ---
Patient in room ICU 2041. I have received report from DAVID Nj and had the opportunity to ask questions and assume patient care.
[2019-10-13] VITALS (23 sets, daily range): BP systolic 81–108; BP diastolic 42–67
[2019-10-13] MEDS: ondansetron/PF 4mg/2ml inj IV PRN ×3 (01:02→15:46)
[2019-10-13] MEDS: lactulose 20gm/30ml cup PO SCH ×4 (02:00→19:32)
[2019-10-13] MEDS: traMADol 50MG tablet PO SCH ×4 (02:10→19:32)
[2019-10-13 04:30] LABS: BASOPHILS # (AUTO) 0.1 X10'3 (0-0.2); BASOPHILS % (AUTO) 0.9 % (0-1); EOSINOPHILS # (AUTO) 0.2 X10'3 (0-0.9); EOSINOPHILS % (AUTO) 3.5 % (0-6); HEMATOCRIT 26.7 % (35.0-45.0); HEMOGLOBIN 8.5 g/dl (12.0-16.0); LYMPHOCYTES # (AUTO) 1.3 X10'3 (1.1-4.8); LYMPHOCYTES % (AUTO) 20.5 % (21-51); MEAN CORPUSCULAR HEMOGLOBIN 30.1 PG (27.0-31.0); MONOCYTES # (AUTO) 0.5 X10'3 (0-0.9); MONOCYTES % (AUTO) 8.4 % (2-12); NEUTROPHILS # (AUTO) 4.2 X10'3 (1.8-7.7); NEUTROPHILS % (AUTO) 66.7 % (42-75); PLATELET COUNT 259 X10'3 (140-440); RED BLOOD COUNT 2.84 X10'6 (4.20-5.60); RED CELL DISTRIBUTION WIDTH 14.4 % (11.5-14.5); WHITE BLOOD COUNT 6.3 X10'3 (4.5-11.0)
[2019-10-13 04:38] LABS: ALANINE AMINOTRANSFERASE 10 U/L (12-78); ALBUMIN 1.8 G/DL (3.4-5.0); ALBUMIN/GLOBULIN RATIO 0.5 (1.1-1.5); ALKALINE PHOSPHATASE 80 IU/L (46-116); ANION GAP 3 (8-16); ASPARTATE AMINO TRANSFERASE 15 U/L (10-37); BILIRUBIN,TOTAL 0.3 MG/DL (0.1-1.0); BLOOD UREA NITROGEN 23 MG/DL (7-18); CALCIUM 7.9 MG/DL (8.5-10.1); CHLORIDE 101 MMOL/L (99-107); CREATININE 1.53 MG/DL (0.40-0.90); GLUCOSE 115 MG/DL (70-104); MAGNESIUM 1.5 MG/DL (1.5-2.4); PHOSPHORUS 3.3 MG/DL (2.3-4.5); POTASSIUM 3.5 MMOL/L (3.5-5.1); SODIUM 135 MMOL/L (135-145); TOTAL CARBON DIOXIDE 30.8 MMOL/L (24-32); TOTAL PROTEIN 5.5 G/DL (6.4-8.2); eGFR 34 ML/MIN
[2019-10-13] MEDS: proCHLORperazine 10mg tablet PO PRN ×2 (05:36→13:50)
--- NOTE | 2019-10-13 06:15 | NUR ---
Patient in room ICU 2041. I have received report from Christy HERNANDEZ and had the opportunity to ask questions and assume patient care.
--- NOTE | 2019-10-13 06:22 | NUR ---
Problems reprioritized. Patient report given, questions answered & plan of care reviewed with DAVID Barnett.
[2019-10-13] MEDS: JUVEN Smoothie Arginine/Glut./Ca2+Bmb (Juven 19.3pkt) 240ml cup PO SCH ×2 (07:30→17:31)
[2019-10-13] MEDS: famotidine 10mg tablet PO SCH ×2 (08:05→19:31)
[2019-10-13] MEDS: levoTHYROXINE 125mcg tablet PO SCH (08:05)
[2019-10-13] MEDS: fludrocortisone acetate 0.1mg tablet PO SCH ×2 (08:05→19:31)
[2019-10-13] MEDS: apixaban 5mg tablet PO SCH ×2 (08:05→19:31)
[2019-10-13] MEDS: nystatin 15 GM powder TP SCH ×3 (08:05→21:46)
[2019-10-13] MEDS: gabapentin 300mg capsule PO SCH (08:06)
[2019-10-13] MEDS: docusate sod 100mg capsule PO SCH ×2 (08:06→19:32)
[2019-10-13] MEDS: insulin Lispro (HumaLOG) vial - multi-dose SQ SCH ×3 (09:10→19:35)
--- NOTE | 2019-10-13 18:07 | NUR ---
Problems reprioritized. Patient report given, questions answered & plan of care reviewed with Christy HERNANDEZ.
--- NOTE | 2019-10-13 18:30 | NUR ---
Patient in room ICU 2041. I have received report from DAVID Barnett and had the opportunity to ask questions and assume patient care.
[2019-10-13] MEDS: pravastatin 40mg tablet PO SCH (21:46)
[2019-10-13] MEDS: sennosides/docusate sodium tablet PO SCH (21:46)
[2019-10-13] MEDS: insulin glargine (Lantus) pen - multi-dose SQ SCH (21:49)
[2019-10-14] VITALS (24 sets, daily range): BP systolic 91–118; BP diastolic 53–81
[2019-10-14] MEDS: ondansetron/PF 4mg/2ml inj IV PRN ×2 (00:27→08:19)
[2019-10-14] MEDS: proCHLORperazine 10mg tablet PO PRN ×2 (01:31→12:48)
[2019-10-14] MEDS: traMADol 50MG tablet PO SCH ×4 (01:32→19:52)
[2019-10-14] MEDS: lactulose 20gm/30ml cup PO SCH ×4 (01:32→19:51)
[2019-10-14] MEDS ORDERED: mag hydrox/Alum hydrox/simeth 30ml oral suspension PO ONE (01:50)
[2019-10-14] MEDS ORDERED: potassium Cl 20mEq/100mL bag 100 ML IV PRN (04:40)
[2019-10-14 06:07] LABS: BASOPHILS # (AUTO) 0.1 X10'3 (0-0.2); EOSINOPHILS # (AUTO) 0.3 X10'3 (0-0.9); HEMATOCRIT 26.8 % (35.0-45.0); HEMOGLOBIN 8.7 g/dl (12.0-16.0); LYMPHOCYTES # (AUTO) 1.2 X10'3 (1.1-4.8); MEAN CORPUSCULAR VOLUME 94.4 FL (78-98); RED BLOOD COUNT 2.84 X10'6 (4.20-5.60); WHITE BLOOD COUNT 8.5 X10'3 (4.5-11.0)
[2019-10-14 06:10] LABS: EOSINOPHILS % (AUTO) 3.2 % (0-6); LYMPHOCYTES % (AUTO) 14.4 % (21-51); MEAN CORPUSCULAR HEMOGLOBIN 30.6 PG (27.0-31.0); MEAN CORPUSCULAR HGB CONC 32.4 g/dL (33.0-36.5); MEAN PLATELET VOLUME 10.4 FL (7.4-10.4); MONOCYTES # (AUTO) 0.6 X10'3 (0-0.9); MONOCYTES % (AUTO) 6.6 % (2-12); NEUTROPHILS # (AUTO) 6.3 X10'3 (1.8-7.7); NEUTROPHILS % (AUTO) 74.8 % (42-75); PLATELET COUNT 256 X10'3 (140-440); RED CELL DISTRIBUTION WIDTH 14.3 % (11.5-14.5)
[2019-10-14 06:35] LABS: ALANINE AMINOTRANSFERASE 10 U/L (12-78); ALBUMIN/GLOBULIN RATIO 0.5 (1.1-1.5); ANION GAP 8 (8-16); ASPARTATE AMINO TRANSFERASE 17 U/L (10-37); BILIRUBIN,TOTAL 0.3 MG/DL (0.1-1.0); BLOOD UREA NITROGEN 21 MG/DL (7-18); CALCIUM 8.4 MG/DL (8.5-10.1); CHLORIDE 101 MMOL/L (99-107); GLUCOSE 109 MG/DL (70-104); MAGNESIUM 1.6 MG/DL (1.5-2.4); PHOSPHORUS 3.2 MG/DL (2.3-4.5); SODIUM 136 MMOL/L (135-145); TOTAL CARBON DIOXIDE 26.8 MMOL/L (24-32); TOTAL PROTEIN 5.7 G/DL (6.4-8.2); eGFR 38 ML/MIN
--- NOTE | 2019-10-14 06:41 | NUR ---
Problems reprioritized. Patient report given, questions answered & plan of care reviewed with DAVID Mack.
[2019-10-14 06:58] LABS: ALKALINE PHOSPHATASE 79 IU/L (46-116)
[2019-10-14] MEDS: JUVEN Smoothie Arginine/Glut./Ca2+Bmb (Juven 19.3pkt) 240ml cup PO SCH ×2 (07:30→17:24)
[2019-10-14] MEDS: levoTHYROXINE 125mcg tablet PO SCH (08:19)
[2019-10-14] MEDS: gabapentin 300mg capsule PO SCH (08:19)
[2019-10-14] MEDS: famotidine 10mg tablet PO SCH ×2 (08:19→21:41)
[2019-10-14] MEDS: docusate sod 100mg capsule PO SCH ×2 (08:19→19:52)
[2019-10-14] MEDS: nystatin 15 GM powder TP SCH ×3 (08:20→21:42)
[2019-10-14] MEDS: fludrocortisone acetate 0.1mg tablet PO SCH ×2 (08:20→19:52)
[2019-10-14] MEDS: apixaban 5mg tablet PO SCH ×2 (08:20→19:52)
--- NOTE | 2019-10-14 11:29 | NUR ---
F/u (10/13): Pt PO declining past 5 days to 25% avg meals; refusing Seth smoothies. RN reports pt no longer likes ONS; ELSA d/w RN regarding cancelling ONS if MD agreeable. Moderate BM 10/12 though did have considerable constipation prior; noted to have nausea/constipation today likely to impact PO. Receiving routine colace, senna, and RN reports attempting to administer lactulose today. Noted pt is receiving ultram Q6; can by constipating. Will monitor for additional protein needs for wound healing; pt declines other ONS since dislikes. Recommendations: 1) Continue CHO controlled diet; encourage PO 2) monitor for additional protein preferences; refusing ONS 3) Routine bowel care 4) weekly wts Addendum: 10/14/19 at [address] Amended: Links added.
[2019-10-14] MEDS: insulin Lispro (HumaLOG) vial - multi-dose SQ SCH (13:52)
--- NOTE | 2019-10-14 18:30 | NUR ---
Patient in room ICU 2041. I have received report from Serjio HERNANDEZ and had the opportunity to ask questions and assume patient care. Pt received awake alert & oriented. On oxygen at 1L/M with O2 saturation 96%. Rhythm is sinus. Dobutamine drip at 2mcg/kg/min, Levophed @ 0.03mcg/kg/min. IV site is PICC line right upper arm. Cannon cath drains cloudy yellow urine. No distress at shift change.
--- NOTE | 2019-10-14 18:37 | NUR ---
Pt has had a decreased appetite, complained of nausea x2 rcvd reglan and compazine. BS at lunch 196 rechecked and confirmed. Pt consumed 20 grams of carbs, mostly fluids, but did continued to not have an appetite . Treated at level 6 rcvd 16 units per protocol. Evening BS 53. Pt asymptomatic. Administered 15 gram glucose per protocol. Endorsed to pm RN, for recheck in 15 minutes.
[2019-10-14] MEDS: DOBUTamine-DoBUTrex 500mg/D5W 250 ML IV PRN (21:09)
[2019-10-14] MEDS: sennosides/docusate sodium tablet PO SCH (21:40)
[2019-10-14] MEDS: insulin glargine (Lantus) pen - multi-dose SQ SCH (21:52)
[2019-10-14] MEDS: pravastatin 40mg tablet PO SCH (21:53)
[2019-10-15] VITALS (17 sets, daily range): BP systolic 91–111; BP diastolic 52–75
[2019-10-15] MEDS: ondansetron/PF 4mg/2ml inj IV PRN ×2 (00:50→08:22)
[2019-10-15] MEDS: lactulose 20gm/30ml cup PO SCH ×2 (02:32→08:11)
[2019-10-15] MEDS: traMADol 50MG tablet PO SCH ×3 (02:33→14:00)
--- NOTE | 2019-10-15 05:30 | NUR ---
Enema without results. Stool disimpacted manually. Large amount of soft brown stool evacuated. No further stool reachable. Bath rendered & linen/gown changed.Pt tolerated procedure well.
--- NOTE | 2019-10-15 06:34 | NUR ---
Patient in room ICU 2041. I have received report and had the opportunity to ask questions and assume patient care.
[2019-10-15 06:40] LABS: BASOPHILS # (AUTO) 0.1 X10'3 (0-0.2); BASOPHILS % (AUTO) 1.2 % (0-1); EOSINOPHILS # (AUTO) 0.3 X10'3 (0-0.9); EOSINOPHILS % (AUTO) 3.8 % (0-6); HEMOGLOBIN 8.6 g/dl (12.0-16.0); LYMPHOCYTES # (AUTO) 1.5 X10'3 (1.1-4.8); MEAN CORPUSCULAR HEMOGLOBIN 30.3 PG (27.0-31.0); MEAN CORPUSCULAR HGB CONC 32.1 g/dL (33.0-36.5); MEAN CORPUSCULAR VOLUME 94.4 FL (78-98); MEAN PLATELET VOLUME 8.4 FL (7.4-10.4); MONOCYTES # (AUTO) 0.6 X10'3 (0-0.9); MONOCYTES % (AUTO) 7.6 % (2-12); NEUTROPHILS # (AUTO) 5.3 X10'3 (1.8-7.7); NEUTROPHILS % (AUTO) 68.4 % (42-75); PLATELET COUNT 345 X10'3 (140-440); RED BLOOD COUNT 2.85 X10'6 (4.20-5.60); RED CELL DISTRIBUTION WIDTH 14.6 % (11.5-14.5); WHITE BLOOD COUNT 7.7 X10'3 (4.5-11.0)
[2019-10-15 06:58] LABS: ALANINE AMINOTRANSFERASE 10 U/L (12-78); ALBUMIN/GLOBULIN RATIO 0.5 (1.1-1.5); ALKALINE PHOSPHATASE 81 IU/L (46-116); ANION GAP 8 (8-16); ASPARTATE AMINO TRANSFERASE 15 U/L (10-37); BILIRUBIN,TOTAL 0.4 MG/DL (0.1-1.0); BLOOD UREA NITROGEN 17 MG/DL (7-18); BUN/CREATININE RATIO 12.4 (6.6-38.0); CALCIUM 8.4 MG/DL (8.5-10.1); CHLORIDE 102 MMOL/L (99-107); CREATININE 1.37 MG/DL (0.40-0.90); GLUCOSE 117 MG/DL (70-104); MAGNESIUM 1.7 MG/DL (1.5-2.4); PHOSPHORUS 3.3 MG/DL (2.3-4.5); POTASSIUM 3.8 MMOL/L (3.5-5.1); SODIUM 136 MMOL/L (135-145); TOTAL CARBON DIOXIDE 26.5 MMOL/L (24-32); TOTAL PROTEIN 5.8 G/DL (6.4-8.2); eGFR 39 ML/MIN
[2019-10-15] MEDS: JUVEN Smoothie Arginine/Glut./Ca2+Bmb (Juven 19.3pkt) 240ml cup PO SCH ×2 (07:30→17:31)
[2019-10-15] MEDS: gabapentin 300mg capsule PO SCH (07:33)
[2019-10-15] MEDS: fludrocortisone acetate 0.1mg tablet PO SCH (07:33)
[2019-10-15] MEDS: docusate sod 100mg capsule PO SCH (07:33)
[2019-10-15] MEDS: levoTHYROXINE 125mcg tablet PO SCH (07:33)
[2019-10-15] MEDS: nystatin 15 GM powder TP SCH ×2 (07:33→13:29)
[2019-10-15] MEDS: apixaban 5mg tablet PO SCH (07:33)
[2019-10-15] MEDS: famotidine 10mg tablet PO SCH (07:43)
[2019-10-15] MEDS: insulin Lispro (HumaLOG) vial - multi-dose SQ SCH ×2 (09:39→13:24)
--- NOTE | 2019-10-15 15:46 | NUR ---
[place] documentation: I have reviewed and agree with all interventions, assessments performed and documented by Bhavana HERNANDEZ. Addendum: 10/15/19 at 1547 by Fiona Whitney RN [facility] Medication Administration: For this medication-pass time frame, all medication were reviewed, dispensed, administered and documented per hospital policy by Bhavana HERNANDEZ.
[2019-10-15] MEDS ORDERED: sennosides/docusate sodium tablet PO SCH (21:00)
[2019-10-16] MEDS ORDERED: polyethylene glycol 3350 17gm powd pack PO SCH (08:00)
== END 2019-10-15 17:51 | DRG 252 ==
LOC: ER 10:04 → ED HOLD 12:35 → ICU 2S 17:29
PROVIDERS: ADMIT Internal Medicine Critical Care Medicine; ATTEND Internal Medicine Critical Care Medicine
PROC: 0KNT0ZZ Release Left Lower Leg Muscle, Open Approach (ICD-10-PCS; 2019-10-02)
PROC: 03HY32Z Insertion of Monitoring Device into Upper Artery, Percutaneous Approach (ICD-10-PCS; 2019-10-02)
PROC: 4A133B1 Monitoring of Arterial Pressure, Peripheral, Percutaneous Approach (ICD-10-PCS; 2019-10-02)
PROC: 4A133J1 Monitoring of Arterial Pulse, Peripheral, Percutaneous Approach (ICD-10-PCS; 2019-10-02)
PROC: B4201ZZ Computerized Tomography (CT Scan) of Abdominal Aorta using Low Osmolar Contrast (ICD-10-PCS; 2019-10-02)
PROC: B42H1ZZ Computerized Tomography (CT Scan) of Bilateral Lower Extremity Arteries using Low Osmolar Contrast (ICD-10-PCS; 2019-10-02)
PROC: 04CN0ZZ Extirpation of Matter from Left Popliteal Artery, Open Approach (ICD-10-PCS; principal; 2019-10-02 13:43)
PROC: 0KQT3ZZ Repair Left Lower Leg Muscle, Percutaneous Approach (ICD-10-PCS; 2019-10-07)
PROC: 02HV33Z Insertion of Infusion Device into Superior Vena Cava, Percutaneous Approach (ICD-10-PCS; 2019-10-10)
PROC: 4A02X4A Measurement of Cardiac Electrical Activity, Guidance, External Approach (ICD-10-PCS; 2019-10-10)
DX: I70.202 Unspecified atherosclerosis of native arteries of extremities, left leg (principal); N17.0 Acute kidney failure with tubular necrosis; I50.22 Chronic systolic (congestive) heart failure; I42.9 Cardiomyopathy, unspecified; Z68.43 Body mass index [BMI] 50.0-59.9, adult; I13.0 Hypertensive heart and chronic kidney disease with heart failure and stage 1 through stage 4 chronic kidney disease, or unspecified chronic kidney disease; N18.9 Chronic kidney disease, unspecified; E11.22 Type 2 diabetes mellitus with diabetic chronic kidney disease; E11.51 Type 2 diabetes mellitus with diabetic peripheral angiopathy without gangrene; E66.9 Obesity, unspecified; E78.00 Pure hypercholesterolemia, unspecified; E78.5 Hyperlipidemia, unspecified; F32.9 Major depressive disorder, single episode, unspecified; G83.9 Paralytic syndrome, unspecified; G89.29 Other chronic pain; K21.9 Gastro-esophageal reflux disease without esophagitis; M19.90 Unspecified osteoarthritis, unspecified site; J44.9 Chronic obstructive pulmonary disease, unspecified; I25.10 Atherosclerotic heart disease of native coronary artery without angina pectoris; I25.2 Old myocardial infarction; Z82.49 Family history of ischemic heart disease and other diseases of the circulatory system; Z86.711 Personal history of pulmonary embolism; Z87.891 Personal history of nicotine dependence; Z90.49 Acquired absence of other specified parts of digestive tract; Z95.0 Presence of cardiac pacemaker; Z88.8 Allergy status to other drugs, medicaments and biological substances; Z88.2 Allergy status to sulfonamides; Z79.899 Other long term (current) drug therapy; I95.9 Hypotension, unspecified
CPT/HCPCS: 36415; 36573; 71045; 73706; 74174; 80053; 80069; 81001; 82330; 82570; 82810; 82948; 83036; 83605; 83735; 83880; 84100; 84300; 84484; 85025; 85027; 85379; 85610; 85730; 87081; 87207; 88304; 93005; 93306; 93926; 96360; 97110; 97116; 97161; 97530; 99291; A4618; A6223; A6446; A6449; A7000; C1757; C1758; G0378; J0690; J1100; J1170; J1250; J1644; J1815; J1940; J2001; J2250; J2370; J2405; J2704; J2710; J3010; J3475; J3490; J7030; J7040; J7050; J7120; Q0164; Q9967

== ENCOUNTER 2019-12-08 14:02 | Emergency (ER) | payer MEDICARE ==
[~2019-12-08] VITALS: Ht 160 cm; Wt 104.5 kg
[~2019-12-08 14:02] MED LIST changes: +ACET-1008 PO; -AMA1T PO; -CARV-50 PO; +CARV3.122 PO; -COU7.5T PO; -FURO-150 PO; +GABA300C PO; +INSU100V9 SQ; -IPRA3AMP31 IH; -LACT10SO PO; -LANTUS SQ; -LIDO1ADH TP; -LISI-604 PO; +LISI10TA4 PO; +METF-438 PO; -METF500T PO; +PROC10TA10 PO; +RIVA20TA PO; -SPIR25TA PO; +SPIR25TA5 PO; -TRAM50TA2 PO; -WARF-113 PO
[2019-12-08] MEDS ORDERED: ondansetron 4mg rapidly disintigrating tab PO ONE (16:00)
[2019-12-08] MEDS ORDERED: acetaminophen 325mg tablet PO ONE (16:00)
[2019-12-08] MEDS ORDERED: normal saline 1000ML IV soln IVB ONE (16:20)
[2019-12-08] MEDS ORDERED: bisacodyl 10mg suppository rectal RC ONE (16:20)
[2019-12-08 16:48] LABS: BASOPHILS % (AUTO) 0.4 % (0-1); EOSINOPHILS # (AUTO) 0.6 X10'3 (0-0.9); EOSINOPHILS % (AUTO) 6.8 % (0-6); HEMATOCRIT 35.3 % (35.0-45.0); HEMOGLOBIN 11.5 g/dl (12.0-16.0); LYMPHOCYTES # (AUTO) 1.6 X10'3 (1.1-4.8); LYMPHOCYTES % (AUTO) 18.7 % (21-51); MEAN CORPUSCULAR HEMOGLOBIN 29.3 PG (27.0-31.0); MEAN CORPUSCULAR HGB CONC 32.5 g/dL (33.0-36.5); MEAN CORPUSCULAR VOLUME 90.1 FL (78-98); MEAN PLATELET VOLUME 8.2 FL (7.4-10.4); MONOCYTES # (AUTO) 0.8 X10'3 (0-0.9); MONOCYTES % (AUTO) 9.3 % (2-12); NEUTROPHILS # (AUTO) 5.4 X10'3 (1.8-7.7); NEUTROPHILS % (AUTO) 64.8 % (42-75); PLATELET COUNT 319 X10'3 (140-440); RED BLOOD COUNT 3.92 X10'6 (4.20-5.60); RED CELL DISTRIBUTION WIDTH 15.7 % (11.5-14.5); WHITE BLOOD COUNT 8.4 X10'3 (4.5-11.0)
[2019-12-08 17:03] LABS: PARTIAL THROMBOPLASTIN TIME 30 SECONDS (22-32)
[2019-12-08 17:19] LABS: ALANINE AMINOTRANSFERASE 11 U/L (12-78); ALBUMIN/GLOBULIN RATIO 0.7 (1.1-1.5); ALKALINE PHOSPHATASE 81 IU/L (46-116); ANION GAP 6 (8-16); ASPARTATE AMINO TRANSFERASE 12 U/L (10-37); BILIRUBIN,TOTAL 0.4 MG/DL (0.1-1.0); BLOOD UREA NITROGEN 21 MG/DL (7-18); BUN/CREATININE RATIO 14.6 (6.6-38.0); CALCIUM 8.5 MG/DL (8.5-10.1); CHLORIDE 102 MMOL/L (99-107); CREATININE 1.44 MG/DL (0.40-0.90); GLUCOSE 99 MG/DL (70-104); POTASSIUM 3.9 MMOL/L (3.5-5.1); SODIUM 136 MMOL/L (135-145); TOTAL CARBON DIOXIDE 28.2 MMOL/L (24-32); TOTAL PROTEIN 7.3 G/DL (6.4-8.2); eGFR 36 ML/MIN
--- NOTE | 2019-12-08 18:10 | NUR ---
TOILETING ASSIST PROVIDED. STOOL IMPACTION IN RECTUM NOTED, ATTEMPTED TO CLEAR WITH HYGIENE EFFORTS.
[2019-12-08] MEDS ORDERED: bisacodyl 10mg suppository rectal RC STA (18:21)
[2019-12-08] MEDS ORDERED: magnesium citrate 296ml oral solution PO ONE (18:25)
[2019-12-08] MEDS ORDERED: POLY17PO10 PO (19:43)
[2019-12-08 20:42] VITALS: BP 109/66
== END 2019-12-08 20:44 | disposition home or self-care (01) ==
LOC: ER 14:03
DX: E86.0 Dehydration (principal); K59.00 Constipation, unspecified; R10.30 Lower abdominal pain, unspecified; I25.10 Atherosclerotic heart disease of native coronary artery without angina pectoris; I10 Essential (primary) hypertension
CPT/HCPCS: 36415; 74176; 80053; 83605; 84145; 85025; 85610; 85730; 87040; 96360; 96361; 99285; J7030; 99284

== ENCOUNTER 2020-03-24 13:00 | Emergency (ER) | payer MEDICARE ==
[~2020-03-24] VITALS: Ht 162.6 cm; Wt 109.1 kg
[~2020-03-24 13:00] MED LIST changes: +LISI10TA27 PO; -LISI10TA4 PO
[2020-03-24 13:58] LABS: CLARITY,URINE CLOUDY (Clear); COLOR,URINE YELLOW (Yellow); GLUCOSE, URINE NEGATIVE (Neg); KETONES,URINE TRACE mg/dl (Neg); LEUKOCYTE ESTERASE ,URINE MODERATE (Neg); NITRITES, URINE NEGATIVE (Neg); OCCULT BLOOD,URINE LARGE (Neg); PROTEIN,URINE 100 mg/dl (Neg)
[2020-03-24 14:05] LABS: UA COLLECTION TYPE STRAIGHT CATH
[2020-03-24 14:06] LABS: WBC,URINE TNTC /HPF (0-4)
[2020-03-24 14:07] LABS: BACTERIA,URINE 4+ /HPF (Neg); MUCUS STRANDS NONE SEEN /LPF (Neg); SQUAMOUS EPITHELIAL CELL,UR FEW /LPF (FEW)
[2020-03-24] MEDS ORDERED: normal saline 1000ml 1,000 ML IV ONE (14:35)
[2020-03-24] MEDS ORDERED: CefTRIAXone/D5W-Rocephin 1gm 50 ML IV ONE (14:35)
--- NOTE | 2020-03-24 15:05 | NUR ---
JODIE FROM [facility] WILL COME BACK AND START IV LINE,PRIMARY NURSE ON BREAK.
[2020-03-24] MEDS ORDERED: CEPH-572 PO (15:24)
[2020-03-24] MEDS ORDERED: ONDA4TAB6 PO (15:24)
--- NOTE | 2020-03-24 15:30 | NUR ---
JODIE FROM [facility] STATED IF PT GETS D/C TONY {DOROTHY}WILL COME PICK HER UP .SHE IS GOING TO REPORT APS ABOUT HER BEHAVIOURAL CONCERN RELATED TO HH HELP AVAILABILITY.
[2020-03-24 15:33] LABS: BASOPHILS % (AUTO) 0.3 % (0-1); EOSINOPHILS % (AUTO) 0.5 % (0-6); HEMATOCRIT 37.1 % (35.0-45.0); HEMOGLOBIN 11.4 g/dl (12.0-16.0); LYMPHOCYTES # (AUTO) 1.2 X10'3 (1.1-4.8); LYMPHOCYTES % (AUTO) 15.8 % (21-51); MEAN CORPUSCULAR HEMOGLOBIN 25.5 PG (27.0-31.0); MEAN CORPUSCULAR HGB CONC 30.7 g/dL (33.0-36.5); MEAN CORPUSCULAR VOLUME 83.1 FL (78-98); MONOCYTES # (AUTO) 0.6 X10'3 (0-0.9); MONOCYTES % (AUTO) 8.5 % (2-12); NEUTROPHILS # (AUTO) 5.6 X10'3 (1.8-7.7); NEUTROPHILS % (AUTO) 74.9 % (42-75); PLATELET COUNT 231 X10'3 (140-440); RED BLOOD COUNT 4.47 X10'6 (4.20-5.60); RED CELL DISTRIBUTION WIDTH 22.7 % (11.5-14.5); WHITE BLOOD COUNT 7.5 X10'3 (4.5-11.0)
[2020-03-24 15:46] LABS: ANISOCYTOSIS 3+; MICROCYTOSIS 1+; PLATELET ESTIMATE NORMAL
[2020-03-24 15:47] LABS: HYPOCHROMASIA 1+
[2020-03-24 15:48] LABS: ELLIPTOCYTES FEW
[2020-03-24 15:49] LABS: ALANINE AMINOTRANSFERASE 7 U/L (12-78); ALBUMIN 3.2 G/DL (3.4-5.0); ALBUMIN/GLOBULIN RATIO 0.8 (1.1-1.5); ALKALINE PHOSPHATASE 141 IU/L (46-116); ANION GAP 14 (8-16); ASPARTATE AMINO TRANSFERASE 12 U/L (10-37); BILIRUBIN,TOTAL 1.9 MG/DL (0.1-1.0); BLOOD UREA NITROGEN 24 MG/DL (7-18); BUN/CREATININE RATIO 14.1 (6.6-38.0); CALCIUM 8.6 MG/DL (8.5-10.1); CHLORIDE 106 MMOL/L (99-107); GLUCOSE 163 MG/DL (70-104); POTASSIUM 4.3 MMOL/L (3.5-5.1); SODIUM 138 MMOL/L (135-145); TOTAL CARBON DIOXIDE 18.5 MMOL/L (24-32); TOTAL PROTEIN 7.2 G/DL (6.4-8.2); eGFR 30 ML/MIN
[2020-03-24] MEDS ORDERED: proCHLORperazine 10 MG/2 ml inj IV ONE (16:30)
[2020-03-24 17:02] VITALS: BP 174/56
--- NOTE | 2020-03-25 11:21 | NUR ---
SHAZIA FROM [facility] STATES THAT SHE HAS RECEIVED ATTESTATION FOR HH SERVICES. HOWEVER DR LEVI IS NOT PATIENT'S CURRENT DOCTOR. PATIENT IS ESTABLISHING CARE WITH ADAN SCOTT, [facility]. APPOINTMENT IS March, AT 240PM. I CALLED [facility] [phone]. OFFICE STAFF HAS LEFT MESSAGE ON PATIENT'S CHART, ASKING ADAN TO ORDER HH FROM [facility]. PT OT RN SW. PLAN IS TO ESTABLISH HH AFTER PCP APPOINTMENT. I CALLED PATIENT. SHE STATES THAT SHE IS FEELING OK. HER NEXT DOOR NEIGHBOR HAS PICKED UP HER KEFLEX, AND PATIENT STATES THAT SHE WILL TAKE IT SOON SHE GETS IT. SHE HAS BEEN AMBULATING IN HER HOME WITH HER FWW AND WC. SHE VERBALIZES UNDERSTANDING THAT SHE WILL RETURN TO E.D. IF CONDITION WORSENS.
== END 2020-03-24 17:05 | disposition home or self-care (01) ==
LOC: ER 13:01
DX: N39.0 Urinary tract infection, site not specified (principal); I25.10 Atherosclerotic heart disease of native coronary artery without angina pectoris; E78.00 Pure hypercholesterolemia, unspecified; K21.9 Gastro-esophageal reflux disease without esophagitis; E11.22 Type 2 diabetes mellitus with diabetic chronic kidney disease; N18.9 Chronic kidney disease, unspecified; I26.99 Other pulmonary embolism without acute cor pulmonale; F32.9 Major depressive disorder, single episode, unspecified; Z90.49 Acquired absence of other specified parts of digestive tract; Z79.899 Other long term (current) drug therapy; Z88.5 Allergy status to narcotic agent; Z88.2 Allergy status to sulfonamides; Z88.1 Allergy status to other antibiotic agents; Z88.8 Allergy status to other drugs, medicaments and biological substances
CPT/HCPCS: 80053; 81001; 82948; 85008; 85025; 87088; 87186; 96365; 96375; 99284; J0696; J0780; J7030

== ENCOUNTER 2020-06-05 17:11 | Emergency (ER) | payer MEDICARE ==
[~2020-06-05] VITALS: Ht 160 cm; Wt 127.3 kg
[~2020-06-05 17:11] MED LIST changes: +CARV3.12 PO; -CARV3.122 PO; -GABA300C PO; +HYDR2TAB28 PO; -LEVO125T PO; -LISI10TA27 PO; +LISI20TA28 PO; -METF-438 PO; -PRAV40TA3 PO; +SITA100T11 PO; -SPIR25TA5 PO; +TRAM50TA2 PO
[2020-06-05 18:26] LABS: BASOPHILS # (AUTO) 0.1 X10'3 (0-0.2); BASOPHILS % (AUTO) 1.7 % (0-1); EOSINOPHILS # (AUTO) 0.3 X10'3 (0-0.9); EOSINOPHILS % (AUTO) 5.3 % (0-6); HEMATOCRIT 31.1 % (35.0-45.0); HEMOGLOBIN 9.7 g/dl (12.0-16.0); LYMPHOCYTES # (AUTO) 1.1 X10'3 (1.1-4.8); LYMPHOCYTES % (AUTO) 17.8 % (21-51); MEAN CORPUSCULAR HEMOGLOBIN 26.6 PG (27.0-31.0); MEAN CORPUSCULAR HGB CONC 31.2 g/dL (33.0-36.5); MEAN CORPUSCULAR VOLUME 85.2 FL (78-98); MEAN PLATELET VOLUME 8.6 FL (7.4-10.4); MONOCYTES # (AUTO) 0.7 X10'3 (0-0.9); MONOCYTES % (AUTO) 11.1 % (2-12); NEUTROPHILS % (AUTO) 64.1 % (42-75); PLATELET COUNT 112 X10'3 (140-440); RED BLOOD COUNT 3.65 X10'6 (4.20-5.60); RED CELL DISTRIBUTION WIDTH 22.9 % (11.5-14.5); WHITE BLOOD COUNT 6.2 X10'3 (4.5-11.0)
[2020-06-05 18:41] LABS: ALANINE AMINOTRANSFERASE 16 U/L (12-78); ALBUMIN/GLOBULIN RATIO 0.8 (1.1-1.5); ALKALINE PHOSPHATASE 93 IU/L (46-116); ANION GAP 7 (8-16); ASPARTATE AMINO TRANSFERASE 17 U/L (10-37); BILIRUBIN,TOTAL 0.5 MG/DL (0.1-1.0); BLOOD UREA NITROGEN 31 MG/DL (7-18); BUN/CREATININE RATIO 21.1 (6.6-38.0); CALCIUM 8.8 MG/DL (8.5-10.1); CHLORIDE 105 MMOL/L (99-107); CREATININE 1.47 MG/DL (0.40-0.90); GLUCOSE 177 MG/DL (70-104); LIPASE 59 U/L (73-393); POTASSIUM 5.7 MMOL/L (3.5-5.1); SODIUM 138 MMOL/L (135-145); TOTAL CARBON DIOXIDE 25.8 MMOL/L (24-32); TOTAL PROTEIN 6.8 G/DL (6.4-8.2); eGFR 36 ML/MIN
[2020-06-05 19:08] LABS: NUCLEATED RED BLOOD CELLS 1 /100WBC (0-0); TOTAL CELLS COUNTED 200
[2020-06-05 19:09] LABS: ANISOCYTOSIS 3+; PLATELET ESTIMATE DECREASED
[2020-06-05 19:10] LABS: BURR CELLS FEW; HYPOCHROMASIA 1+; SCHISTOCYTES FEW; TARGET CELLS FEW
[2020-06-05 21:43] LABS: CLARITY,URINE CLOUDY (Clear); COLOR,URINE BROWN (Yellow); GLUCOSE, URINE NEGATIVE (Neg); KETONES,URINE TRACE mg/dl (Neg); LEUKOCYTE ESTERASE ,URINE MODERATE (Neg); NITRITES, URINE POSITIVE (Neg); OCCULT BLOOD,URINE LARGE (Neg); PH,URINE 5.5 (4.8-8.0); PROTEIN,URINE 100 mg/dl (Neg)
[2020-06-05 21:47] LABS: UA COLLECTION TYPE CLN CATCH MIDSTREAM
[2020-06-05 21:51] LABS: BACTERIA,URINE 4+ /HPF (Neg); MUCUS STRANDS FEW /LPF (Neg); RBC,URINE TNTC /HPF (0-2); SQUAMOUS EPITHELIAL CELL,UR MODERATE /LPF (FEW)
[2020-06-05] MEDS ORDERED: normal saline 1000ML IV soln IVB ONE (22:05)
[2020-06-05] MEDS ORDERED: CefTRIAXone/D5W-Rocephin 1gm 50 ML IV ONE (22:05)
[2020-06-06] MEDS ORDERED: morphine 4 MG/ML inj SYRINge IV ONE
[2020-06-06] MEDS ORDERED: HYDROmorphone inj. 0.5 MG/0.5 ML DISP.SYRIN IV ONE (01:20)
[2020-06-06] MEDS ORDERED: proCHLORperazine 10 MG/2 ml inj IV PRN (01:20)
[2020-06-06] MEDS ORDERED: insulin regular, human U-100 3ml vial - multi-dose IV ONE (04:45)
[2020-06-06] MEDS ORDERED: dextrose 50%-water 50ml dispensing syringe IV ONE (04:45)
[2020-06-06] MEDS ORDERED: insulin regular, human 10 units/0.1 ml syringe IV ONE (04:50)
[2020-06-06 06:27] LABS: ALBUMIN 2.6 G/DL (3.4-5.0); ANION GAP 7 (8-16); BLOOD UREA NITROGEN 27 MG/DL (7-18); BUN/CREATININE RATIO 21.4 (6.6-38.0); CALCIUM 7.7 MG/DL (8.5-10.1); CHLORIDE 107 MMOL/L (99-107); CREATININE 1.26 MG/DL (0.40-0.90); GLUCOSE 246 MG/DL (70-104); POTASSIUM 4.8 MMOL/L (3.5-5.1); SODIUM 140 MMOL/L (135-145); TOTAL CARBON DIOXIDE 25.6 MMOL/L (24-32); eGFR 42 ML/MIN
[2020-06-06 07:33] VITALS: BP 114/77
== END 2020-06-06 07:34 ==
LOC: ER 17:11
DX: N39.0 Urinary tract infection, site not specified (principal); R53.1 Weakness; R11.2 Nausea with vomiting, unspecified; R10.84 Generalized abdominal pain; I25.10 Atherosclerotic heart disease of native coronary artery without angina pectoris; E11.22 Type 2 diabetes mellitus with diabetic chronic kidney disease; N18.9 Chronic kidney disease, unspecified; E78.00 Pure hypercholesterolemia, unspecified; I25.2 Old myocardial infarction; J44.9 Chronic obstructive pulmonary disease, unspecified; K21.9 Gastro-esophageal reflux disease without esophagitis; M19.90 Unspecified osteoarthritis, unspecified site; G89.29 Other chronic pain; F32.9 Major depressive disorder, single episode, unspecified; Z86.711 Personal history of pulmonary embolism; Z87.440 Personal history of urinary (tract) infections; Z86.718 Personal history of other venous thrombosis and embolism; Z90.89 Acquired absence of other organs; Z90.49 Acquired absence of other specified parts of digestive tract; Z95.0 Presence of cardiac pacemaker; Z60.2 Problems related to living alone; Z88.2 Allergy status to sulfonamides; Z88.8 Allergy status to other drugs, medicaments and biological substances; Z88.5 Allergy status to narcotic agent; Z79.4 Long term (current) use of insulin; Z79.899 Other long term (current) drug therapy
CPT/HCPCS: 36415; 80048; 80053; 81001; 82948; 83690; 85007; 85025; 87077; 87088; 87186; 93005; 96365; 96366; 96375; 99285; J0696; J0780; J1170; J1815; J7030

== ENCOUNTER 2020-06-11 10:39 | Emergency (ER) | payer MEDICARE ==
[~2020-06-11] VITALS: Ht 160 cm; Wt 118.2 kg
[2020-06-11 10:50] VITALS: BP 110/59
[2020-06-11] MEDS ORDERED: furosemide 40mg/4ml inj IV ONE (11:00)
[2020-06-11 11:27] LABS: BASOPHILS # (AUTO) 0.1 X10'3 (0-0.2); BASOPHILS % (AUTO) 1.2 % (0-1); EOSINOPHILS # (AUTO) 0.3 X10'3 (0-0.9); EOSINOPHILS % (AUTO) 5.4 % (0-6); HEMATOCRIT 28.1 % (35.0-45.0); HEMOGLOBIN 8.8 g/dl (12.0-16.0); LYMPHOCYTES # (AUTO) 1.1 X10'3 (1.1-4.8); LYMPHOCYTES % (AUTO) 20.3 % (21-51); MEAN CORPUSCULAR HEMOGLOBIN 26.6 PG (27.0-31.0); MEAN CORPUSCULAR HGB CONC 31.4 g/dL (33.0-36.5); MEAN CORPUSCULAR VOLUME 84.7 FL (78-98); MEAN PLATELET VOLUME 8.6 FL (7.4-10.4); MONOCYTES # (AUTO) 0.6 X10'3 (0-0.9); MONOCYTES % (AUTO) 11.5 % (2-12); NEUTROPHILS # (AUTO) 3.4 X10'3 (1.8-7.7); NEUTROPHILS % (AUTO) 61.6 % (42-75); PLATELET COUNT 234 X10'3 (140-440); RED BLOOD COUNT 3.31 X10'6 (4.20-5.60); RED CELL DISTRIBUTION WIDTH 23.7 % (11.5-14.5); WHITE BLOOD COUNT 5.5 X10'3 (4.5-11.0)
[2020-06-11 11:42] LABS: ALANINE AMINOTRANSFERASE 17 U/L (12-78); ALBUMIN 3.1 G/DL (3.4-5.0); ALBUMIN/GLOBULIN RATIO 0.8 (1.1-1.5); ALKALINE PHOSPHATASE 112 IU/L (46-116); ANION GAP 9 (8-16); ASPARTATE AMINO TRANSFERASE 18 U/L (10-37); BILIRUBIN,TOTAL 0.4 MG/DL (0.1-1.0); BLOOD UREA NITROGEN 25 MG/DL (7-18); CALCIUM 9.1 MG/DL (8.5-10.1); CHLORIDE 101 MMOL/L (99-107); CREATININE 1.56 MG/DL (0.40-0.90); GLUCOSE 131 MG/DL (70-104); POTASSIUM 4.6 MMOL/L (3.5-5.1); SODIUM 138 MMOL/L (135-145); TOTAL CARBON DIOXIDE 27.9 MMOL/L (24-32); TOTAL PROTEIN 6.9 G/DL (6.4-8.2); eGFR 33 ML/MIN
[2020-06-11 11:50] LABS: PLATELET ESTIMATE NORMAL
[2020-06-11 11:51] LABS: ANISOCYTOSIS 3+; HYPOCHROMASIA 1+; MICROCYTOSIS 1+; TARGET CELLS FEW
== END 2020-06-11 14:33 ==
LOC: ER 10:39
DX: R07.89 Other chest pain (principal); R60.0 Localized edema; E11.22 Type 2 diabetes mellitus with diabetic chronic kidney disease; N18.9 Chronic kidney disease, unspecified; I50.9 Heart failure, unspecified; I25.10 Atherosclerotic heart disease of native coronary artery without angina pectoris; E78.00 Pure hypercholesterolemia, unspecified; I25.2 Old myocardial infarction; J44.9 Chronic obstructive pulmonary disease, unspecified; K21.9 Gastro-esophageal reflux disease without esophagitis; M19.90 Unspecified osteoarthritis, unspecified site; G89.29 Other chronic pain; F32.9 Major depressive disorder, single episode, unspecified; Z86.711 Personal history of pulmonary embolism; Z87.440 Personal history of urinary (tract) infections; Z86.718 Personal history of other venous thrombosis and embolism; Z90.89 Acquired absence of other organs; Z90.49 Acquired absence of other specified parts of digestive tract; Z95.0 Presence of cardiac pacemaker; Z60.2 Problems related to living alone; Z88.2 Allergy status to sulfonamides; Z88.5 Allergy status to narcotic agent; Z88.8 Allergy status to other drugs, medicaments and biological substances; Z79.4 Long term (current) use of insulin; Z79.899 Other long term (current) drug therapy
CPT/HCPCS: 36415; 71045; 80053; 83880; 84484; 85008; 85025; 93005; 96374; 99285; J1940

== ENCOUNTER 2020-07-01 16:48 | Emergency (ER) | payer MEDICARE ==
[~2020-07-01] VITALS: Ht 160 cm; Wt 109.1 kg
--- NOTE | 2020-07-01 18:54 | NUR ---
GAVE REPORT TO IVY HERNANDEZ AT [facility]. JOHNNIE CARGO RIDE WILL BE INITIATED
[2020-07-01 19:23] VITALS: BP 102/78
== END 2020-07-01 19:34 | disposition home or self-care (01) ==
LOC: ER 16:49
DX: Z95.0 Presence of cardiac pacemaker (principal); I25.10 Atherosclerotic heart disease of native coronary artery without angina pectoris; I50.9 Heart failure, unspecified; E11.22 Type 2 diabetes mellitus with diabetic chronic kidney disease; N18.9 Chronic kidney disease, unspecified; E78.00 Pure hypercholesterolemia, unspecified; I25.2 Old myocardial infarction; J44.9 Chronic obstructive pulmonary disease, unspecified; K21.9 Gastro-esophageal reflux disease without esophagitis; M19.90 Unspecified osteoarthritis, unspecified site; G89.29 Other chronic pain; F32.9 Major depressive disorder, single episode, unspecified; Z86.711 Personal history of pulmonary embolism; Z87.440 Personal history of urinary (tract) infections; Z86.718 Personal history of other venous thrombosis and embolism; Z90.89 Acquired absence of other organs; Z90.49 Acquired absence of other specified parts of digestive tract; Z98.890 Other specified postprocedural states; Z60.2 Problems related to living alone; Z88.2 Allergy status to sulfonamides; Z88.5 Allergy status to narcotic agent; Z88.8 Allergy status to other drugs, medicaments and biological substances; Z88.1 Allergy status to other antibiotic agents; Z79.4 Long term (current) use of insulin; Z79.899 Other long term (current) drug therapy
CPT/HCPCS: 71045; 93005; 99284